=== PATIENT | male | born 1950 | race Caucasian/White ===

== ENCOUNTER 2019-09-28 13:55 | Inpatient (IN) | payer BC, MEDICARE ==
--- NOTE | 2019-09-28 14:56 | ED ---
General Adult HPI - General Chief complaint: Urogenital Stated complaint: Medication reaction INQUICKER Time Seen by Provider: 09/28/19 14:05 Source: patient, RN notes reviewed, old records reviewed Mode of arrival: ambulatory Limitations: no limitations - History of Present Illness Initial comments: This is a 68-year-old male who presents emergency Department states he hasn't seen a doctor in years. Patient comes into the emergency department today because on Friday he felt something might a bit him on the tip of his penis and after that he became very edematous. Patient states he went to a urgent care and they gave him some cream and Diflucan for it. Patient was being triaged in the triage nurse realized the patient's heart rate was 33. Patient denies any symptoms he denies lightheadedness or dizziness. Patient denies any chest pain or shortness of breath. Patient states she's never been told before his heart rate is been slow. Patient denies any other complaints besides the edema in his penis. - Related Data Allergies Allergy/AdvReac Type Severity Reaction Status Date / Time No Known Allergies Allergy Verified 09/28/19 14:09 Review of Systems ROS Statement: Those systems with pertinent positive or pertinent negative responses have been documented in the HPI. ROS Other: All systems not noted in ROS Statement are negative. Past Medical History Past Medical History: No Reported History History of Any Multi-Drug Resistant Organisms: None Reported Past Surgical History: No Surgical Hx Reported Past Psychological History: No Psychological Hx Reported Smoking Status: Never smoker Past Alcohol Use History: Occasional Past Drug Use History: None Reported General Exam - General Exam Comments Initial Comments: GENERAL: Patient is well-developed and well-nourished. Patient is nontoxic and well- hydrated and is in no acute distress. ENT: Neck is soft and supple. No significant lymphadenopathy is noted. Oropharynx is clear. Moist mucous membranes. Neck has full range of motion without eliciting any pain. EYES: The sclera were anicteric and conjunctiva were pink and moist. Extraocular movements were intact and pupils were equal round and reactive to light. Eyelids were unremarkable. PULMONARY: Unlabored respirations. Good breath sounds bilaterally. No audible rales rhonchi or wheezing was noted. CARDIOVASCULAR: Patient's heart rate is in the 30s. ABDOMEN: Soft and nontender with normal bowel sounds. No palpable organomegaly was noted. There is no palpable pulsatile mass. SKIN: Skin is clear with no lesions or rashes and otherwise unremarkable. GENITALIA: Patient's foreskin around the penis is edematous there is no hair tourniquet noted. There is no redness is no drainage is no signs of infection. NEUROLOGIC: Patient is alert and oriented x3. Cranial nerves II through XII are grossly intact. Motor and sensory are also intact. Normal speech, volume and content. Symmetrical smile. MUSCULOSKELETAL: Normal extremities with adequate strength and full range of motion. LYMPHATICS: No significant lymphadenopathy is noted PSYCHIATRIC: Normal psychiatric evaluation. Limitations: no limitations Course Vital Signs 09/28/19 09/28/19 09/28/19 14:06 14:45 15:26 Temperature 98.2 F Pulse Rate 36 L 33 L Respiratory 16 Rate Blood Pressure 136/83 184/85 O2 Sat by Pulse 99 Oximetry 09/28/19 16:16 Temperature Pulse Rate 34 L Respiratory 18 Rate Blood Pressure 182/87 O2 Sat by Pulse 98 Oximetry Medical Decision Making - Medical Decision Making EKG shows sinus rhythm with a second-degree AV block at 33 bpm [place] interval is 290 QRS is 100 QT interval is 512 QTC is 378. EKG shows no ST segment elevation or depression. Chest x-ray shows no acute normalities. Patient remained asymptomatic in the emergency department. I spoke with Dr. Webber of cardiology and he wanted the patient admitted and continued to be monitored. - Lab Data Result diagrams: 09/28/19 15:01 09/28/19 15:01 Lab Results 09/28/19 09/28/19 09/28/19 Range/Units 15:01 15:01 15:01 WBC 5.0 (3.8-10.6) k/uL RBC 4.74 (4.30-5.90) m/uL Hgb 15.9 (13.0-17.5) gm/dL Hct 47.0 (39.0-53.0) % MCV 99.3 (80.0-100.0) fL MCH 33.5 (25.0-35.0) pg MCHC 33.8 (31.0-37.0) g/dL RDW 15.3 (11.5-15.5) % Plt Count 124 L (150-450) k/uL Neutrophils % (Manual) 53 % Band Neutrophils % 4 % Lymphocytes % (Manual) 30 % Monocytes % (Manual) 11 % Eosinophils % (Manual) 2 % Neutrophils # (Manual) 2.80 (1.3-7.7) k/uL Lymphocytes # (Manual) 1.50 (1.0-4.8) k/uL Monocytes # (Manual) 0.55 (0-1.0) k/uL Eosinophils # (Manual) 0.10 (0-0.7) k/uL Nucleated RBCs 0 (0-0) /100 WBC Manual Slide Review Performed Macrocytosis Slight PT (9.0-12.0) sec INR (<1.2) APTT (22.0-30.0) sec Sodium 137 (137-145) mmol/L Potassium 4.4 (3.5-5.1) mmol/L Chloride 103 (98-107) mmol/L Carbon Dioxide 23 (22-30) mmol/L Anion Gap 11 mmol/L BUN 12 (9-20) mg/dL Creatinine 0.88 (0.66-1.25) mg/dL Est GFR (CKD-EPI)AfAm >90 (>60 ml/min/1.73 sqM) Est GFR (CKD-EPI)NonAf 90 (>60 ml/min/1.73 sqM) Glucose 106 H (74-99) mg/dL Calcium 8.9 (8.4-10.2) mg/dL Magnesium 2.1 (1.6-2.3) mg/dL Total Bilirubin 1.9 H (0.2-1.3) mg/dL AST 52 (17-59) U/L ALT 27 (4-49) U/L Alkaline Phosphatase 67 (38-126) U/L Troponin I 0.018 (0.000-0.034) ng/mL Total Protein 8.1 (6.3-8.2) g/dL Albumin 4.4 (3.5-5.0) g/dL 09/28/19 Range/Units 15:39 WBC (3.8-10.6) k/uL RBC (4.30-5.90) m/uL Hgb (13.0-17.5) gm/dL Hct (39.0-53.0) % MCV (80.0-100.0) fL MCH (25.0-35.0) pg MCHC (31.0-37.0) g/dL RDW (11.5-15.5) % Plt Count (150-450) k/uL Neutrophils % (Manual) % Band Neutrophils % % Lymphocytes % (Manual) % Monocytes % (Manual) % Eosinophils % (Manual) % Neutrophils # (Manual) (1.3-7.7) k/uL Lymphocytes # (Manual) (1.0-4.8) k/uL Monocytes # (Manual) (0-1.0) k/uL Eosinophils # (Manual) (0-0.7) k/uL Nucleated RBCs (0-0) /100 WBC Manual Slide Review Macrocytosis PT 10.7 (9.0-12.0) sec INR 1.0 (<1.2) APTT 21.3 L (22.0-30.0) sec Sodium (137-145) mmol/L Potassium (3.5-5.1) mmol/L Chloride (98-107) mmol/L Carbon Dioxide (22-30) mmol/L Anion Gap mmol/L BUN (9-20) mg/dL Creatinine (0.66-1.25) mg/dL Est GFR (CKD-EPI)AfAm (>60 ml/min/1.73 sqM) Est GFR (CKD-EPI)NonAf (>60 ml/min/1.73 sqM) Glucose (74-99) mg/dL Calcium (8.4-10.2) mg/dL Magnesium (1.6-2.3) mg/dL Total Bilirubin (0.2-1.3) mg/dL AST (17-59) U/L ALT (4-49) U/L Alkaline Phosphatase (38-126) U/L Troponin I (0.000-0.034) ng/mL Total Protein (6.3-8.2) g/dL Albumin (3.5-5.0) g/dL Critical Care Time Critical Care Time: Yes Total Critical Care Time: 35 Disposition Clinical Impression: Penile edema, Insect bite, Second degree AV block Disposition: ADMITTED IP TO THIS [facility] Referrals: None,Stated [Primary Care Provider] - 1-2 days Time of Disposition: 16:22
--- NOTE | 2019-09-28 15:29 | XR ---
EXAMINATION TYPE: XR chest 2V DATE OF EXAM: 09/28/2019 COMPARISON: None HISTORY: Chest pain, bradycardia TECHNIQUE: Frontal and lateral views of the chest are obtained. FINDINGS: There is no focal air space opacity, pleural effusion, or pneumothorax seen. The cardiac silhouette size enlarged, there are coronary artery calcifications. There is increased AP diameter ch est. Thoracic spondylosis is present. The osseous structures are intact. IMPRESSION: Cardiomegaly. Suspect coronary artery disease.
[2019-09-28 15:30] LABS: ALT 27 U/L (4-49); AST 52 U/L (17-59); African American GFR (CKD) >90 (>60 ml/min/1.73 sqM); Albumin 4.4 g/dL (3.5-5.0); Alkaline Phosphatase 67 U/L (38-126); Anion Gap 11 mmol/L; Blood Urea Nitrogen 12 mg/dL (9-20); Calcium 8.9 mg/dL (8.4-10.2); Carbon Dioxide 23 mmol/L (22-30); Chloride 103 mmol/L (98-107); Glucose 106 mg/dL (74-99); Magnesium 2.1 mg/dL (1.6-2.3); Non-African American GFR(CKD) 90 (>60 ml/min/1.73 sqM); Sodium 137 mmol/L (137-145); Total Bilirubin 1.9 mg/dL (0.2-1.3); Total Protein 8.1 g/dL (6.3-8.2)
[2019-09-28 15:46] LABS: Potassium 4.4 mmol/L (3.5-5.1)
[2019-09-28 15:52] LABS: HGB 15.9 gm/dL (13.0-17.5); MCH 33.5 pg (25.0-35.0); MCHC 33.8 g/dL (31.0-37.0); MCV 99.3 fL (80.0-100.0); Macrocytosis Slight; Mean Platelet Volume 10.2; Platelet Count 124 k/uL (150-450); RBC 4.74 m/uL (4.30-5.90); RDW 15.3 % (11.5-15.5)
[2019-09-28 16:05] LABS: Partial Thromboplastin Time 21.3 sec (22.0-30.0); Prothrombin Time 10.7 sec (9.0-12.0)
[2019-09-28 16:14] LABS: Band Neutrophils % 4 %; Monocytes # (M) 0.55 k/uL (0-1.0); Neutrophils % (M) 53 %; Nucleated Red Blood Cells 0 /100 WBC (0-0); Total Cells Counted 100
[2019-09-28] MEDS ORDERED: NITROGLYCERIN SL TABS 0.4 MG TAB SUBLINGUAL PRN (16:29)
[2019-09-28] MEDS: amLODIPine 5 MG TAB PO SCH (18:16)
[2019-09-28] MEDS ORDERED: NALOXONE 0.4 MG/ML 1 ML VIAL IV PRN (18:38)
[2019-09-28] MEDS ORDERED: ACETAMINOPHEN TAB 325 MG TAB PO PRN (18:38)
[2019-09-28] MEDS ORDERED: HYDROcodone/APAP 5-325MG 1 EACH TAB PO PRN (18:38)
--- NOTE | 2019-09-28 18:40 | P.HPIM ---
History of Present Illness H&P Date: 09/28/19 Chief Complaint: Heart block 68 show male with significant past medical history presents the ED for penile swelling. There were some concerns for insect bite. Incidentally, in the ED is found his heart rate to be in the 30s. EKG showed sinus rhythm with second- degree AV block with 2-1 AV conduction. Patient denies any headache, lower extremity edema, nausea or vomiting, fever or chills, cough, chest pain, shortness of breath, palpitations, changes in urination or bowel habits. No changes in appetite or weight. He denies any dizziness, numbness/weakness/tingling of the extremities. Review of Systems Pertinent positives and negatives as discussed in HPI, a complete review of systems was performed and all other systems are negative. Past Medical History Past Medical History: No Reported History History of Any Multi-Drug Resistant Organisms: None Reported Past Surgical History: No Surgical Hx Reported Past Psychological History: No Psychological Hx Reported Smoking Status: Never smoker Past Alcohol Use History: Occasional Past Drug Use History: None Reported Medications and Allergies Home Medications Medication Instructions Recorded Confirmed Type No Known Home Medications 09/28/19 09/28/19 History Allergies Allergy/AdvReac Type Severity Reaction Status Date / Time No Known Allergies Allergy Verified 09/28/19 16:55 Physical Exam Vitals: Vital Signs Temp Pulse Resp BP Pulse Ox 09/28/19 18:18 32 L 18 98 09/28/19 17:14 30 L 18 175/76 97 09/28/19 16:16 34 L 18 182/87 98 09/28/19 15:26 33 L 09/28/19 14:45 184/85 09/28/19 14:06 98.2 F 36 L 16 136/83 99 Intake and Output 09/28/19 09/28/19 09/28/19 06:59 14:59 22:59 Other: Weight 99.79 kg General: [non toxic], [no distress], [appears at stated age] Derm: [warm], [dry] Head: [atraumatic], [normocephalic], [symmetric] Eyes: [EOMI], [no lid lag], [anicteric sclera] Mouth: [no lip lesion], [mucus membranes moist] Cardiovascular: [S1S2 reg], [bradycardia], [positive DP pulse bilateral], Lungs: [CTA bilateral], [no rhonchi, no rales] , [no accessory muscle use] Abdominal: [soft], [ nontender to palpation], [no guarding], [no appreciable organomegaly] Ext: [no gross muscle atrophy], [no edema], [no contractures] Neuro: [ CN II-XI grossly intact], [no focal neuro deficits] Psych: [Alert], [oriented], [appropriate affect] Results CBC & Chem 7: 09/28/19 15:09/28/19 15:01 Labs: Abnormal Lab Results - Last 24 Hours (Table) 09/28/19 09/28/19 09/28/19 Range/Units 15: 15: 15:39 Plt Count 124 L (150-450) k/uL APTT 21.3 L (22.0-30.0) sec Glucose 106 H (74-99) mg/dL Total Bilirubin 1.9 H (0.2-1.3) mg/dL Assessment and Plan Assessment: Second degree AV block Thrombocytopenia Elevated total bilirubin As seen on EKG. Plans for telemetry monitoring. Follow cardiology consultation. Obtain TSH. Unknown etiology. Continue to monitor. Patient reports drinking 2 beers daily. Continue to monitor. DVT prophylaxis: [Heparin] Discussed with: [Patient and ] Anticipated discharge: [1-2 days] Anticipated discharge place: [Home] A total of [35] minutes was spent on the care of this complex patient more than 50% of the time was spent in counseling and care coordination. Patient names his decision-maker if he cant make decisions for himself. Patient like to be full code.
--- NOTE | 2019-09-28 19:00 | CONS ---
CONSULTATION Mr. Mcneill is a 68-year-old male with no history of cardiac disease, does not see a physician, who came in because of penile edema. In the emergency room he was noted to be bradycardic with evidence of 2:1 conduction with second-degree AV block. The patient denies any chest pain. He denies any dizziness. He denies any palpitation. He denies any dyspnea, PND or orthopnea. According to him he is active physically without any difficulty. He takes no medication at home. The patient denies any history of significant alcohol intake. He drinks caffeine. He has no other complaints. MEDICATIONS AT HOME: None. REVIEW OF SYSTEMS: RESPIRATORY SYSTEM: He denies any cough or fever. No wheezing. No history of obstructive lung disease. GI SYSTEM: No recent GI bleeding, no peptic ulcer disease. SYSTEM: No dysuria or hematuria. NERVOUS SYSTEM: No history of stroke or seizure. PHYSICAL EXAMINATION: He is a 68-year-old male, alert, oriented, in no apparent distress. Blood pressure running in the 130s to 170s with a heart rate in the 30s. HEAD: Normocephalic. EYES: Sclerae anicteric. NECK: Good carotid upstroke, no bruit. No jugular venous distention. LUNGS: Clear to auscultation. HEART; Regular rate and rhythm. S1,S2, no S3. Bradycardic. No rub. ABDOMEN: Soft, nontender Positive bowel sounds. No organomegaly. EXTREMITIES: No edema. Intact distal pulses. EKG revealed a sinus mechanism with second-degree AV block with 2:1 conduction. The QRS duration is normal. There is no evidence of ST-segment changes. Chest x-ray shows coronary artery calcification. IMPRESSION: 1. Second-degree AV block, asymptomatic, duration unknown. 2. Coronary artery calcification on the chest x-ray. RECOMMENDATION: From the cardiac standpoint, I had a long discussion with the patient regarding the finding. I discussed with him the possible need for a permanent pacemaker. He is at this time considering signing against medical advice. If he stays in the hospital I will obtain echocardiogram with Doppler and thyroid function test. I will start him on Norvasc 5 mg daily to optimize his blood pressure control. Depending on his progress, further recommendation will be made. Thank you for this consult. Will follow with you. MMODL / IJN: [id number] /
[2019-09-28 20:25] LABS: T4, Free (Free Thyroxine) 1.1 ng/dL (0.78-2.19)
[2019-09-28] MEDS: HEPARIN SODIUM,PORCINE 5,000 UNIT/ML 1 ML VIAL SQ SCH (21:09)
[2019-09-29 07:30] LABS: Anion Gap 6 mmol/L; Blood Urea Nitrogen 12 mg/dL (9-20); Carbon Dioxide 29 mmol/L (22-30); Chloride 104 mmol/L (98-107); Glucose 115 mg/dL (74-99); Potassium 4.3 mmol/L (3.5-5.1); Sodium 139 mmol/L (137-145)
[2019-09-29 07:31] LABS: African American GFR (CKD) >90 (>60 ml/min/1.73 sqM); Calcium 8.9 mg/dL (8.4-10.2); Cholesterol 179 mg/dL (<200); HDL Cholesterol 49 mg/dL (40-60); LDL Cholesterol,Calculated 113 mg/dL (0-99); Non-African American GFR(CKD) 89 (>60 ml/min/1.73 sqM); Triglycerides 83 mg/dL (<150)
[2019-09-29] MEDS: HEPARIN SODIUM,PORCINE 5,000 UNIT/ML 1 ML VIAL SQ SCH ×2 (08:44→20:27)
[2019-09-29] MEDS: SODIUM CHLORIDE 0.9% 1,000 ML IV SCH ×2 (08:44→08:45)
[2019-09-29] MEDS: ASPIRIN 81 MG PO SCH (08:51)
[2019-09-29] MEDS: amLODIPine 5 MG TAB PO SCH (08:51)
[2019-09-29] MEDS ORDERED: ASPIRIN 325 MG TAB PO SCH (09:00)
--- NOTE | 2019-09-29 09:50 | PN ---
PROGRESS NOTE Mr. Mcneill is a 68-year-old male who presented with penile edema, was noted to have 2- 1 AV block. He is doing well this morning. He is denying any chest pain. He denies any dizziness, palpitation He denies any nausea or vomiting. On the monitor during the night, he had an episode of complete heart block, totally asymptomatic. He is hemodynamically stable otherwise. He continued to be on aspirin once a day, amlodipine 5 mg daily. PHYSICAL EXAMINATION: Blood pressure 146/60 with a heart rate in the 30s. LUNGS: Clear. HEART: Regular rate and rhythm, S1, S2. No S3. Bradycardic. No rub or gallop. ABDOMEN: Soft, nontender. EXTREMITIES: No edema. LAB DATA: Revealed troponin 0.018, less than 0.012, 0.015, BUN and creatinine 12 and 0.9, potassium 4.3. Cholesterol 179, LDL 113, free T4 is 1.1, TSH 6.2. Hemoglobin of 15.9. IMPRESSION: 1. Episode of complete heart block and episode of 2-1 conduction. 2. Hypertension, under better control. RECOMMENDATION: Patient will proceed with permanent pacemaker implantation tomorrow with Dr. Sapp. He will have HIS bundle pacing. I discussed with the patient the finding and recommendation. He has full understanding and agreement. Depending on his progress, further recommendation will be made. MMODL / IJN: [id number] /
--- NOTE | 2019-09-29 11:00 | P.PN ---
Subjective Progress Note Date: 09/29/19 Principal diagnosis: second-degree heart block patient was seen and examined. No acute events overnight. Patient denies any chest pain, shortness breath or palpitations. No nausea or vomiting. No fever or chills. Objective - Vital Signs Vital signs: Vital Signs Temp 98.6 F 09/29/19 08:00 Pulse 33 L 09/29/19 08:00 Resp 18 09/29/19 08:00 BP 165/78 09/29/19 08:00 Pulse Ox 99 09/29/19 08:00 Intake & Output 09/28/19 09/29/19 09/29/19 18:59 06:59 18:59 Weight 99.79 kg 97.069 kg Other: Voiding Method Urinal Urinal - Exam General: [non toxic], [no distress], [appears at stated age] Derm: [warm], [dry] Head: [atraumatic], [normocephalic], [symmetric] Eyes: [EOMI], [no lid lag], [anicteric sclera] Mouth: [no lip lesion], [mucus membranes moist] Cardiovascular: [S1S2 reg], [bradycardia], [positive DP pulse bilateral], Lungs: [CTA bilateral], [no rhonchi, no rales] , [no accessory muscle use] Abdominal: [soft], [ nontender to palpation], [no guarding], [no appreciable organomegaly] Ext: [no gross muscle atrophy], [no edema], [no contractures] Neuro: [ CN II-XI grossly intact], [no focal neuro deficits] Psych: [Alert], [oriented], [appropriate affect] - Labs CBC & Chem 7: 09/28/19 15:09/29/19 06:26 Labs: Abnormal Lab Results - Last 24 Hours (Table) 09/28/19 09/28/19 09/28/19 Range/Units 15: 15: 15:39 Plt Count 124 L (150-450) k/uL APTT 21.3 L (22.0-30.0) sec Glucose 106 H (74-99) mg/dL Total Bilirubin 1.9 H (0.2-1.3) mg/dL LDL Cholesterol, Calc (0-99) mg/dL TSH (0.465-4.680) mIU/L 09/28/19 09/29/19 Range/Units 19:01 06:26 Plt Count (150-450) k/uL APTT (22.0-30.0) sec Glucose 115 H (74-99) mg/dL Total Bilirubin (0.2-1.3) mg/dL LDL Cholesterol, Calc 113 H (0-99) mg/dL TSH 6.280 H (0.465-4.680) mIU/L Assessment and Plan Assessment: Second degree AV block Subclinical hypothyroidism Thrombocytopenia Elevated total bilirubin As seen on EKG. Plans for telemetry monitoring. Follow cardiology consultation. Follow echocardiogram. Plans for pacemaker tomorrow. Repeat TSH and free T4 in 6 weeks. Unknown etiology. Continue to monitor. Patient reports drinking 2 beers daily. Continue to monitor.
--- NOTE | 2019-09-29 12:00 | ECHOF ---
Referral Reason:bradycardia MEASUREMENTS -------- HEIGHT: 152.4 cm WEIGHT: 97.1 kg BP: 146/67 RVIDd: 3.9 cm (< 3.3) IVSd: 1.1 cm (0.6 - 1.1) LVIDd: 5.4 cm (3.9 - 5.3) LVPWd: 0.9 cm (0.6 - 1.1) EDV(Teich): 142 ml IVSs: 1.4 cm LVIDs: 4.7 cm LVPWs: 1.1 cm %IVS Thck: 23 % ESV(Teich): 102 ml EF(Teich): 28 % %FS: 13 % SV(Teich): 40 ml LA Diam: 4.1 cm (2.7 - 3.8) Ao Diam: 3.0 cm (2.0 - 3.7) AV Cusp: 2.1 cm (1.5 - 2.6) LA Diam: 4.9 cm (2.7 - 3.8) MV EXCURSION: 16.399 mm (> 18.000) MV EF SLOPE: 124 mm/s (70 - 150) EPSS: 0.4 cm MV E Srini: 0.82 m/s MV DecT: 210 ms MV Dec Gooding: 3.9 m/s MV A Srini: 0.93 m/s MV E/A Ratio: 0.88 MV PHT: 61 ms TR Vmax: 3.27 m/s TR maxP.82 mmHg RAP: 5.00 mmHg RVSP: 47.82 mmHg FINDINGS -------- Undetermined rhythm. This was a techncally difficult study with suboptimal views, , Lumason utilized for enhancement of im ages. The left ventricular size is normal. There is mild concentric left ventricular hypertrophy. Overa ll left ventricular systolic function is normal with, an EF between 55 - 60 %. The right ventricle is normal in size. The left atrium is mildly dilated. The right atrial size is normal. 5.0mg OF Lumason UTLIZED: 2 OR MORE WALL SEGMENTS NOT VISUALIZED. The aortic valve is trileaflet, and appears structurally normal. No aortic stenosis or regurgitation. Mild mitral regurgitation is present. Mild tricuspid regurgitation present. There is moderate pulmonary hypertension. Trace/mild (physiologic) pulmonic regurgitation. The aortic root size is normal. There is no pericardial effusion. CONCLUSIONS -------- 1. The left ventricular size is normal. 2. There is mild concentric left ventricular hypertrophy. 3. Overall left ventricular systolic function is normal with, an EF between 55 - 60 %. 4. The left atrium is mildly dilated. 5. The right atrial size is normal. 6. Mild mitral regurgitation is present. 7. Mild tricuspid regurgitation present. 8. There is moderate pulmonary hypertension. 9. Trace/mild (physiologic) pulmonic regurgitation. LICENSED CLINICIAN: Shyanne Agustin RDCS
[2019-09-29] MEDS ORDERED: ONDANSETRON 4 MG/2 ML VIAL IVP PRN (22:10)
[2019-09-29] MEDS ORDERED: HYDROmorphone 0.5 MG/0.5 ML SYRINGE IVP PRN (22:10)
[2019-09-29] MEDS ORDERED: LACTATED RINGERS 1,000 ML IV SCH (22:15)
[2019-09-30] MEDS: SODIUM CHLORIDE 0.9% 1,000 ML IV SCH ×2 (05:09→05:13)
[2019-09-30] MEDS ORDERED: ceFAZolin 1,000 MG in SODIUM CHLORIDE 0.9% IRRIGATIO 250 ML IRRIGATION ONE (06:00)
[2019-09-30] MEDS ORDERED: fentaNYL (PF) 50 MCG/ML 2 ML AMP ONE (07:55)
[2019-09-30] MEDS ORDERED: ATROPINE SULFATE 0.1 MG/ML 10ML SYRINGE ONE (07:55)
[2019-09-30] MEDS ORDERED: MIDAZOLAM 2 MG/2 ML VIAL ONE (07:55)
[2019-09-30] MEDS ORDERED: IV FLUID CONTINUATION 1,000 ML IV ONE (08:04)
[2019-09-30] MEDS ORDERED: IOPAMIDOL-370 50ML BTL INJ ONE (08:15)
[2019-09-30] MEDS ORDERED: LIDOCAINE 1% INJ 10MG/ML (20 ML MDV) ONE ×2 (08:24→08:25)
[2019-09-30] MEDS ORDERED: LIDOCAINE 1% INJ 10MG/ML (20 ML MDV) SQ ONE (08:34)
[2019-09-30] MEDS ORDERED: HYDROcodone/APAP 5-325MG 1 EACH TAB PO PRN (10:40)
--- NOTE | 2019-09-30 10:46 | P.PCN ---
Preoperative Diagnosis: Successful biventricular pacing with physiologic septal pacing/His bundle pacing for severe bradycardia with complete heart block Selective His bundle capture DDD 50-130 bpm No acute complications
[2019-09-30] MEDS: HEPARIN SODIUM,PORCINE 5,000 UNIT/ML 1 ML VIAL SQ SCH ×2 (11:04→20:10)
[2019-09-30] MEDS: ASPIRIN 81 MG PO SCH (11:09)
[2019-09-30] MEDS: amLODIPine 5 MG TAB PO SCH (11:09)
--- NOTE | 2019-09-30 12:19 | P.PN ---
Subjective Progress Note Date: 09/30/19 Principal diagnosis: second-degree heart block patient was seen and examined. No acute events overnight. Patient denies any chest pain, shortness breath or palpitations. No nausea or vomiting. No fever or chills. Underwent pacemaker placement today, seen after his procedure. No pain at the site of incision. Objective - Vital Signs Vital signs: Vital Signs Temp 97.9 F 09/30/19 11:10 Pulse 50 L 09/30/19 12:00 Resp 18 09/30/19 11:10 BP 145/71 09/30/19 11:10 Pulse Ox 97 09/30/19 11:10 Intake & Output 09/29/19 09/30/19 09/30/19 18:59 06:59 18:59 Intake Total 360 550 Balance 360 550 Weight 95.4 kg Intake: IV 550 Oral 360 Other: Voiding Method Urinal Urinal # Voids 1 1 - Exam General: [non toxic], [no distress], [appears at stated age] Derm: [warm], [dry] Head: [atraumatic], [normocephalic], [symmetric] Eyes: [EOMI], [no lid lag], [anicteric sclera] Mouth: [no lip lesion], [mucus membranes moist] Cardiovascular: [S1S2 reg], [bradycardia], [positive DP pulse bilateral], [left chest dressing clean dry and intact] Lungs: [CTA bilateral], [no rhonchi, no rales] , [no accessory muscle use] Abdominal: [soft], [ nontender to palpation], [no guarding], [no appreciable organomegaly] Ext: [no gross muscle atrophy], [no edema], [no contractures] Neuro: [no focal neuro deficits] Psych: [Alert], [oriented], [appropriate affect] - Labs CBC & Chem 7: 09/28/19 15:01 09/29/19 06:26 Assessment and Plan Assessment: Complete heart block HLD Subclinical hypothyroidism Thrombocytopenia Elevated total bilirubin As seen on EKG. Continue to monitor overnight for any arrhythmias. Echo shows EF 55-60% with mild concentric LVH. s/p POD 0 pacemaker placement. LDL 113 Patient would benefit from structured weight loss program. Repeat TSH and free T4 in 6 weeks. Unknown etiology. Continue to monitor. Patient reports drinking 2 beers daily. Continue to monitor. Anticipate DC home tomorrow.
--- NOTE | 2019-09-30 12:45 | PN ---
PROGRESS NOTE Mr. Mcneill is a 68-year-old male who presented with a second-degree and third-degree AV block of unknown duration. He underwent permanent pacemaker implantation today with biventricular pacing. He is doing well this morning. I think he is feeling well. He denies any dizziness. No palpitation. Interestingly, the patient has not complained of any dizziness or significant fatigue. His echocardiogram revealed a preserved ventricular size and systolic function. He is on amlodipine 5 mg daily, aspirin once a day. PHYSICAL EXAMINATION: Blood pressure running in the 120s to 140s with a heart rate in the 60s now. LUNGS: Clear. HEART: Regular rate and rhythm, S1, S2. No S3. No rub. ABDOMEN: Soft, nontender. EXTREMITIES: No edema. Pacemaker site clean. LAB DATA: Revealed BUN and creatinine 12 and 0.9. His cholesterol is 179 with an LDL of 113. IMPRESSION: 1. Complete heart block, status post biventricular pacing. 2. Hypertension, not documented in the past. RECOMMENDATION: Will continue present therapy. Interrogate the pacemaker tomorrow. If he is stable, I would expect he should be able to be discharged home tomorrow. MMODL / IJN: [id number] /
--- NOTE | 2019-09-30 13:10 | PCN ---
PROCEDURE NOTE A 68-year-old male patient presenting with complete heart block with severe bradycardia in the 30s, narrow QRS escape rhythm in the 30s. He is brought in for a biventricular pacemaker implantation to avoid 100% RV pacing. Patient was brought to the EP lab in a fasting state. After the informed consent regarding complications and the reasons for the biventricular pacing, the left shoulder area was prepped and draped as per protocol; 1% lidocaine was used for local anesthesia. IV antibiotics were administered. A 4 cm incision was made parallel to the deltopectoral groove, about 1.5 cm medial to it. The incision was carried down to the level of the pectoralis muscle. A subfascial pocket was made. Hemostasis was assured. The left axillary vein was accessed at 3 separate points under fluoroscopy and via appropriately-sized introducer sheaths, 3 leads were positioned. The atrial lead was a Medtronic model #4574, 53 cm in length and serial #[id number]. This was a passive lead positioned in the right atrial appendage. P-waves 3 mV, pacing threshold 0.7 V at 0.4 milliseconds, pacing impedance of 532 ohms. A 10 V test is negative. The final RV lead used was a passive Medtronic lead 58 cm in length and serial #[id number]. R-waves 7 mV, pacing impedance 1197 ohms and pacing threshold 0.5 V at 0.4 milliseconds, 10 V test negative. The patient's heart was vertically oriented, especially the right ventricle. Initially, a screw-in lead was used and carefully positioned in the right ventricle, but it was unstable in the apical position, once the stylet was withdrawn. It appeared that as I withdrew the stylet, the tricuspid contraction would result in retraction of the lead, away from the RV apex with loss of capture. Multiple attempts were made to position in the RV apex and low RV septum. However, multiple times were also made to implant in the mid to high RV septum using a Mond stylet. However, when the Mond stylet was used, it would repeatedly dislodge the RV lead that was temporarily well positioned in RVOT/PA. Therefore, the screw lead was abandoned and a passive lead was positioned in the RV apex and it was completely stable with excellent sensing and pacing function. The HIS bundle lead was model #3830, 69 cm in length and serial #[id number]. The HIS bundle was mapped and the lead was screwed in. The current injury was noted in the HIS bundle. The pacing impedance 513 ohms. Complete loss of capture 1 V at 1 millisecond (nonselective); however there was virtually selective capture down to 1.3 V at 1 millisecond. All 3 leads secured to the underlying pectoralis muscles and connected to the generator ([employer]) model number W1 TR02, serial #[id number]. The leads and the generator were then placed in a subfascial pocket. The wound was closed in 3 layers and dressed per protocol. The device was programmed to DDD mode at 50-130 ppm with preferential HIS bundle pacing to avoid RV pacing. The patient tolerated the procedure well without any acute complications. RESULTS: Successful biventricular pacemaker implantation with physiologic septal pacing to avoid RV pacing in this gentleman who presented with complete heart block and severe bradycardia. Suggest outpatient workup for complete heart block. MMODL / IJN: [id number] /
[2019-09-30] MEDS: ACETAMINOPHEN TAB 325 MG TAB PO PRN ×2 (15:50→22:11)
[2019-09-30 16:54] LABS: Glucose,Whole Blood 141 mg/dL (75-99)
[2019-10-01] MEDS: ACETAMINOPHEN TAB 325 MG TAB PO PRN ×2 (04:17→10:51)
[2019-10-01 08:18] LABS: Basophils # (A) 0.1 k/uL (0-0.2); Basophils % (A) 1 %; Eosinophils # (A) 0.2 k/uL (0-0.7); Eosinophils % (A) 3 %; HCT 43.1 % (39.0-53.0); HGB 14.5 gm/dL (13.0-17.5); Lymphocytes # (A) 1.5 k/uL (1.0-4.8); Lymphocytes % (A) 30 %; MCH 33.7 pg (25.0-35.0); MCHC 33.7 g/dL (31.0-37.0); Macrocytosis Slight; Mean Platelet Volume 7.5; Monocytes # (A) 0.3 k/uL (0-1.0); Monocytes % (A) 6 %; Neutrophils % (A) 57 %; Platelet Count 127 k/uL (150-450); RBC 4.31 m/uL (4.30-5.90); RDW 15.4 % (11.5-15.5); WBC 5.2 k/uL (3.8-10.6)
[2019-10-01 08:27] LABS: African American GFR (CKD) >90 (>60 ml/min/1.73 sqM); Anion Gap 8 mmol/L; Blood Urea Nitrogen 14 mg/dL (9-20); Calcium 8.4 mg/dL (8.4-10.2); Carbon Dioxide 25 mmol/L (22-30); Chloride 105 mmol/L (98-107); Glucose 134 mg/dL (74-99); Non-African American GFR(CKD) >90 (>60 ml/min/1.73 sqM); Potassium 4.5 mmol/L (3.5-5.1); Sodium 138 mmol/L (137-145)
[2019-10-01] MEDS: HEPARIN SODIUM,PORCINE 5,000 UNIT/ML 1 ML VIAL SQ SCH (09:08)
[2019-10-01] MEDS: amLODIPine 5 MG TAB PO SCH (09:08)
[2019-10-01] MEDS: ASPIRIN 81 MG PO SCH (09:08)
--- NOTE | 2019-10-01 09:08 | XR ---
EXAMINATION TYPE: XR chest 2V DATE OF EXAM: 10/01/2019 COMPARISON: 09/28/2019 TECHNIQUE: PA and lateral views submitted. HISTORY: Lead placement FINDINGS: The lungs are clear and there is no pneumothorax, pleural effusion, or focal pneumonia. Triple lead lead pacemaker seen with no evidence of pneumothorax. Heart size is normal. No overt failure. IMPRESSION: 1. No postprocedural complication.
--- NOTE | 2019-10-01 10:35 | P.DS ---
Providers Date of admission: 09/28/19 16:29 Expected date of discharge: 10/01/19 Attending physician: Anu Cat MD Consults: 09/28/19 16:29 Consult Physician Urgent Consulting Provider: [facility] Consult Reason/Comments: Second-degree AV block Do you want consulting provider notified?: Yes Primary care physician: Stated None Hospital Course: 68 show male with significant past medical history presents the ED for penile swelling. There were some concerns for insect bite. Incidentally, in the ED is found his heart rate to be in the 30s. EKG showed sinus rhythm with second- degree AV block with 2-1 AV conduction. Patient denies any headache, lower extremity edema, nausea or vomiting, fever or chills, cough, chest pain, shortness of breath, palpitations, changes in urination or bowel habits. No changes in appetite or weight. He denies any dizziness, numbness/weakness/tingling of the extremities. His penile swelling resolved. Echocardiogram was obtained which showed EF 55- 60% with mild concentric LVH. Cardiology recommended pacemaker. Pacemaker was placed. Lipid panel showed elevated LDL of 113. His TSH was 6.28 with free T4 within normal limits. Patient was seen and examined. No acute events overnight. Patient denies any chest pain, shortness of breath or palpitations. No nausea or vomiting. No dizziness. General: [non toxic], [no distress], [appears at stated age] Derm: [warm], [dry] Head: [atraumatic], [normocephalic], [symmetric] Eyes: [EOMI], [no lid lag], [anicteric sclera] Mouth: [no lip lesion], [mucus membranes moist] Cardiovascular: [S1S2 reg], [bradycardia], [positive DP pulse bilateral], [left chest dressing clean dry and intact] Lungs: [CTA bilateral], [no rhonchi, no rales] , [no accessory muscle use] Abdominal: [soft], [ nontender to palpation], [no guarding], [no appreciable organomegaly] Ext: [no gross muscle atrophy], [no edema], [no contractures] Neuro: [no focal neuro deficits] Psych: [Alert], [oriented], [appropriate affect] Complete heart block HLD Subclinical hypothyroidism Thrombocytopenia Elevated total bilirubin As seen on EKG. Continue to monitor overnight for any arrhythmias. Echo shows EF 55-60% with mild concentric LVH. s/p POD 1 pacemaker placement. LDL 113 Patient would benefit from structured weight loss program. Repeat TSH and free T4 in 6 weeks. Unknown etiology. Continue to monitor. Patient reports drinking 2 beers daily. Continue to monitor. Anticipate DC home today. Needs cardiology clearance. Needs pacemaker interrogation. This complex discharge took about 35 minutes to complete. Pertinent Studies: Chest x-ray, echocardiogram Procedures: Pacemaker placement Patient Condition at Discharge: Stable Plan - Discharge Summary Discharge Rx Participant: No New Discharge Prescriptions: New Aspirin 81 mg PO DAILY #30 chew amLODIPine [Norvasc] 5 mg PO DAILY #30 tab Discharge Medication List Aspirin 81 mg PO DAILY #30 chew 10/01/19 [Rx] amLODIPine [Norvasc] 5 mg PO DAILY #30 tab 10/01/19 [Rx] Follow up Appointment(s)/Referral(s): Tone Webber MD [STAFF PHYSICIAN] - 1 Week None,Stated [Primary Care Provider] - 1-2 days Activity/Diet/Wound Care/Special Instructions: Diet: Cardiac Follow-up PCP within 3 days of discharge. Follow-up with cardiology within 1 week of discharge. Take all medications as advised per come back to the ED or call 911 for chest pain, shortness breath, palpitations or dizziness. Discharge Disposition: HOME SELF-CARE
--- NOTE | 2019-10-01 10:53 | PN ---
PROGRESS NOTE Mr. Mcneill is a 68-year-old male who was found to have complete heart block, underwent biventricular pacing. He is feeling better. According to him, he felt much better yesterday with better energy. Initially, he did not think that there is any significant change in his energy, but after the pacemaker now, he feels that he is better overall. He denies any dizziness or palpitation. He denies any nausea. He has normal function of his pacemaker. He continues to be at this time on amlodipine 5 mg daily and aspirin once a day. PHYSICAL EXAMINATION: Blood pressure 129/70 with a heart rate in the 50s. LUNGS: Clear. HEART: Regular rate and rhythm. S1, S2. No S3. No rub with a pacemaker site clean. ABDOMEN: Soft, nontender. EXTREMITIES: No edema. Chest x-ray revealed no evidence of pneumothorax. LAB DATA: Revealed BUN and creatinine 14 and 0.77, hemoglobin of 14.5. IMPRESSION: 1. Status post permanent pacemaker implantation for complete heart block. 2. Prior history of hypertension, stable. RECOMMENDATION: Will review the interrogation of his device. If there is no evidence of abnormality, I will expect the patient should be able to be discharged home today and followed as an outpatient. MMODL / IJN: [id number] /
[2019-10-01 11:05] VITALS: BP 144/78; PULSE 51; RESP 18; TEMP 98.1
== END 2019-10-01 12:20 | disposition home or self-care (01) | DRG 244 ==
LOC: EC 13:55 → 3SCARD 16:29
PROVIDERS: ADMIT Family Medicine; ATTEND Family Medicine
PROC: 0JH607Z Insertion of Cardiac Resynchronization Pacemaker Pulse Generator into Chest Subcutaneous Tissue and Fascia, Open Approach (ICD-10-PCS; principal; 2019-09-30 08:05)
PROC: 02HK3JZ Insertion of Pacemaker Lead into Right Ventricle, Percutaneous Approach (ICD-10-PCS; principal; 2019-09-30 08:05)
PROC: 02HL3JZ Insertion of Pacemaker Lead into Left Ventricle, Percutaneous Approach (ICD-10-PCS; principal; 2019-09-30 08:05)
PROC: 02H63JZ Insertion of Pacemaker Lead into Right Atrium, Percutaneous Approach (ICD-10-PCS; principal; 2019-09-30 08:05)
DX: I44.1 Atrioventricular block, second degree (principal); D69.6 Thrombocytopenia, unspecified; I44.2 Atrioventricular block, complete; N48.89 Other specified disorders of penis; R00.1 Bradycardia, unspecified; I25.10 Atherosclerotic heart disease of native coronary artery without angina pectoris; I25.84 Coronary atherosclerosis due to calcified coronary lesion; I10 Essential (primary) hypertension; E03.9 Hypothyroidism, unspecified; E78.5 Hyperlipidemia, unspecified; W57.XXXA Bitten or stung by nonvenomous insect and other nonvenomous arthropods, initial encounter
CPT/HCPCS: 33208; 33225; 36415; 71046; 80048; 80053; 80061; 83735; 84439; 84443; 84484; 85025; 85610; 85730; 93005; 93306; 99291

== ENCOUNTER 2022-05-12 12:37 | Inpatient (IN) | payer BC, MEDICARE ==
--- NOTE | 2022-05-12 13:11 | ED ---
Weakness HPI - General Chief complaint: Weakness Stated complaint: Fall, diarrhea Time Seen by Provider: 05/12/22 12:46 Source: patient, family Mode of arrival: wheelchair Limitations: no limitations - History of Present Illness Initial comments: 71-year-old male with past medical history of esophageal cancer diagnosed March 20 on chemotherapy who presents emergency Department with nausea, vomiting and diarrhea. He gets chemotherapy every 3 weeks. Last chemo was on Friday. He has had loose, watery brown stool for the past 24 hours. States that he has been consistently on the toilet. He is lightheaded and fell twice today. Denies hitting his head. Denies any injuries from the fall. He has been extremely weak. Has poor oral intake. states that he has lost another 20 pounds from when he was admitted earlier this month. She is requesting a peg tube placements as the patient is not taking any nutrition. Denies fevers area no hematemesis. No black or bloody stools. No other sick contacts. No coughing. Denies chest pain or shortness of breath. No other alleviating, precipitating or modifying factors - Related Data Home Medications Medication Instructions Recorded Confirmed carvediloL [Coreg] 6.25 mg PO BID 03/21/22 05/12/22 HYDROcodone/APAP 7.5-325MG [[place] 1 tab PO Q6HR PRN 03/30/22 05/12/22 7.5-325] Morphine Sulfate [Morphine Sulfate 15 mg PO BID 03/30/22 05/12/22 ER] LORazepam [Ativan] 0.5 mg PO Q6H PRN 04/17/22 05/12/22 Lidocaine Viscous 2% [Xylocaine 30 ml PO TID PRN 05/12/22 05/12/22 Viscous] Prochlorperazine [Compazine] 10 mg PO Q6H PRN 05/12/22 05/12/22 chlorproMAZINE [Thorazine] 10 mg PO Q6H PRN 05/12/22 05/12/22 Previous Rx's Medication Instructions Recorded amLODIPine [Norvasc] 5 mg PO DAILY #30 tab 10/01/19 Pantoprazole Sodium [Protonix] 40 mg PO DAILY #30 tab 03/23/22 Ondansetron [Zofran] 4 mg PO Q4HR PRN #45 tab 04/08/22 Acetaminophen Tab [Tylenol] 650 mg PO Q4HR PRN tab 04/09/22 Allergies Allergy/AdvReac Type Severity Reaction Status Date / Time No Known Allergies Allergy Verified 05/12/22 16:09 Review of Systems ROS Statement: Those systems with pertinent positive or pertinent negative responses have been documented in the HPI. ROS Other: All systems not noted in ROS Statement are negative. Past Medical History Past Medical History: Cancer, Hypertension Additional Past Medical History / Comment(s): esophageal cancer dx feb1. History of Any Multi-Drug Resistant Organisms: None Reported Past Surgical History: Pacemaker Past Anesthesia/Blood Transfusion Reactions: No Reported Reaction Type of Cardiac Device: Permanent Pacemaker Device Placement Date:: 2020 Past Psychological History: No Psychological Hx Reported Smoking Status: Never smoker Past Alcohol Use History: None Reported Past Drug Use History: None Reported - Past Family History Mother Family Medical History: Hypertension General Exam Limitations: no limitations General appearance: alert, in no apparent distress Head exam: Present: atraumatic, normocephalic, normal inspection Eye exam: Present: normal appearance, PERRL, EOMI. Absent: scleral icterus, conjunctival injection, periorbital swelling ENT exam: Present: normal exam, mucous membranes moist Neck exam: Present: normal inspection. Absent: tenderness, meningismus, lymphadenopathy Respiratory exam: Present: normal lung sounds bilaterally. Absent: respiratory distress, wheezes, rales, rhonchi, stridor Cardiovascular Exam: Present: regular rate, normal rhythm, normal heart sounds. Absent: systolic murmur, diastolic murmur, rubs, gallop, clicks GI/Abdominal exam: Present: soft, normal bowel sounds. Absent: distended, tenderness, guarding, rebound, rigid Extremities exam: Present: normal inspection, full ROM, normal capillary refill. Absent: tenderness, pedal edema, joint swelling, calf tenderness Back exam: Present: normal inspection Neurological exam: Present: alert, oriented X3, CN II-XII intact Psychiatric exam: Present: normal affect, normal mood Skin exam: Present: warm, dry, intact, normal color. Absent: rash Course Vital Signs 05/12/22 05/12/22 05/12/22 12:41 13:44 15:15 Temperature 98.4 F Pulse Rate 99 83 Pulse Rate [ 88 Machine Cloth Examiner ] Respiratory 18 18 Rate Blood Pressure 113/75 150/87 Blood Pressure [Left Arm Standing] Blood Pressure 155/89 [Left Arm Supine] O2 Sat by Pulse 98 98 Oximetry 05/12/22 05/12/22 15:25 15:30 Temperature Pulse Rate 67 Pulse Rate [ 86 Machine Cloth Examiner ] Respiratory 16 Rate Blood Pressure 111/70 Blood Pressure 111/87 [Left Arm Standing] Blood Pressure [Left Arm Supine] O2 Sat by Pulse 96 Oximetry EKG Findings - EKG Comments: EKG Findings:: EKG demonstrates a electronic ventricular pacemaker. Rate of 72. MO interval 122. QRS 138. QTC of 442. Inverted T-wave ST depression V2 through V6 Medical Decision Making - Medical Decision Making Was pt. sent in by a medical professional or institution (, NAYELY, CREDIT CARD CLERK, urgent care, hospital, or fpc...) When possible be specific @ -No Did you speak to anyone other than the patient for history (EMS, parent, family, police, friend...)? What history was obtained from this source @ - Did you review nursing and triage notes (agree or disagree)? Why? @ -I reviewed and agree with nursing and triage notes Were old charts reviewed (outside hosp., previous admission, EMS record, old EK G, old radiological studies, urgent care reports/EKG's, fpc records)? Report findings @ -Reviewed previous records from hospitalizations Differential Diagnosis (chest pain, altered mental status, abdominal pain women, abdominal pain men, vaginal bleeding, weakness, fever, dyspnea, syncope, headache, dizziness, GI bleed, back pain, seizure, CVA, palpatations, mental health, musculoskeletal)? @ -nausea and vomiting, dehydration, chemo-induced emesis, gi bleed EKG interpreted by me (3pts min.). @ -As above X-rays interpreted by me (1pt min.). @ -Yes CT interpreted by me (1pt min.). @ -None done U/S interpreted by me (1pt. min.). @ -None done What testing was considered but not performed or refused? (CT, X-rays, U/S, labs)? Why? @ -None What meds were considered but not given or refused? Why? @ -None Did you discuss the management of the patient with other professionals (margarita bateman i.e. , NAYELY, CREDIT CARD CLERK, lab, RT, psych nurse, social media assistant, distributor cleaner, teacher, intelligence officer basic, keycase assembler)? Give summary @ -Admitting physician Was smoking cessation discussed for >3mins.? @ -No Was critical care preformed (if so, how long)? @ -No Were there social determinants of health that impacted care today? How? (Homelessness, low income, unemployed, alcoholism, drug addiction, transportation, low edu. Level, literacy, decrease access to med. care, intermediate, rehab)? @ -No Was there de-escalation of care discussed even if they declined (Discuss DNR or withdrawal of care, Hospice)? DNR status @ -No What co-morbidities impacted this encounter? (DM, HTN, Smoking, COPD, CAD, Cancer, CVA, ARF, Chemo, Hep., AIDS, mental health diagnosis, sleep apnea, morbid obesity)? @ -esophageal ca on chemo Was patient admitted / discharged? Hospital course, mention meds given and route, prescriptions, significant lab abnormalities, going to OR and other pertinent info. @ -Upon arrival patient's placed into room 7. There are history of physical exam is performed. IV access established laboratory studies were conducted. Patient is given a 2 L bolus of normal saline. He is given Zofran for nausea. Laboratory studies are reviewed and discussed with the patient. Patient will be admitted with oncology and surgery to consult. Patient was agreeable to this and was admitted in stable condition Undiagnosed new problem with uncertain prognosis? @ -Yes Drug Therapy requiring intensive monitoring for toxicity (Heparin, Nitro, Insulin, Cardizem)? @ -No Were any procedures done? @ -No Diagnosis/symptom? @ -acute chemo induced n/v/d Acute, or Chronic, or Acute on Chronic? @ -acute Uncomplicated (without systemic symptoms) or Complicated (systemic symptoms)? @ -complicated Side effects of treatment? @ -No Exacerbation, Progression, or Severe Exacerbation? @ -No Poses a threat to life or bodily function? How? (Chest pain, USA, SD, pneumonia, PE, COPD, DKA, ARF, appy, cholecystitis, CVA, Diverticulitis, Homicidal, Suicida l, threat to staff... and all critical care pts) @ -yes - Lab Data Result diagrams: 05/16/22 05:34 05/16/22 05:34 Lab Results 05/12/22 05/12/2223 Range/Units 02:32 13:28 13:28 WBC 12.6 H (3.8-10.6) k/uL RBC 4.08 L (4.30-5.90) m/uL Hgb 13.1 (13.0-17.5) gm/dL Hct 38.2 L (39.0-53.0) % MCV 93.6 (80.0-100.0) fL MCH 32.1 (25.0-35.0) pg MCHC 34.3 (31.0-37.0) g/dL RDW 17.0 H (11.5-15.5) % Plt Count 292 (150-450) k/uL MPV 8.1 Neutrophils % 93 % Lymphocytes % 6 % Monocytes % 1 % Eosinophils % 0 % Basophils % 0 % Neutrophils # 11.8 H (1.3-7.7) k/uL Lymphocytes # 0.7 L (1.0-4.8) k/uL Monocytes # 0.1 (0-1.0) k/uL Eosinophils # 0.0 (0-0.7) k/uL Basophils # 0.0 (0-0.2) k/uL Poikilocytosis Slight Anisocytosis Slight PT 10.9 (9.0-12.0) sec INR 1.0 (<1.2) APTT 21.7 L (22.0-30.0) sec Sodium (137-145) mmol/L Potassium (3.5-5.1) mmol/L Chloride (98-107) mmol/L Carbon Dioxide (22-30) mmol/L Anion Gap mmol/L BUN (9-20) mg/dL Creatinine (0.66-1.25) mg/dL Est GFR (CKD-EPI)AfAm (>60 ml/min/1.73 sqM) Est GFR (CKD-EPI)NonAf (>60 ml/min/1.73 sqM) Glucose (74-99) mg/dL Lactic Ac Sepsis Rflx Plasma Lactic Acid Pola (0.7-2.0) mmol/L Calcium (8.4-10.2) mg/dL Magnesium (1.6-2.3) mg/dL Total Bilirubin (0.2-1.3) mg/dL AST (17-59) U/L ALT (4-49) U/L Alkaline Phosphatase (38-126) U/L Troponin I (0.000-0.034) ng/mL Total Protein (6.3-8.2) g/dL Albumin (3.5-5.0) g/dL Urine Color Yellow Urine Appearance Clear (Clear) Urine pH 6.0 (5.0-8.0) Ur Specific Shelly 1.007 (1.001-1.035) Urine Protein Negative (Negative) Urine Glucose (UA) Negative (Negative) Urine Ketones 1+ H (Negative) Urine Blood Negative (Negative) Urine Nitrite Negative (Negative) Urine Bilirubin Negative (Negative) Urine Urobilinogen 4.0 (<2.0) mg/dL Ur Leukocyte Esterase Negative (Negative) 05/12/22 05/12/22 05/12/22 Range/Units 13:28 13:28 13:28 WBC (3.8-10.6) k/uL RBC (4.30-5.90) m/uL Hgb (13.0-17.5) gm/dL Hct (39.0-53.0) % MCV (80.0-100.0) fL MCH (25.0-35.0) pg MCHC (31.0-37.0) g/dL RDW (11.5-15.5) % Plt Count (150-450) k/uL MPV Neutrophils % % Lymphocytes % % Monocytes % % Eosinophils % % Basophils % % Neutrophils # (1.3-7.7) k/uL Lymphocytes # (1.0-4.8) k/uL Monocytes # (0-1.0) k/uL Eosinophils # (0-0.7) k/uL Basophils # (0-0.2) k/uL Poikilocytosis Anisocytosis PT (9.0-12.0) sec INR (<1.2) APTT (22.0-30.0) sec Sodium 136 L (137-145) mmol/L Potassium 4.5 (3.5-5.1) mmol/L Chloride 102 (98-107) mmol/L Carbon Dioxide 23 (22-30) mmol/L Anion Gap 11 mmol/L BUN 26 H (9-20) mg/dL Creatinine 0.73 (0.66-1.25) mg/dL Est GFR (CKD-EPI)AfAm >90 (>60 ml/min/1.73 sqM) Est GFR (CKD-EPI)NonAf >90 (>60 ml/min/1.73 sqM) Glucose 151 H (74-99) mg/dL Lactic Ac Sepsis Rflx Plasma Lactic Acid Pola 3.4 H* (0.7-2.0) mmol/L Calcium 8.7 (8.4-10.2) mg/dL Magnesium 2.0 (1.6-2.3) mg/dL Total Bilirubin 2.8 H (0.2-1.3) mg/dL AST 49 (17-59) U/L ALT 46 (4-49) U/L Alkaline Phosphatase 122 (38-126) U/L Troponin I 0.029 (0.000-0.034) ng/mL Total Protein 6.9 (6.3-8.2) g/dL Albumin 3.6 (3.5-5.0) g/dL Urine Color Urine Appearance (Clear) Urine pH (5.0-8.0) Ur Specific Shelly (1.001-1.035) Urine Protein (Negative) Urine Glucose (UA) (Negative) Urine Ketones (Negative) Urine Blood (Negative) Urine Nitrite (Negative) Urine Bilirubin (Negative) Urine Urobilinogen (<2.0) mg/dL Ur Leukocyte Esterase (Negative) 05/12/22 Range/Units 14:25 WBC (3.8-10.6) k/uL RBC (4.30-5.90) m/uL Hgb (13.0-17.5) gm/dL Hct (39.0-53.0) % MCV (80.0-100.0) fL MCH (25.0-35.0) pg MCHC (31.0-37.0) g/dL RDW (11.5-15.5) % Plt Count (150-450) k/uL MPV Neutrophils % % Lymphocytes % % Monocytes % % Eosinophils % % Basophils % % Neutrophils # (1.3-7.7) k/uL Lymphocytes # (1.0-4.8) k/uL Monocytes # (0-1.0) k/uL Eosinophils # (0-0.7) k/uL Basophils # (0-0.2) k/uL Poikilocytosis Anisocytosis PT (9.0-12.0) sec INR (<1.2) APTT (22.0-30.0) sec Sodium (137-145) mmol/L Potassium (3.5-5.1) mmol/L Chloride (98-107) mmol/L Carbon Dioxide (22-30) mmol/L Anion Gap mmol/L BUN (9-20) mg/dL Creatinine (0.66-1.25) mg/dL Est GFR (CKD-EPI)AfAm (>60 ml/min/1.73 sqM) Est GFR (CKD-EPI)NonAf (>60 ml/min/1.73 sqM) Glucose (74-99) mg/dL Lactic Ac Sepsis Rflx Y Plasma Lactic Acid Pola (0.7-2.0) mmol/L Calcium (8.4-10.2) mg/dL Magnesium (1.6-2.3) mg/dL Total Bilirubin (0.2-1.3) mg/dL AST (17-59) U/L ALT (4-49) U/L Alkaline Phosphatase (38-126) U/L Troponin I (0.000-0.034) ng/mL Total Protein (6.3-8.2) g/dL Albumin (3.5-5.0) g/dL Urine Color Urine Appearance (Clear) Urine pH (5.0-8.0) Ur Specific Shelly (1.001-1.035) Urine Protein (Negative) Urine Glucose (UA) (Negative) Urine Ketones (Negative) Urine Blood (Negative) Urine Nitrite (Negative) Urine Bilirubin (Negative) Urine Urobilinogen (<2.0) mg/dL Ur Leukocyte Esterase (Negative) Disposition Clinical Impression: Dehydration, Orthostatic hypotension, Nausea and vomiting, Diarrhea, Chemotherapy induced nausea and vomiting, Small cell carcinoma of esophagus Disposition: ADMITTED IP TO THIS HOSP Condition: Serious Is patient prescribed a controlled substance at d/c from ED?: No Time of Disposition: 16:05 Decision to Admit Reason: Admit from EC Decision Date: 05/12/22 Decision Time: 16:05
[2022-05-12] MEDS ORDERED: SODIUM CHLORIDE 0.9% 1,000 ML IV STA (13:22)
[2022-05-12 13:48] LABS: Anisocytosis Slight; Basophils % (A) 0 %; Eosinophils % (A) 0 %; HCT 38.2 % (39.0-53.0); HGB 13.1 gm/dL (13.0-17.5); Lymphocytes # (A) 0.7 k/uL (1.0-4.8); Lymphocytes % (A) 6 %; MCH 32.1 pg (25.0-35.0); MCHC 34.3 g/dL (31.0-37.0); MCV 93.6 fL (80.0-100.0); Mean Platelet Volume 8.1; Monocytes # (A) 0.1 k/uL (0-1.0); Monocytes % (A) 1 %; Neutrophils # (A) 11.8 k/uL (1.3-7.7); Neutrophils % (A) 93 %; Platelet Count 292 k/uL (150-450); Poikilocytosis Slight; RBC 4.08 m/uL (4.30-5.90); WBC 12.6 k/uL (3.8-10.6)
--- NOTE | 2022-05-12 14:06 | XR ---
EXAMINATION TYPE: XR chest 2V DATE OF EXAM: 05/12/2022 COMPARISON: 04/17/2022 INDICATION: Syncope weakness TECHNIQUE: Frontal and lateral views of the chest are obtained. FINDINGS: The heart size is normal. The pulmonary vasculature is normal. The lungs are clear. Pacemaker overlies left chest. IMPRESSION: 1. No acute pulmonary process.
[2022-05-12 14:10] LABS: Prothrombin Time 10.9 sec (9.0-12.0)
[2022-05-12 14:23] LABS: Partial Thromboplastin Time 21.7 sec (22.0-30.0)
[2022-05-12 15:11] LABS: ALT 46 U/L (4-49); AST 49 U/L (17-59); African American GFR (CKD) >90 (>60 ml/min/1.73 sqM); Albumin 3.6 g/dL (3.5-5.0); Alkaline Phosphatase 122 U/L (38-126); Anion Gap 11 mmol/L; Blood Urea Nitrogen 26 mg/dL (9-20); Calcium 8.7 mg/dL (8.4-10.2); Carbon Dioxide 23 mmol/L (22-30); Chloride 102 mmol/L (98-107); Glucose 151 mg/dL (74-99); Non-African American GFR(CKD) >90 (>60 ml/min/1.73 sqM); Potassium 4.5 mmol/L (3.5-5.1); Sodium 136 mmol/L (137-145); Total Bilirubin 2.8 mg/dL (0.2-1.3); Total Protein 6.9 g/dL (6.3-8.2)
[2022-05-12] MEDS ORDERED: MORPHINE SULFATE 4 MG/ML SYRINGE IVP STA (15:43)
[2022-05-12] MEDS ORDERED: ONDANSETRON 4 MG/2 ML VIAL IVP STA (15:43)
[2022-05-12] MEDS ORDERED: SODIUM CHLORIDE 0.9% 1,000 ML IV ONE (15:49)
[2022-05-12] MEDS: SODIUM CHLORIDE 0.9% 1,000 ML IV SCH ×2 (15:52→23:25)
[2022-05-12] MEDS ORDERED: NALOXONE 0.4 MG/ML 1 ML VIAL IV PRN (16:13)
[2022-05-12] MEDS ORDERED: MORPHINE SULFATE 4 MG/ML SYRINGE IV PRN ×2 (16:13→18:26)
[2022-05-12] MEDS ORDERED: PROCHLORPERAZINE INJ 10 MG/2 ML VIAL IVP PRN (16:21)
[2022-05-12] MEDS: PANTOPRAZOLE 40 MG/10 ML VIAL IV SCH (17:40)
[2022-05-12] MEDS ORDERED: HYDROcodone/APAP 7.5-325MG 1 EACH TAB PO PRN (17:40)
[2022-05-12] MEDS ORDERED: TRIMETHOBENZAMIDE 100 MG/ML 2 ML VIAL IM PRN (17:43)
[2022-05-12] MEDS: carvediloL 6.25 MG TAB PO SCH (18:14)
--- NOTE | 2022-05-12 18:28 | P.HPIM ---
History of Present Illness H&P Date: 05/12/22 History of Presenting Illness: Mr. 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 Wells with last chemotherapy treatment being 05/08/22. Patient presented to the emergency department today secondary to weakness resulting from intractable nausea, vomiting, and diarrhea 24 hours. Patient reports he has consistently been on the toilet and pretty much unable to eat or drink which has resulted in significant lightheadedness, dizziness, and weakness which has resulted in 2 falls prior to arrival. Patient denies having any injuries from these falls and denies hitting his head. He reports he was just simply too weak to stand anymore. Patient reports since beginning chemotherapy patient has lost well over 20 pounds and upon further chart review patient's documented weight on 04/22/22 with 87 kg and upon arrival to our facility today patient's weight was 68.039 kg which is a documented 18.96 kg or 41.7 pound weight loss in 20 days. Patient is requesting a PEG tube placement during this admission to ensure he is able to have some form of intake prior to continuing on with chemotherapy. He reports his next dose is supposed to be 05/16/22. Patient denies any recent illnesses or known exposure to ill contacts, fevers, chills, hemoptysis, cough or congestion, chest pain, palpitations, shortness of breath, hematemesis, melena, hematochezia, or experiencing any difficulties with urination. He underwent full evaluation in the emergency department. Labs completed and reviewed. CBC completed revealing leukocytosis with WBC count of 12.6. BMP revealing prerenal azotemia with BUN of 26. Liver profile revealing elevated total bili of 2.8 which appears to be chronically elevated dating back as far as 2019. Lactic acid elevated at 3.4. Troponin 0.029. EKG completed revealing a dual paced rhythm at 72 bpm. Chest x- ray completed and personally reviewed, lungs appear clear with pacemaker in place to left anterior chest and no signs of acute cardiopulmonary process. Patient and provided with a 2 L bolus for treatment of lactic acidosis and started on normal saline infusion with 0.9% normal saline at 130 mL's per hour. Patient's history and presenting symptoms along with laboratory analysis, EKG, and imaging findings discussed in detail with the ED physician, Dr. Sanon. Patient is being admitted under our services to general medical unit with consultation to oncology and general surgery. Review of systems: Pertinent positives and negatives as discussed in HPI, a complete review of systems was performed and all other systems are negative. Physical exam: Vital signs reviewed and stable. General: Nontoxic, no distress and appears stated age. Derm: Skin warm, dry with pallor. Head: Atraumatic, normocephalic and symmetric. Eyes: EOMs intact, no lid lag, and anicteric sclera Mouth: no lip lesions, mucus membranes dry Cardiovascular: regular rate and rhythm with normal S1S2, systolic murmur, positive posterior tibial pulses bilaterally, and cap refill < [address] left anterior chest . Lungs: Respirations even, regular, and unlabored on room air. Lungs CTA bilaterally, no rhonchi, no rales, no wheezing, and no accessory muscle usage. Abdominal: soft, nontender to palpation, no guarding, no appreciable organomegaly Ext: ROM intact. No gross muscle atrophy, no edema, no contractures Neuro: Speech clear, face symmetrical and CN II-XII grossly intact with no noted focal neuro deficits Psych: Alert and oriented to person, place, time, and situation. Appropriate and pleasant affect. 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 CBC completed revealing leukocytosis with WBC count of 12.6. BMP revealing prerenal azotemia with BUN of 26. Liver profile revealing elevated total bili of 2.8 which appears to be chronically elevated dating back as far as 2019. Lactic acid elevated at 3.4. Troponin 0.029. -EKG completed revealing a dual paced rhythm at 72 bpm with no noted T-wave or ST abnormalities showing no signs of acute ischemia upon personal review and interpretation.. -Chest x-ray completed and personally reviewed, lungs appear clear with pacemaker in place to left anterior chest and no signs of acute cardiopulmonary process. -Patient was provided with a 2 L bolus for treatment of lactic acidosis and to continue with aggressive IV fluid hydration with 0.9% normal saline at 130 mL's per hour. -Patient's history and presenting symptoms along with laboratory analysis, EKG, and imaging findings discussed in detail with the ED physician, Dr. Sanon. -Patient is being admitted under our services to general medical unit with consultation to oncology and general surgery. -Consult also placed to dietary secondary to concerns of protein calorie malnutrition. -Elevated bilirubin and appears chronic and upon chart review dates back as early as 2019. -Order placed for scheduled Compazine 10 mg IVP every 6 hours and when necessary Tigan 200 mg IM for uncontrolled nausea and vomiting. Patient also started on Marinol 5 mg twice daily with meals. -We will continue to monitor closely and repeat morning CBC, CMP, and magnesium. The patient is admitted with an anticipated greater than 2 midnight stay for evaluation of intractable nausea, vomiting, and diarrhea CODE STATUS: Full code DVT prophylaxis: Lovenox Discussed with: patient, RN, and ED physician Anticipated discharge date: clinical course to determine Anticipated discharge place: Home Patient was seen independently by Nurse Practitioner. This document was prepared using [employer] dictation software. Please allow for errors in industrial [employer] public [employer] teacher while rare they do occur. I reviewed the documentation as provided by the ANNE above, who is the original author of this note. I agree with the documented assessment and plan, with the following changes: none Past Medical History Past Medical History: Cancer, Hypertension Additional Past Medical History / Comment(s): esophageal cancer dx feb1. History of Any Multi-Drug Resistant Organisms: None Reported Past Surgical History: Pacemaker Past Anesthesia/Blood Transfusion Reactions: No Reported Reaction Type of Cardiac Device: Permanent Pacemaker Device Placement Date:: 2020 Past Psychological History: No Psychological Hx Reported Smoking Status: Never smoker Past Alcohol Use History: None Reported Past Drug Use History: None Reported - Past Family History Mother Family Medical History: Hypertension Medications and Allergies Home Medications Medication Instructions Recorded Confirmed Type amLODIPine [Norvasc] 5 mg PO DAILY #30 tab 10/01/19 05/12/22 Rx carvediloL [Coreg] 6.25 mg PO BID 03/21/22 05/12/22 History Pantoprazole Sodium [Protonix] 40 mg PO DAILY #30 tab 03/23/22 05/12/22 Rx HYDROcodone/APAP 7.5-325MG [[place] 1 tab PO Q6HR PRN 03/30/22 05/12/22 History 7.5-325] Morphine Sulfate [Morphine Sulfate 15 mg PO BID 03/30/22 05/12/22 History ER] Ondansetron [Zofran] 4 mg PO Q4HR PRN #45 tab 04/08/22 05/12/22 Rx Acetaminophen Tab [Tylenol] 650 mg PO Q4HR PRN tab 04/09/22 05/12/22 Rx LORazepam [Ativan] 0.5 mg PO Q6H PRN 04/17/22 05/12/22 History Lidocaine Viscous 2% [Xylocaine 30 ml PO TID PRN 05/12/22 05/12/22 History Viscous] Prochlorperazine [Compazine] 10 mg PO Q6H PRN 05/12/22 05/12/22 History chlorproMAZINE [Thorazine] 10 mg PO Q6H PRN 05/12/22 05/12/22 History Allergies Allergy/AdvReac Type Severity Reaction Status Date / Time No Known Allergies Allergy Verified 05/12/22 16:09 Physical Exam Osteopathic Statement: *. No significant issues noted on an osteopathic structural exam other than those noted in the History and Physical/Consult. Vitals: Vital Signs Temp Pulse Pulse Resp BP BP BP 05/12/22 15:30 86 111/87 05/12/22 15:25 67 16 111/70 05/12/22 15:15 88 155/89 05/12/22 13:44 83 18 150/87 05/12/22 12:41 98.4 F 99 18 113/75 Pulse Ox 05/12/22 15:30 05/12/22 15:25 96 05/12/22 15:15 05/12/22 13:44 98 05/12/22 12:41 98 Intake and Output 05/12/22 05/12/22 05/12/22 06:59 14:59 22:59 Other: Weight 68.039 kg Results CBC & Chem 7: 05/12/22 13:28 05/12/22 13:28 Labs: Abnormal Lab Results - Last 24 Hours (Table) 05/12/22 05/12/22 05/12/22 Range/Units 13:28 13:28 13:28 WBC 12.6 H (3.8-10.6) k/uL RBC 4.08 L (4.30-5.90) m/uL Hct 38.2 L (39.0-53.0) % RDW 17.0 H (11.5-15.5) % Neutrophils # 11.8 H (1.3-7.7) k/uL Lymphocytes # 0.7 L (1.0-4.8) k/uL APTT 21.7 L (22.0-30.0) sec Sodium 136 L (137-145) mmol/L BUN 26 H (9-20) mg/dL Glucose 151 H (74-99) mg/dL Plasma Lactic Acid Pola (0.7-2.0) mmol/L Total Bilirubin 2.8 H (0.2-1.3) mg/dL 05/12/22 Range/Units 13:28 WBC (3.8-10.6) k/uL RBC (4.30-5.90) m/uL Hct (39.0-53.0) % RDW (11.5-15.5) % Neutrophils # (1.3-7.7) k/uL Lymphocytes # (1.0-4.8) k/uL APTT (22.0-30.0) sec Sodium (137-145) mmol/L BUN (9-20) mg/dL Glucose (74-99) mg/dL Plasma Lactic Acid Pola 3.4 H* (0.7-2.0) mmol/L Total Bilirubin (0.2-1.3) mg/dL
[2022-05-12] MEDS: PROCHLORPERAZINE INJ 10 MG/2 ML VIAL IVP SCH ×2 (18:52→23:24)
[2022-05-12] MEDS: MORPHINE SULFATE ER 15 MG TABLET PO SCH (20:08)
[2022-05-13 03:07] LABS: Appearance,Urine Clear (Clear); Bilirubin,Urine Negative (Negative); Blood,Urine Negative (Negative); Color,Urine Yellow; Glucose,Urine (UA) Negative (Negative); Ketones,Urine 1+ (Negative); Leukocyte Esterase,Urine Negative (Negative); Nitrite,Urine Negative (Negative); Protein,Urine Negative (Negative); Specific Gravity,Urine 1.007 (1.001-1.035)
[2022-05-13] MEDS: PROCHLORPERAZINE INJ 10 MG/2 ML VIAL IVP SCH ×3 (05:50→17:22)
[2022-05-13] MEDS: SODIUM CHLORIDE 0.9% 1,000 ML IV SCH ×3 (05:51→20:38)
[2022-05-13] MEDS: PANTOPRAZOLE 40 MG/10 ML VIAL IV SCH (08:54)
[2022-05-13] MEDS: amLODIPine 5 MG TAB PO SCH (08:54)
[2022-05-13] MEDS: MORPHINE SULFATE ER 15 MG TABLET PO SCH ×2 (08:54→20:37)
[2022-05-13] MEDS: ENOXAPARIN 40 MG/0.4 ML SYRINGE SQ SCH (08:55)
[2022-05-13] MEDS: carvediloL 6.25 MG TAB PO SCH ×2 (08:55→17:22)
[2022-05-13 09:33] LABS: African American GFR (CKD) 110.6 (60.0-200.0); Albumin 3.3 g/dL (3.8-4.9); Albumin/Globulin Ratio 1.33 (1.60-3.17); Anion Gap 10.7 mmol/L (10.00-18.00); BUN/Creat Ratio 24.16 Ratio (12.00-20.00); Blood Urea Nitrogen 17.3 mg/dL (9.0-27.0); Calcium 8.4 mg/dL (8.7-10.3); Carbon Dioxide 23.4 mmol/L (20.0-27.5); Globulin 2.5 g/dL (1.6-3.3); Non-African American GFR(CKD) 95.4 (60.0-200.0); Potassium 4.2 mmol/L (3.5-5.5); Total Bilirubin 1.5 mg/dL (0.30-1.20); Total Protein 5.9 g/dL (6.2-8.2)
--- NOTE | 2022-05-13 10:27 | CT ---
EXAMINATION TYPE: CT ChestAbdPelvis w con DATE OF EXAM: 05/13/2022 COMPARISON: CT abdomen April 18, 2022. CTA chest March 21, 2022 HISTORY: esophageal ca CT DLP: 1052.6 mGycm. Automated Exposure Control for Dose Reduction was Utilized. CONTRAST: CT scan of the thorax, abdomen and pelvis is performed without oral and with IV Contrast, patient inj ected with 100 mL of Isovue 300. FINDINGS: LUNGS: The lungs are grossly clear, there is no concerning parenchymal mass or nodule identified. T here is no pleural effusion or pneumothorax seen. The tracheobronchial tree is patent. MEDIASTINUM: There are no new greater than 1 cm hilar or mediastinal lymph nodes. No cardiomegaly w ere pericardial effusion is seen. Dual-lead pacemaker is redemonstrated. Coronary artery calcificati on and/or stents are again seen. Persistent moderate to severe wall thickening of the esophagus begin hebert subcarinal level extending distally to just above the diaphragm. Some prominent but subcentimete r lymph nodes subcarinal region proximal esophagus level are redemonstrated axial images 27, 30, and 34 for reference LIVER/GB: There are two adjacent dependent calcified gallstones in the gallbladder redemonstrated. Li carol remains overall heterogeneously hypodense in appearance. No definitive greater than 1 cm focal ma sses are seen on background heterogeneity but some areas are suspicious with faint hypodense areas re demonstrated, for reference 1.2 cm posterior right hepatic lobe series 6 image 17 delayed imaging and possible vague 1.5 cm slightly hypodense rounded area left hepatic lobe axial image 8 series 6. PANCREAS: No significant abnormality is seen. SPLEEN: No significant abnormality is seen. ADRENALS: No significant abnormality is seen. KIDNEYS: No significant abnormality is seen. BOWEL: Moderate to severe concentric wall thickening in the distal esophagus corresponding to known neoplasm. Incidental 2.2 cm duodenal diverticulum coronal image 45. No suspicious small or large uzair l dilatation. Moderate to severe rectal fecal stasis on current study. LYMPH NODES: There is abnormal adenopathy in the upper abdomen just below the diaphragm and above th e pancreatic head. There is confluent soft tissue mass or adenopathy on current study measuring 6.1 x 4.0 cm axial image 25 appears slightly morelos and more bulky versus prior exam encasing portion of c eliac branch vessels. No abnormal greater than 1 cm pelvic adenopathy. OSSEOUS STRUCTURES: Bridging osteophytes in the thoracic spine are seen. Focal disc herniation L4-L5 and L5-S1 level sagittal image 65. OTHER: None IMPRESSION: Redemonstration of known distal esophageal neoplasm. There is abnormal adenopathy in the upper abdominal retroperitoneum just below the diaphragm. There is heterogeneity of liver making eval uation suboptimal. Subtle poorly defined hypodense metastatic disease is still suspected. Advise PET CT and/or contrast enhanced ultrasound evaluation to confirm or exclude suspected subtle metastatic d isease to the liver. No distal metastatic disease in the pelvis.
[2022-05-13 11:24] LABS: Basophils # (A) 0.03 X 10*3/uL (0.00-0.10); Basophils % (A) 0.6 %; Eosinophils # (A) 0.04 X 10*3/uL (0.04-0.35); Eosinophils % (A) 0.8 %; HCT 29.4 % (39.6-50.0); HGB 9.5 g/dL (13.0-17.0); Immature Grans, Automated 1.9 %; Lymphocytes # (A) 0.88 X 10*3/uL (0.90-5.00); Lymphocytes % (A) 16.8 %; MCH 31.4 pg (27.0-32.0); MCHC 32.3 g/dL (32.0-37.0); Mean Platelet Volume 10.6 fL (9.5-12.2); Monocytes # (A) 0.04 X 10*3/uL (0.20-1.00); Monocytes % (A) 0.8 %; NRBC Per 100 WBC 0 /100 WBCS (0.0-0.0); Neutrophils # (A) 4.15 X 10*3/uL (1.80-7.70); Neutrophils % (A) 79.1 %; Platelet Count 128 X 10*3/uL (140-440); RBC 3.03 X 10*6/uL (4.40-5.60); RDW 17.2 % (11.5-14.5); WBC 5.24 X 10*3/uL (4.50-10.00)
--- NOTE | 2022-05-13 13:02 | P.GSCN ---
History of Present Illness Consult date: 05/13/22 History of present illness: CHIEF COMPLAINT: Failure to thrive HISTORY OF PRESENT ILLNESS: This is a 71-year-old male with a known history of stage IV esophageal cancer with possible liver metastases. He is currently undergoing chemotherapy. Last treatment was on 05/08/2022. Patient came into the ER with nausea vomiting and diarrhea. He has been unable to eat and drink. He has had a 40 pound weight loss over the last month. Patient reports poor appetite poor oral intake. He denies any difficulty swallowing. He denies abdominal pain. PAST MEDICAL HISTORY: See list. PAST SURGICAL HISTORY: See list. MEDICATIONS: See list. ALLERGIES: See list. SOCIAL HISTORY: No illicit drug use. REVIEW OF SYSTEMS: CONSTITUTIONAL: Denies fever or chills. HEENT: Denies blurred vision, vision changes, or eye pain. Denies hemoptysis ENDOCRINE: Denies heat or cold intolerance. CARDIOVASCULAR: Denies chest pain or pressure. RESPIRATORY: No shortness of breath. GASTROINTESTINAL: Denies abdominal pain. Denies nausea or vomiting. NEURO: Denies history of seizures. PSYCH: No depression or suicidal ideation HEMATOLOGIC: Denies bleeding disorders. LYMPHATIC: The patient denies any lumps and bumps around the neck. GENITOURINARY: Denies any blood in urine or increased urinary frequency. MUSCULOSKELETAL: Denies myalgias. Denies joint swelling. Denies decreased range of motion beyond patients baseline. SKIN: Denies pruitis. Denies rash. PHYSICAL EXAM: VITAL SIGNS: Reviewed GENERAL: Well-developed in no acute distress. HEENT: No sclera icterus. Extraocular movements grossly intact. Moist buccal mucosa. Head is atraumatic, normocephalic. Hears conversational speech. No nasal drainage. NECK: Supple without lymphadenopathy. CHEST: Non-labored respirations and equal bilateral excursions. CARDIOVASCULAR: Palpable 2+ radial pulses. ABDOMEN: Soft. Nondistended. Nontender MUSCULOSKELETAL: No clubbing or cyanosis. NEUROLOGIC: No focal or lateralizing signs. Cranial nerves II through XII grossly intact. PSYCH: Appropriate affect. Alert and oriented to person, place and time. SKIN: Well perfused. Good skin turgor. LABORATORY DATA: WBC 12.6 down to 5.24 Hgb 9.5 plt 128 Sodium 138 potassium 4.2 creatinine 0.7 Lactic acid 3.4 down to 1.6 Total bilirubin 1.5 Albumin 3.3 IMAGING: Computed tomography scan abdomen and pelvis redemonstration of known distal esophageal neoplasm. There is abnormal adenopathy in the upper abdominal r etroperitoneum just below the diaphragm. There is heterogeneity of the liver making evaluation suboptimal. Subtle poorly defined hypodense metastatic disease still suspected. No metastatic disease to the pelvis. ASSESSMENT: 1. Small cell neuroendocrine esophageal carcinoma 2. Intractable nausea vomiting and diarrhea likely chemotherapy-induced 3. Failure to thrive 4. Lactic acidosis likely related to dehydration. Improved with IV fluids. 5. History of pacemaker PLAN: -Upper GI ordered for further evaluation of patient's esophageal cancer with nausea and vomiting -Patient is scheduled for PEG tube placement during this admission -Continue supportive care -Continue IV fluids -Continue antiemetics Thank you for this consultation Physician Machine Coremaker note has been reviewed by physician. Signing provider agrees with the documented findings, assessment, and plan of care. Past Medical History Past Medical History: Cancer, Hypertension Additional Past Medical History / Comment(s): esophageal cancer dx feb1. History of Any Multi-Drug Resistant Organisms: None Reported Past Surgical History: Pacemaker Past Anesthesia/Blood Transfusion Reactions: No Reported Reaction Type of Cardiac Device: Permanent Pacemaker Device Placement Date:: 2020 Past Psychological History: No Psychological Hx Reported Smoking Status: Never smoker Past Alcohol Use History: None Reported Past Drug Use History: None Reported - Past Family History Mother Family Medical History: Hypertension Medications and Allergies Home Medications Medication Instructions Recorded Confirmed Type amLODIPine [Norvasc] 5 mg PO DAILY #30 tab 10/01/19 05/12/22 Rx carvediloL [Coreg] 6.25 mg PO BID 03/21/22 05/12/22 History Pantoprazole Sodium [Protonix] 40 mg PO DAILY #30 tab 03/23/22 05/12/22 Rx HYDROcodone/APAP 7.5-325MG [[place] 1 tab PO Q6HR PRN 03/30/22 05/12/22 History 7.5-325] Morphine Sulfate [Morphine Sulfate 15 mg PO BID 03/30/22 05/12/22 History ER] Ondansetron [Zofran] 4 mg PO Q4HR PRN #45 tab 04/08/22 05/12/22 Rx Acetaminophen Tab [Tylenol] 650 mg PO Q4HR PRN tab 04/09/22 05/12/22 Rx LORazepam [Ativan] 0.5 mg PO Q6H PRN 04/17/22 05/12/22 History Lidocaine Viscous 2% [Xylocaine 30 ml PO TID PRN 05/12/22 05/12/22 History Viscous] Prochlorperazine [Compazine] 10 mg PO Q6H PRN 05/12/22 05/12/22 History chlorproMAZINE [Thorazine] 10 mg PO Q6H PRN 05/12/22 05/12/22 History Allergies Allergy/AdvReac Type Severity Reaction Status Date / Time No Known Allergies Allergy Verified 05/12/22 16:09 Surgical - Exam Vital Signs Temp Pulse Resp BP Pulse Ox 98.4 F 99 18 113/75 98 05/12/22 12:41 05/12/22 12:41 05/12/22 12:41 05/12/22 12:41 05/12/22 12:41 Results - Labs 05/13/22 06:20 05/13/22 06:20 Abnormal Lab Results - Last 24 Hours (Table) 05/12/22 05/12/22 05/12/22 Range/Units 02:32 13:28 13:28 WBC 12.6 H (3.8-10.6) k/uL RBC 4.08 L (4.30-5.90) m/uL Hct 38.2 L (39.0-53.0) % RDW 17.0 H (11.5-15.5) % Neutrophils # 11.8 H (1.3-7.7) k/uL Lymphocytes # 0.7 L (1.0-4.8) k/uL APTT 21.7 L (22.0-30.0) sec Sodium (137-145) mmol/L BUN (9-20) mg/dL BUN/Creatinine Ratio (12.00-20.00) Ratio Glucose (74-99) mg/dL Plasma Lactic Acid Pola (0.7-2.0) mmol/L Calcium (8.7-10.3) mg/dL Total Bilirubin (0.2-1.3) mg/dL Total Protein (6.2-8.2) g/dL Albumin (3.8-4.9) g/dL Albumin/Globulin Ratio (1.60-3.17) g/dL Urine Ketones 1+ H (Negative) 05/12/22 05/12/22 05/13/22 Range/Units 13:28 13:28 06:20 WBC (3.8-10.6) k/uL RBC (4.30-5.90) m/uL Hct (39.0-53.0) % RDW (11.5-15.5) % Neutrophils # (1.3-7.7) k/uL Lymphocytes # (1.0-4.8) k/uL APTT (22.0-30.0) sec Sodium 136 L (137-145) mmol/L BUN 26 H (9-20) mg/dL BUN/Creatinine Ratio 24.16 H (12.00-20.00) Ratio Glucose 151 H 112 H (74-99) mg/dL Plasma Lactic Acid Pola 3.4 H* (0.7-2.0) mmol/L Calcium 8.4 L (8.7-10.3) mg/dL Total Bilirubin 2.8 H 1.50 H (0.2-1.3) mg/dL Total Protein 5.9 L (6.2-8.2) g/dL Albumin 3.3 L (3.8-4.9) g/dL Albumin/Globulin Ratio 1.33 L (1.60-3.17) g/dL Urine Ketones (Negative) Diabetes panel 05/12/22 05/13/22 Range/Units 13:28 06:20 Sodium 136 L 138 (137-145) mmol/L Potassium 4.5 4.2 (3.5-5.1) mmol/L Chloride 102 104 (98-107) mmol/L Carbon Dioxide 23 23.4 (22-30) mmol/L BUN 26 H 17.3 (9-20) mg/dL Creatinine 0.73 0.7 (0.66-1.25) mg/dL Glucose 151 H 112 H (74-99) mg/dL Calcium 8.7 8.4 L (8.4-10.2) mg/dL AST 49 32 (17-59) U/L ALT 46 34 (4-49) U/L Alkaline Phosphatase 122 101 (38-126) U/L Total Protein 6.9 5.9 L (6.3-8.2) g/dL Albumin 3.6 3.3 L (3.5-5.0) g/dL Calcium panel 05/12/22 05/13/22 Range/Units 13: 06:20 Calcium 8.7 8.4 L (8.4-10.2) mg/dL Albumin 3.6 3.3 L (3.5-5.0) g/dL Pituitary panel 05/12/22 05/13/22 Range/Units 13: 06:20 Sodium 136 L 138 (137-145) mmol/L Potassium 4.5 4.2 (3.5-5.1) mmol/L Chloride 102 104 (98-107) mmol/L Carbon Dioxide 23 23.4 (22-30) mmol/L BUN 26 H 17.3 (9-20) mg/dL Creatinine 0.73 0.7 (0.66-1.25) mg/dL Glucose 151 H 112 H (74-99) mg/dL Calcium 8.7 8.4 L (8.4-10.2) mg/dL Adrenal panel 05/12/22 05/13/22 Range/Units 13: 06:20 Sodium 136 L 138 (137-145) mmol/L Potassium 4.5 4.2 (3.5-5.1) mmol/L Chloride 102 104 (98-107) mmol/L Carbon Dioxide 23 23.4 (22-30) mmol/L BUN 26 H 17.3 (9-20) mg/dL Creatinine 0.73 0.7 (0.66-1.25) mg/dL Glucose 151 H 112 H (74-99) mg/dL Calcium 8.7 8.4 L (8.4-10.2) mg/dL Total Bilirubin 2.8 H 1.50 H (0.2-1.3) mg/dL AST 49 32 (17-59) U/L ALT 46 34 (4-49) U/L Alkaline Phosphatase 122 101 (38-126) U/L Total Protein 6.9 5.9 L (6.3-8.2) g/dL Albumin 3.6 3.3 L (3.5-5.0) g/dL
[2022-05-13] MEDS: LOPERAMIDE 2 MG CAP PO SCH ×4 (13:41→23:38)
--- NOTE | 2022-05-13 14:07 | P.PN ---
Subjective Progress Note Date: 05/13/22 Hospital course: Mr. 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 Wells with last chemotherapy treatment being 05/08/22. Patient presented to the emergency department today secondary to weakness resulting from intractable nausea, vomiting, and diarrhea 24 hours. Patient reports he has consistently been on the toilet and pretty much unable to eat or drink which has resulted in significant lightheadedness, dizziness, and weakness which has resulted in 2 falls prior to arrival. Patient denies having any injuries from these falls and denies hitting his head. He reports he was just simply too weak to stand anymore. Patient reports since beginning chemotherapy patient has lost well over 20 pounds and upon further chart review patient's documented weight on 04/22/22 with 87 kg and upon arrival to our facility today patient's weight was 68.039 kg which is a documented 18.96 kg or 41.7 pound weight loss in 20 days. Patient is requesting a PEG tube placement during this admission to ensure he is able to have some form of intake prior to continuing on with chemotherapy. He reports his next dose is supposed to be 05/16/22. Patient denies any recent illnesses or known exposure to ill contacts, fevers, chills, hemoptysis, cough or congestion, chest pain, palpitations, shortness of breath, hematemesis, melena, hematochezia, or exper iencing any difficulties with urination. He underwent full evaluation in the emergency department. Labs completed and reviewed. CBC completed revealing leukocytosis with WBC count of 12.6. BMP revealing prerenal azotemia with BUN of 26. Liver profile revealing elevated total bili of 2.8 which appears to be chronically elevated dating back as far as 2019. Lactic acid elevated at 3.4. Troponin 0.029. EKG completed revealing a dual paced rhythm at 72 bpm. Chest x- ray completed and personally reviewed, lungs appear clear with pacemaker in place to left anterior chest and no signs of acute cardiopulmonary process. Patient and provided with a 2 L bolus for treatment of lactic acidosis and started on normal saline infusion with 0.9% normal saline at 130 mL's per hour. Patient's history and presenting symptoms along with laboratory analysis, EKG, and imaging findings discussed in detail with the ED physician, Dr. Sanon. Patient is being admitted under our services to general medical unit with consultation to oncology and general surgery. Physical exam: Patient seen and fully evaluated at bedside this morning. Patient reports he is still having persistent diarrhea of liquid stool but states nausea and vomiting has been controlled with scheduled Compazine. Patient reports he was even able to eat a little of his breakfast this morning. Patient states pain is controlled with current pain medication regimen. Vital signs reviewed and stable. General: Nontoxic, no distress and appears stated age. Derm: Skin warm, dry with pallor. Head: Atraumatic, normocephalic and symmetric. Eyes: EOMs intact, no lid lag, and anicteric sclera Mouth: no lip lesions, mucus membranes dry Cardiovascular: regular rate and rhythm with normal S1S2, systolic murmur, positive posterior tibial pulses bilaterally, and cap refill < 2 seconds[address] in [address] left anterior chest . Lungs: Respirations even, regular, and unlabored on room air. Lungs CTA bilaterally, no rhonchi, no rales, no wheezing, and no accessory muscle usage. Abdominal: soft, nontender to palpation, no guarding, no appreciable organomegaly Ext: ROM intact. No gross muscle atrophy, no edema, no contractures Neuro: Speech clear, face symmetrical and CN II-XII grossly intact with no noted focal neuro deficits Psych: Alert and oriented to person, place, time, and situation. Appropriate and pleasant affect. 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 CBC revealing WBC count of 5.24, hemoglobin of 9.5, and platelet count of 128. Lactic acidosis resolved with repeat lactate of 1.6 status post IV fluid bolus. Clostridium difficile negative. BUN revealing resolution of prerenal azotemia with BUN of 17.3 this morning. -We will continue with IV fluid hydration with 0.9% normal saline at 130 mL per hour for an additional 24 hours as patient reports continued persistent diarrhea but states significant improvement in nausea and vomiting. -Patient's history and presenting symptoms along with laboratory analysis, EKG, and imaging findings discussed in detail with the ED physician, Dr. Sanon. -Oncology following, recommending starting patient on Imodium 2 mg every 4 hours. -Gen. surgery following and discussed plan of care with general surgery PA. General surgery PA reporting upper endoscopy has been ordered and then patient will be scheduled for PEG tube placement. -Elevated bilirubin appears chronic and upon chart review dating back as early as 2019, however elevated total bili has improved from previous 2.8 down to 1.5 this morning. -Patient has had success with control of nausea and vomiting with use of scheduled Compazine 10 mg IVP 24 hours. Patient was started on Marinol 5 mg twice daily and to continue with as needed Zofran for breakthrough nausea and vomiting. -We will continue to monitor closely and repeat morning CBC, CMP, and magnesium. CODE STATUS: Full code DVT prophylaxis: Lovenox Discussed with: patient, RN, and general surgery PA Anticipated discharge date: clinical course to determine Anticipated discharge place: Home Patient was seen independently by Nurse Practitioner. This document was prepared using [employer] dictation software. Please allow for errors in machinist linotype while rare they do occur. I reviewed the documentation as provided by the ANNE above, who is the original author of this note. I agree with the documented assessment and plan, with the following changes: none Objective - Vital Signs Vital signs: Vital Signs Temp 98.3 F 05/13/22 02:36 Pulse 72 05/13/22 02:36 Resp 18 05/13/22 02:36 BP 138/84 05/13/22 02:36 Pulse Ox 98 05/13/22 02:36 FiO2 Intake & Output 05/12/22 05/13/22 05/13/22 18:59 06:59 18:59 Weight 68.039 kg Other: Voiding Method Bedside Commode Urinal # Voids 1 2 # Bowel Movements 4 - Labs CBC & Chem 7: 05/19/22 10:15 05/19/22 10:15 Labs: Abnormal Lab Results - Last 24 Hours (Table) 05/12/22 05/12/22 05/12/22 Range/Units 02:32 13:28 13:28 WBC 12.6 H (3.8-10.6) k/uL RBC 4.08 L (4.30-5.90) m/uL Hct 38.2 L (39.0-53.0) % RDW 17.0 H (11.5-15.5) % Neutrophils # 11.8 H (1.3-7.7) k/uL Lymphocytes # 0.7 L (1.0-4.8) k/uL APTT 21.7 L (22.0-30.0) sec Sodium (137-145) mmol/L BUN (9-20) mg/dL Glucose (74-99) mg/dL Plasma Lactic Acid Ploa (0.7-2.0) mmol/L Total Bilirubin (0.2-1.3) mg/dL Urine Ketones 1+ H (Negative) 05/12/22 05/12/22 Range/Units 13:28 13:28 WBC (3.8-10.6) k/uL RBC (4.30-5.90) m/uL Hct (39.0-53.0) % RDW (11.5-15.5) % Neutrophils # (1.3-7.7) k/uL Lymphocytes # (1.0-4.8) k/uL APTT (22.0-30.0) sec Sodium 136 L (137-145) mmol/L BUN 26 H (9-20) mg/dL Glucose 151 H (74-99) mg/dL Plasma Lactic Acid Pola 3.4 H* (0.7-2.0) mmol/L Total Bilirubin 2.8 H (0.2-1.3) mg/dL Urine Ketones (Negative)
[2022-05-13] MEDS: MORPHINE SULFATE IR 15 MG TABLET PO PRN (17:21)
--- NOTE | 2022-05-13 18:08 | P.CONS ---
History of Present Illness - Reason for Consult Consult date: 05/13/22 hx esophageal cancer Requesting physician: Elise Sanon - Chief Complaint n/v/d, dizziness - History of Present Illness Patient is a 71-year-old gentleman with a past medical history significant for extensive stage small cell carcinoma of the esophagus with metastases to the liver, peribronchial lymph node, and celiac lymph node status post cycle 2 carboplatin and etoposide finishing on 05/08/22. He preseneted to the ER for n/v/d, dizziness and falls. Pt reports he fell 3 times and doesn't remember falling. Pt reports that he was experiencing n/v/d despite taking home medications, as well as decreased appetite. Patient has lost approx 40-50lbs since 01/08. Pt also reporting intermittent abdominal pain and low back pain. Labs upon presentation, WBC 12.6, hgb 13.1, and platelets 292,000. Lactic acid 3.4 CXR showed no acute infectious process. Review of Systems 10 point ROS is negative except as stated in HPI Past Medical History Past Medical History: Cancer, Hypertension Additional Past Medical History / Comment(s): esophageal cancer dx fe. History of Any Multi-Drug Resistant Organisms: None Reported Past Surgical History: Pacemaker Past Anesthesia/Blood Transfusion Reactions: No Reported Reaction Type of Cardiac Device: Permanent Pacemaker Device Placement Date:: 2020 Past Psychological History: No Psychological Hx Reported Smoking Status: Never smoker Past Alcohol Use History: None Reported Past Drug Use History: None Reported - Past Family History Mother Family Medical History: Hypertension Medications and Allergies Home Medications Medication Instructions Recorded Confirmed Type amLODIPine [Norvasc] 5 mg PO DAILY #30 tab 10/01/19 05/12/22 Rx carvediloL [Coreg] 6.25 mg PO BID 03/21/22 05/12/22 History Pantoprazole Sodium [Protonix] 40 mg PO DAILY #30 tab 03/23/22 05/12/22 Rx HYDROcodone/APAP 7.5-325MG [Palisade 1 tab PO Q6HR PRN 03/30/22 05/12/22 History 7.5-325] Morphine Sulfate [Morphine Sulfate 15 mg PO BID 03/30/22 05/12/22 History ER] Ondansetron [Zofran] 4 mg PO Q4HR PRN #45 tab 04/08/22 05/12/22 Rx Acetaminophen Tab [Tylenol] 650 mg PO Q4HR PRN tab 04/09/22 05/12/22 Rx LORazepam [Ativan] 0.5 mg PO Q6H PRN 04/17/22 05/12/22 History Lidocaine Viscous 2% [Xylocaine 30 ml PO TID PRN 05/12/22 05/12/22 History Viscous] Prochlorperazine [Compazine] 10 mg PO Q6H PRN 05/12/22 05/12/22 History chlorproMAZINE [Thorazine] 10 mg PO Q6H PRN 05/12/22 05/12/22 History Allergies Allergy/AdvReac Type Severity Reaction Status Date / Time No Known Allergies Allergy Verified 05/12/22 16:09 Physical Exam Vitals: Vital Signs Temp Pulse Pulse Pulse Resp BP BP 05/13/22 11:28 97.8 F 56 L 16 05/13/22 07:12 98.4 F 69 16 05/13/22 02:36 98.3 F 72 18 05/12/22 20:12 98 F 67 16 05/12/22 17:43 98.6 F 64 16 05/12/22 15:30 86 111/87 05/12/22 15:25 67 16 111/70 05/12/22 15:15 88 05/12/22 13:44 83 18 150/87 BP Pulse Ox 05/13/22 11:28 121/71 90 L 05/13/22 07:12 150/76 98 05/13/22 02:36 138/84 98 05/12/22 20:12 144/70 98 05/12/22 17:43 151/73 97 05/12/22 15:30 05/12/22 15:25 96 05/12/22 15:15 155/89 05/12/22 13:44 98 Intake and Output 05/12/22 05/13/22 05/13/22 22:59 06:59 14:59 Other: Voiding Method Bedside Commode Bedside Commode Urinal Urinal # Voids 1 2 # Bowel Movements 4 Weight 68.039 kg - Constitutional General appearance: average body habitus, no acute distress - EENT Eyes: anicteric sclerae ENT: hearing grossly normal - Respiratory Respiratory: bilateral: CTA - Cardiovascular Rhythm: regular Heart sounds: normal: S1, S2 Abnormal Heart Sounds: no systolic murmur, no diastolic murmur, no rub, no S3 Gallop, no S4 Gallop, no click, no other - Gastrointestinal General gastrointestinal: soft, no tenderness - Integumentary Integumentary: normal - Neurologic grossly intact - Musculoskeletal Musculoskeletal: generalized weakness - Psychiatric Psychiatric: A&O x's 3, appropriate affect, intact judgment & insight Results CBC & Chem 7: 05/13/22 06:20 05/13/22 06:20 Labs: Abnormal Lab Results - Last 24 Hours (Table) 05/12/22 05/12/22 05/12/22 Range/Units 02:32 13:28 13:28 WBC 12.6 H (3.8-10.6) k/uL RBC 4.08 L (4.30-5.90) m/uL Hgb (13.0-17.0) g/dL Hct 38.2 L (39.0-53.0) % RDW 17.0 H (11.5-15.5) % Plt Count (140-440) X 10*3/uL Plt Count Comment Immature Gran # (0.00-0.04) X 10*3/uL Neutrophils # 11.8 H (1.3-7.7) k/uL Lymphocytes # 0.7 L (1.0-4.8) k/uL Monocytes # (0.20-1.00) X 10*3/uL APTT 21.7 L (22.0-30.0) sec Sodium (137-145) mmol/L BUN (9-20) mg/dL BUN/Creatinine Ratio (12.00-20.00) Ratio Glucose (74-99) mg/dL Plasma Lactic Acid Pola (0.7-2.0) mmol/L Calcium (8.7-10.3) mg/dL Total Bilirubin (0.2-1.3) mg/dL Total Protein (6.2-8.2) g/dL Albumin (3.8-4.9) g/dL Albumin/Globulin Ratio (1.60-3.17) g/dL Urine Ketones 1+ H (Negative) 05/12/22 05/12/22 05/13/22 Range/Units 13:28 13:28 06:20 WBC (3.8-10.6) k/uL RBC 3.03 L (4.30-5.90) m/uL Hgb 9.5 L (13.0-17.0) g/dL Hct 29.4 L (39.0-53.0) % RDW 17.2 H (11.5-15.5) % Plt Count 128 L (140-440) X 10*3/uL Plt Count Comment DECREASED A Immature Gran # 0.10 H (0.00-0.04) X 10*3/uL Neutrophils # (1.3-7.7) k/uL Lymphocytes # 0.88 L (1.0-4.8) k/uL Monocytes # 0.04 L (0.20-1.00) X 10*3/uL APTT (22.0-30.0) sec Sodium 136 L (137-145) mmol/L BUN 26 H (9-20) mg/dL BUN/Creatinine Ratio (12.00-20.00) Ratio Glucose 151 H (74-99) mg/dL Plasma Lactic Acid Pola 3.4 H* (0.7-2.0) mmol/L Calcium (8.7-10.3) mg/dL Total Bilirubin 2.8 H (0.2-1.3) mg/dL Total Protein (6.2-8.2) g/dL Albumin (3.8-4.9) g/dL Albumin/Globulin Ratio (1.60-3.17) g/dL Urine Ketones (Negative) 05/13/22 Range/Units 06:20 WBC (3.8-10.6) k/uL RBC (4.30-5.90) m/uL Hgb (13.0-17.0) g/dL Hct (39.0-53.0) % RDW (11.5-15.5) % Plt Count (140-440) X 10*3/uL Plt Count Comment Immature Gran # (0.00-0.04) X 10*3/uL Neutrophils # (1.3-7.7) k/uL Lymphocytes # (1.0-4.8) k/uL Monocytes # (0.20-1.00) X 10*3/uL APTT (22.0-30.0) sec Sodium (137-145) mmol/L BUN (9-20) mg/dL BUN/Creatinine Ratio 24.16 H (12.00-20.00) Ratio Glucose 112 H (74-99) mg/dL Plasma Lactic Acid Pola (0.7-2.0) mmol/L Calcium 8.4 L (8.7-10.3) mg/dL Total Bilirubin 1.50 H (0.2-1.3) mg/dL Total Protein 5.9 L (6.2-8.2) g/dL Albumin 3.3 L (3.8-4.9) g/dL Albumin/Globulin Ratio 1.33 L (1.60-3.17) g/dL Urine Ketones (Negative) Chest x-ray: report reviewed Assessment and Plan (1) Diarrhea Current Visit: Yes Status: Acute Code(s): R19.7 - DIARRHEA, UNSPECIFIED SNOMED Code(s): 70635327 (2) Small cell carcinoma of esophagus Current Visit: Yes Status: Acute Priority: Medium Code(s): C15.9 - MALIGNANT NEOPLASM OF ESOPHAGUS, UNSPECIFIED SNOMED Code(s): 395759422 Plan: N/V/D: -Pt reports symptoms were progressing at home, despite taking home medications for nausea, and was unable to tolerate oral intake, causing dizziness and falls. -Pt reports since admission n/v has subsided with IV compazine. Pt also receiving IV hydration. Will continue with compazine and hydration. Encouraged oral intake as tolerated -Imodium added for diarrhea -General surgery consulted for evaluation for peg tube, as pt continues to lose weight and has poor oral intake at home. Pond Scaler also consulted -Will transition pt to oral pain medications and titrate to effective dose for pain control -Will add zyrexa to next chemo cycle for chemo-induced n/v. Medication sent to patient's pharmacy. Esophageal cancer: -Completed cycle 2 of carbo/etoposide on 05/08 -Plan to continue on carbo/etoposide, will consider dose reduction -Will schedule f/u with Dr Gideon Wells upon discharge before beginning next cycle to reassess patient once fully recovered attests: I have performed a H&P and developed impression and plan of care for patient, discussed with dictator. I agree with dictated note, documented as a scribe
[2022-05-13] MEDS: ONDANSETRON 4 MG/2 ML VIAL IVP PRN (20:38)
[2022-05-14] MEDS: LOPERAMIDE 2 MG CAP PO SCH ×5 (04:58→16:49)
[2022-05-14] MEDS: SODIUM CHLORIDE 0.9% 1,000 ML IV SCH ×2 (07:34→16:15)
[2022-05-14] MEDS: carvediloL 6.25 MG TAB PO SCH ×3 (08:20→16:49)
[2022-05-14] MEDS: ENOXAPARIN 40 MG/0.4 ML SYRINGE SQ SCH (08:21)
[2022-05-14] MEDS: amLODIPine 5 MG TAB PO SCH ×2 (08:21→11:33)
[2022-05-14] MEDS: MORPHINE SULFATE ER 15 MG TABLET PO SCH ×2 (08:21→20:11)
[2022-05-14] MEDS: PANTOPRAZOLE 40 MG/10 ML VIAL IV SCH (08:22)
[2022-05-14] MEDS: ONDANSETRON 4 MG/2 ML VIAL IVP PRN ×2 (08:39→20:09)
[2022-05-14] MEDS: MORPHINE SULFATE IR 15 MG TABLET PO PRN (08:40)
[2022-05-14 09:45] LABS: African American GFR (CKD) 118.9 (60.0-200.0); Albumin 3.2 g/dL (3.8-4.9); Albumin/Globulin Ratio 1.39 (1.60-3.17); Anion Gap 12.7 mmol/L (10.00-18.00); Calcium 8.2 mg/dL (8.7-10.3); Carbon Dioxide 19.3 mmol/L (20.0-27.5); Globulin 2.3 g/dL (1.6-3.3); Magnesium 1.9 mg/dL (1.5-2.4); Non-African American GFR(CKD) 102.6 (60.0-200.0); Potassium 3.9 mmol/L (3.5-5.5); Total Bilirubin 1.3 mg/dL (0.30-1.20); Total Protein 5.5 g/dL (6.2-8.2)
--- NOTE | 2022-05-14 10:06 | FL ---
EXAMINATION TYPE: FL UGI w esophagus DATE OF EXAM: 05/14/2022 9:38 AM COMPARISON: NONE CLINICAL HISTORY: Esophageal CA A total of 116 seconds of fluoroscopic time was utilized during procedure and 17 images obtained. Preliminary view of the abdomen reveals a normal bowel gas pattern. Upper GI examination was performed according to the air contrast technique. Barium and effervescent crystal was swallowed without difficulty or delay. Noted was aspiration and therefore the amount of c ontrast given to the patient was reduced. Esophageal peristalsis and motility are within normal limi ts. Slight irregularity distal esophagus suggested. Correlate with endoscopic findings. No evidence f or obstructing mass. Small reducible hiatal hernia and mild gastroesophageal reflux noted during the course of the examination. The stomach has a normal appearance in terms of its size, shape and location. No gastric filling def ects or ulcer craters are seen. The duodenal bulb and sweep are also free of intraluminal lesion or ulcer crater. Moderate-sized descending duodenal diverticulum. IMPRESSION: 1. Slight irregularity distal esophagus could reflect the site of endoscopic proven esophageal carcin ryan. No evidence for large mass or obstructive change. 2. Aspiration.
[2022-05-14 10:17] LABS: HCT 26.7 % (39.6-50.0); HGB 8.6 g/dL (13.0-17.0); MCH 30.9 pg (27.0-32.0); MCHC 32.2 g/dL (32.0-37.0); Mean Platelet Volume 11.2 fL (9.5-12.2); NRBC Per 100 WBC 0 /100 WBCS (0.0-0.0); Platelet Count 96 X 10*3/uL (140-440); RBC 2.78 X 10*6/uL (4.40-5.60); RDW 16.8 % (11.5-14.5); WBC 2.37 X 10*3/uL (4.50-10.00)
[2022-05-14] MEDS ORDERED: PROCHLORPERAZINE 10 MG TAB PO ONE (10:56)
--- NOTE | 2022-05-14 12:57 | P.PN ---
Subjective Progress Note Date: 05/14/22 CHIEF COMPLAINT: Esophageal cancer HISTORY OF PRESENT ILLNESS: Patient has history of esophageal cancer. It's been having nausea, vomiting and pain. Upper GI completed today with results showing slight irregularity distal esophagus could reflect the site of endoscopic proven esophageal carcinoma. No evidence for large mass or obstructive change. Evidence of aspiration. Patient is currently seen by speech therapy. They are making him NPO due to aspiration. Afebrile. WBC is 2.37 Hgb 8.6 platelets 96 symptoms 137 potassium 3.9 creatinine 0.6 PHYSICAL EXAM: VITAL SIGNS: Reviewed GENERAL: Well-developed in no acute distress. HEENT: No sclera icterus. Extraocular movements grossly intact. Moist buccal mucosa. Head is atraumatic, normocephalic. Hears conversational speech. No nasal drain age. NECK: Supple without lymphadenopathy. CHEST: Non-labored respirations and equal bilateral excursions. CARDIOVASCULAR: Palpable 2+ radial pulses. ABDOMEN: Soft. Nondistended. Nontender. MUSCULOSKELETAL: No clubbing or cyanosis. NEUROLOGIC: No focal or lateralizing signs. Cranial nerves II through XII grossly intact. PSYCH: Appropriate affect. Alert and oriented to person, place and time. SKIN: Well perfused. Good skin turgor. ASSESSMENT: 1. Small cell neuroendocrine esophageal carcinoma 2. Intractable nausea vomiting and diarrhea likely chemotherapy-induced 3. Failure to thrive 4. Lactic acidosis likely related to dehydration. Improved with IV fluids. 5. History of pacemaker PLAN: -Patient scheduled for EGD with PEG tube placement tomorrow, 05/15/[address] Womack -Nothing by mouth after midnight -Continue supportive care Physician Wardrobe Custodian note has been reviewed by physician. Signing provider agrees with the documented findings, assessment, and plan of care. Objective - Vital Signs Vital signs: Vital Signs Temp 98.6 F 05/14/22 07:30 Pulse 60 05/14/22 09:36 Resp 18 05/14/22 07:30 BP 120/70 05/14/22 07:30 Pulse Ox 98 05/14/22 02:50 FiO2 Intake & Output 05/13/22 05/14/22 05/14/22 18:59 06:59 18:59 Output Total 75 Balance -75 Weight 68.039 kg Output: Urine 75 Other: Voiding Method Bedside Commode Bedside Commode Bedside Commode Urinal Urinal Urinal # Voids 1 # Bowel Movements 2 - Labs CBC & Chem 7: 05/14/22 06:46 05/14/22 06:46 Labs: Abnormal Lab Results - Last 24 Hours (Table) 05/14/22 05/14/22 Range/Units 06:46 06:46 WBC 2.37 L (4.50-10.00) X 10*3/uL RBC 2.78 L (4.40-5.60) X 10*6/uL Hgb 8.6 L (13.0-17.0) g/dL Hct 26.7 L (39.6-50.0) % RDW 16.8 H (11.5-14.5) % Plt Count 96 L (140-440) X 10*3/uL Carbon Dioxide 19.3 L (20.0-27.5) mmol/L Calcium 8.2 L (8.7-10.3) mg/dL Total Bilirubin 1.30 H (0.30-1.20) mg/dL Total Protein 5.5 L (6.2-8.2) g/dL Albumin 3.2 L (3.8-4.9) g/dL Albumin/Globulin Ratio 1.39 L (1.60-3.17) g/dL
--- NOTE | 2022-05-14 15:28 | P.PN ---
Subjective Progress Note Date: 05/14/22 Principal diagnosis: n/v/d upon visit today patient is resting comfortably in bed. He is reporting nausea this morning after his swallow study. Also complaining of persisting diarrhea despite Imodium. Denies abdominal pain at this time. PEG tube placement is scheduled tomorrow with surgical team. No other reported complaints at this time. Objective - Vital Signs Vital signs: Vital Signs Temp 98.6 F 05/14/22 13:05 Pulse 64 05/14/22 13:05 Resp 22 05/14/22 13:05 BP 123/73 05/14/22 13:05 Pulse Ox 98 05/14/22 13:05 FiO2 Intake & Output 05/13/22 05/14/22 05/14/22 18:59 06:59 18:59 Output Total 75 Balance -75 Weight 68.039 kg Output: Urine 75 Other: Voiding Method Bedside Commode Bedside Commode Bedside Commode Urinal Urinal Urinal # Voids 1 # Bowel Movements 2 - Constitutional General appearance: Present: average body habitus, no acute distress - EENT Eyes: Present: anicteric sclerae, EOMI ENT: Present: hearing grossly normal - Respiratory Details: breathing is even and unlabored - Cardiovascular Details: skin warm and dry - Gastrointestinal General gastrointestinal: Present: soft. Absent: tenderness - Integumentary Integumentary: Present: pale - Neurologic Neurologic: Present: CNII-XII intact - Musculoskeletal Musculoskeletal: Present: strength equal bilaterally - Psychiatric Psychiatric: Present: A&O x's 3, appropriate affect, intact judgment & insight - Labs CBC & Chem 7: 05/14/22 06:46 05/14/22 06:46 Labs: Abnormal Lab Results - Last 24 Hours (Table) 05/14/22 05/14/22 Range/Units 06:46 06:46 WBC 2.37 L (4.50-10.00) X 10*3/uL RBC 2.78 L (4.40-5.60) X 10*6/uL Hgb 8.6 L (13.0-17.0) g/dL Hct 26.7 L (39.6-50.0) % RDW 16.8 H (11.5-14.5) % Plt Count 96 L (140-440) X 10*3/uL Carbon Dioxide 19.3 L (20.0-27.5) mmol/L Calcium 8.2 L (8.7-10.3) mg/dL Total Bilirubin 1.30 H (0.30-1.20) mg/dL Total Protein 5.5 L (6.2-8.2) g/dL Albumin 3.2 L (3.8-4.9) g/dL Albumin/Globulin Ratio 1.39 L (1.60-3.17) g/dL Assessment and Plan (1) Diarrhea Current Visit: Yes Status: Acute Code(s): R19.7 - DIARRHEA, UNSPECIFIED SNOMED Code(s): 62257275 (2) Small cell carcinoma of esophagus Current Visit: Yes Status: Acute Priority: Medium Code(s): C15.9 - MALIGNANT NEOPLASM OF ESOPHAGUS, UNSPECIFIED SNOMED Code(s): 330446927 Plan: N/V/D: -Pt reports symptoms were progressing at home, despite taking home medications for nausea, and was unable to tolerate oral intake, causing dizziness and falls. -Pt reported since admission n/v has subsided with IV compazine. However, nausea started again this morning, after swallow study. Compazine was d/c. Will restart patient on IVP compazine prn. Encouraged oral intake as tolerated -Imodium added for diarrhea. Will increase dose to 4mg -General surgery consulted for evaluation for peg tube, as pt continues to lose weight and has poor oral intake at home. Plan for peg tube placement tomorrow. Clammer also consulted -Will transition pt to oral pain medications and titrate to effective dose for pain control. Pt continues on morphine XR, and states morphine IR for breakthrough pain is working well to control pain. Will continue on current pain regimen. Medications sent to patients pharmacy on file. -Will add zyrexa to next chemo cycle for chemo-induced n/v. Instructed pt to d/c thorazine Esophageal cancer: -Completed cycle 2 of carbo/etoposide on 05/08 -Plan to continue on carbo/etoposide, will consider dose reduction due to severity of side effects -Will schedule f/u with Dr Gideon Wells upon discharge before beginning next cycle to reassess patient once fully recovered -Pt agreeable with POC attests: I have performed a H&P and developed impression and plan of care for patient, discussed with dictator. I agree with dictated note, documented as a scribe
--- NOTE | 2022-05-14 15:31 | P.PN ---
Subjective Progress Note Date: 05/14/22 Hospital course: Mr. 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 Wells with last chemotherapy treatment being 05/08/22. Patient presented to the emergency department today secondary to weakness resulting from intractable nausea, vomiting, and diarrhea 24 hours. Patient reports he has consistently been on the toilet and pretty much unable to eat or drink which has resulted in significant lightheadedness, dizziness, and weakness which has resulted in 2 falls prior to arrival. Patient denies having any injuries from these falls and denies hitting his head. He reports he was just simply too weak to stand anymore. Patient reports since beginning chemotherapy patient has lost well over 20 pounds and upon further chart review patient's documented weight on 04/22/22 with 87 kg and upon arrival to our facility today patient's weight was 68.039 kg which is a documented 18.96 kg or 41.7 pound weight loss in 20 days. Patient is requesting a PEG tube placement during this admission to ensure he is able to have some form of intake prior to continuing on with chemotherapy. He reports his next dose is supposed to be 05/16/22. Patient denies any recent illnesses or known exposure to ill contacts, fevers, chills, hemoptysis, cough or congestion, chest pain, palpitations, shortness of breath, hematemesis, melena, hematochezia, or exper iencing any difficulties with urination. He underwent full evaluation in the emergency department. Labs completed and reviewed. CBC completed revealing leukocytosis with WBC count of 12.6. BMP revealing prerenal azotemia with BUN of 26. Liver profile revealing elevated total bili of 2.8 which appears to be chronically elevated dating back as far as 2019. Lactic acid elevated at 3.4. Troponin 0.029. EKG completed revealing a dual paced rhythm at 72 bpm. Chest x- ray completed and personally reviewed, lungs appear clear with pacemaker in place to left anterior chest and no signs of acute cardiopulmonary process. Patient and provided with a 2 L bolus for treatment of lactic acidosis and started on normal saline infusion with 0.9% normal saline at 130 mL's per hour. Patient's history and presenting symptoms along with laboratory analysis, EKG, and imaging findings discussed in detail with the ED physician, Dr. Sanon. Patient is being admitted under our services to general medical unit with consultation to oncology and general surgery. Physical exam: Patient seen and fully evaluated at bedside this morning. Patient was visiting with at bedside. He reports he is still having persistent diarrhea and has had one episode of nausea but denies any further episodes of vomiting. Patient states pain is controlled with current pain medication regimen. Vital signs reviewed and stable. General: Nontoxic, no distress and appears stated age. Derm: Skin warm, dry with pallor. Head: Atraumatic, normocephalic and symmetric. Eyes: EOMs intact, no lid lag, and anicteric sclera Mouth: no lip lesions, mucus membranes dry Cardiovascular: regular rate and rhythm with normal S1S2, systolic murmur, positive posterior tibial pulses bilaterally, and cap refill < [address] left anterior chest . Lungs: Respirations even, regular, and unlabored on room air. Lungs CTA bilaterally, no rhonchi, no rales, no wheezing, and no accessory muscle usage. Abdominal: soft, nontender to palpation, no guarding, no appreciable organomegaly Ext: ROM intact. No gross muscle atrophy, no edema, no contractures Neuro: Speech clear, face symmetrical and CN II-XII grossly intact with no noted focal neuro deficits Psych: Alert and oriented to person, place, time, and situation. Appropriate and pleasant affect. 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 CBC revealing pancytopenia with WBC count of 2. 37, hemoglobin 8.6, and platelet count of 96. BMP unremarkable. Liver profile revealing improvement of total bilirubinemia with bilirubin of 1.30. -Oncology following, recommending starting patient on Imodium 2 mg every 4 hours. -Gen. surgery following and discussed plan of care with general surgery PA. General surgery PA stated patient has been scheduled for EGD with PEG tube placement on 05/15/22. -Elevated bilirubin appears chronic and upon chart review dating back as early as 2019, however elevated total bili has improved from initial 2.8 down to 1.3 this morning. -Continue Marinol 5 mg twice daily along with as needed Zofran for breakthrough nausea and vomiting. -We will continue to monitor closely and repeat morning CBC, CMP, and magnesium. CODE STATUS: Full code DVT prophylaxis: Lovenox Discussed with: patient, RN, and general surgery PA Anticipated discharge date: clinical course to determine Anticipated discharge place: Home Patient was seen independently by Nurse Practitioner. This document was prepared using [employer] dictation software. Please allow for errors in fsr while rare they do occur. I reviewed the documentation as provided by the ANNE above, who is the original author of this note. I agree with the documented assessment and plan, with the following changes: none Objective - Vital Signs Vital signs: Vital Signs Temp 98.6 F 05/14/22 07:30 Pulse 60 05/14/22 07:30 Resp 18 05/14/22 07:30 BP 120/70 05/14/22 07:30 Pulse Ox 98 05/14/22 02:50 FiO2 Intake & Output 05/13/22 05/14/22 05/14/22 18:59 06:59 18:59 Output Total 75 Balance -75 Weight 68.039 kg Output: Urine 75 Other: Voiding Method Bedside Commode Bedside Commode Urinal Urinal # Voids 1 # Bowel Movements 2 - Labs CBC & Chem 7: 05/20/22 03:42 05/19/22 10:15 Labs: Abnormal Lab Results - Last 24 Hours (Table) 05/13/22 05/13/22 Range/Units 06:20 06:20 RBC 3.03 L (4.40-5.60) X 10*6/uL Hgb 9.5 L (13.0-17.0) g/dL Hct 29.4 L (39.6-50.0) % RDW 17.2 H (11.5-14.5) % Plt Count 128 L (140-440) X 10*3/uL Plt Count Comment DECREASED A Immature Gran # 0.10 H (0.00-0.04) X 10*3/uL Lymphocytes # 0.88 L (0.90-5.00) X 10*3/uL Monocytes # 0.04 L (0.20-1.00) X 10*3/uL BUN/Creatinine Ratio 24.16 H (12.00-20.00) Ratio Glucose 112 H (70-110) mg/dL Calcium 8.4 L (8.7-10.3) mg/dL Total Bilirubin 1.50 H (0.30-1.20) mg/dL Total Protein 5.9 L (6.2-8.2) g/dL Albumin 3.3 L (3.8-4.9) g/dL Albumin/Globulin Ratio 1.33 L (1.60-3.17) g/dL
[2022-05-14] MEDS: PROCHLORPERAZINE INJ 10 MG/2 ML VIAL IVP PRN (17:38)
[2022-05-15] MEDS: PROCHLORPERAZINE INJ 10 MG/2 ML VIAL IVP PRN (01:33)
[2022-05-15] MEDS: LOPERAMIDE 2 MG CAP PO SCH ×2 (04:48→05:57)
[2022-05-15] MEDS ORDERED: PROPOFOL 10 MG/ML 20 ML VIAL IV ONE (08:01)
[2022-05-15] MEDS ORDERED: SUCCINYLCHOLINE CHLORIDE 200 MG/10 ML VIAL IV ONE (08:01)
[2022-05-15] MEDS ORDERED: WATER FOR INJECTION, STERILE 10 ML VIAL IV ONE (08:01)
[2022-05-15] MEDS ORDERED: ePHEDrine 50 MG/ML 1 ML VIAL ONE (08:01)
[2022-05-15] MEDS ORDERED: LIDOCAINE 2% INJ 20 MG/ML (2 ML VIAL) ONE (08:01)
[2022-05-15] MEDS ORDERED: IV FLUID CONTINUATION 1,000 ML IV ONE ×2 (08:06)
[2022-05-15] MEDS ORDERED: SODIUM CHLORIDE 0.9% 500 ML 500 ML IV ONE (08:46)
--- NOTE | 2022-05-15 08:52 | P.PCN ---
Date of Procedure: 05/15/22 Description of Procedure: PREOPERATIVE DIAGNOSIS: Distal esophageal cancer Intractable nausea vomiting Severe protein malnutrition secondary to inadequate protein intake. Chemotherapy, active Anorexia secondary to chemotherapy and malignancy. Hypoalbuminemia. POSTOPERATIVE DIAGNOSIS: Distal esophageal cancer Intractable nausea vomiting Severe protein malnutrition secondary to inadequate protein intake. Chemotherapy, active Anorexia secondary to chemotherapy and malignancy. Hypoalbuminemia. OPERATION: Esophagogastroduodenoscopy with percutaneous endoscopic gastrostomy tube placement 20-[place], Endovive Push techniquePradeep SURGEON: Kaylynn Womack MD ANESTHESIA: GETA INDICATIONS: The patient is a 71-year-old male who presents with intractable nausea vomiting, distal esophageal cancer, inadequate protein intake and moderate to severe protein malnutrition. Benefits and risks of the procedure were described. Informed consent was obtained. DESCRIPTION: The patient was laid in supine position. After adequate IV sedation a bite block was placed. An Olympus gastroscope was passed along the posterior oropharynx down the distal esophagus. Esophageal malignancy was identified with 75% circumference, friable, 3 cm proximal to squamocolumnar junction. The stomach was entered. Gastritis was encountered. The antrum appeared unremarkable. A point along the anterior surface, greater curvature of the stomach was selected. The skin was cleansed with ChloraPrep and an incision was made after illuminating the proposed PEG tube site and pressure point. The skin was localized with 5 mL 1% lidocaine. Using a 16-[place] Island[place] needle, a guidewire was fed into the stomach under endoscopic visualization. A snare was used to pull the guidewireout of the mouth. Over the guidewire, the PEG tube was pushed then pulled over the guidewire until it exited through the skin incision. The noni dewire was removed. The round fitting clasp was placed over the gastrostomy tube and fixed at 7 cm at the skin. Betadine gel was applied along the gastrostomy tube site. Small 2 x 2 dressing was placed. A feeding adapter was placed at the cut end of the feeding tube. An endoscopic captured image of the gastrostomy tube within the stomach was made. The patient tolerated the procedure well. Findings: 1. Esophageal malignancy was identified with 75% circumference, friable, 3 cm proximal to squamocolumnar junction. 2. The round fitting clasp was placed over the gastrostomy tube and fixed at 7 cm at the skin. 3. No acute gastric ulcers. 4. No acute duodenitis. 5. Food retained into the stomach and gastric cardia Disposition: May start tube feeds immediately with goal determined by talent acquisition partner. Plan - Discharge Summary Discharge Rx Participant: No New Discharge Prescriptions: No Action amLODIPine [Norvasc] 5 mg PO DAILY #30 tab Pantoprazole Sodium [Protonix] 40 mg PO DAILY #30 tab Ondansetron [Zofran] 4 mg PO Q4HR PRN #45 tab PRN Reason: Nausea LORazepam [Ativan] 0.5 mg PO Q6H PRN PRN Reason: Nausea And Vomiting chlorproMAZINE [Thorazine] 10 mg PO Q6H PRN PRN Reason: hiccups Lidocaine Viscous 2% [Xylocaine Viscous] 30 ml PO TID PRN PRN Reason: Pain Prochlorperazine [Compazine] 10 mg PO Q6H PRN PRN Reason: Nausea carvediloL [Coreg] 6.25 mg PO BID HYDROcodone/APAP 7.5-325MG [[place] 7.5-325] 1 tab PO Q6HR PRN PRN Reason: Pain Morphine Sulfate [Morphine Sulfate ER] 15 mg PO BID Acetaminophen Tab [Tylenol] 650 mg PO Q4HR PRN tab PRN Reason: Fever And/ Or Pain Discharge Medication List amLODIPine [Norvasc] 5 mg PO DAILY #30 tab 10/01/19 [Rx] carvediloL [Coreg] 6.25 mg PO BID 03/21/22 [History] Pantoprazole Sodium [Protonix] 40 mg PO DAILY #30 tab 03/23/22 [Rx] HYDROcodone/APAP 7.5-325MG [[place] 7.5-325] 1 tab PO Q6HR PRN 03/30/22 [History] Morphine Sulfate [Morphine Sulfate ER] 15 mg PO BID 03/30/22 [History] Ondansetron [Zofran] 4 mg PO Q4HR PRN #45 tab 04/08/22 [Rx] Acetaminophen Tab [Tylenol] 650 mg PO Q4HR PRN tab 04/09/22 [Rx] LORazepam [Ativan] 0.5 mg PO Q6H PRN 04/17/22 [History] Lidocaine Viscous 2% [Xylocaine Viscous] 30 ml PO TID PRN 05/12/22 [History] Prochlorperazine [Compazine] 10 mg PO Q6H PRN 05/12/22 [History] chlorproMAZINE [Thorazine] 10 mg PO Q6H PRN 05/12/22 [History] Follow up Appointment(s)/Referral(s): Gideon Wells MD [STAFF PHYSICIAN] - 05/20/22 3:00 pm Bart Blackman MD [Primary Care Provider] - 1-2 days [facility], [REFERRING] - 1 Week [facility] Nurse, [NON-STAFF] - 1 Week
--- NOTE | 2022-05-15 08:54 | P.PN ---
Progress Note - Text Progress Note Date: 05/15/22 May start tube feeds. Continue prophylactic antibiotics. Tube feed goals per dietitian.
[2022-05-15] MEDS ORDERED: LOPERAMIDE 2 MG CAP PO PRN (09:21)
[2022-05-15] MEDS: MORPHINE SULFATE IR 15 MG TABLET PO PRN ×2 (10:52→17:04)
[2022-05-15 11:04] LABS: African American GFR (CKD) 118.9 (60.0-200.0); Albumin 2.8 g/dL (3.8-4.9); Albumin/Globulin Ratio 1.33 (1.60-3.17); Anion Gap 7.2 mmol/L (10.00-18.00); BUN/Creat Ratio 10.67 Ratio (12.00-20.00); Blood Urea Nitrogen 6.4 mg/dL (9.0-27.0); Calcium 7.8 mg/dL (8.7-10.3); Carbon Dioxide 23.8 mmol/L (20.0-27.5); Globulin 2.1 g/dL (1.6-3.3); Magnesium 1.8 mg/dL (1.5-2.4); Non-African American GFR(CKD) 102.6 (60.0-200.0); Potassium 3.7 mmol/L (3.5-5.5); Total Bilirubin 1.5 mg/dL (0.30-1.20); Total Protein 4.9 g/dL (6.2-8.2)
[2022-05-15 11:11] LABS: HCT 23.5 % (39.6-50.0); HGB 7.5 g/dL (13.0-17.0); Immature Platelet Fraction 5.9 % (1.1-6.1); MCH 30.9 pg (27.0-32.0); MCHC 31.9 g/dL (32.0-37.0); MCV 96.7 fL (80.0-97.0); Mean Platelet Volume 11.9 fL (9.5-12.2); NRBC Per 100 WBC 0 /100 WBCS (0.0-0.0); Platelet Count 58 X 10*3/uL (140-440); RBC 2.43 X 10*6/uL (4.40-5.60); RDW 16.5 % (11.5-14.5); WBC 0.89 X 10*3/uL (4.50-10.00)
[2022-05-15] MEDS: amLODIPine 5 MG TAB PO SCH (11:20)
[2022-05-15] MEDS: MORPHINE SULFATE ER 15 MG TABLET PO SCH ×2 (11:21→21:21)
[2022-05-15] MEDS: carvediloL 6.25 MG TAB PO SCH ×2 (11:25→17:03)
[2022-05-15] MEDS: ENOXAPARIN 40 MG/0.4 ML SYRINGE SQ SCH (11:26)
[2022-05-15] MEDS: PANTOPRAZOLE 40 MG/10 ML VIAL IV SCH (11:26)
--- NOTE | 2022-05-15 12:05 | P.PN ---
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 Wells with last chemotherapy treatment being 05/08/22. Patient presented to the emergency department today secondary to weakness resulting from intractable nausea, vomiting, and diarrhea 24 hours. Patient reports since beginning chemotherapy patient has lost well over 20 pounds and upon further chart review patient's documented weight on 04/22/22 with 87 kg and upon arrival to our facility today patient's weight was 68.039 kg which is a documented 18.96 kg or 41.7 pound weight loss in 20 days. Patient is requesting a PEG tube placement during this admission to ensure he is able to have some form of intake prior to continuing on with chemotherapy. Initial CBC completed revealing leukocytosis with WBC count of 12.6. BMP revealing prerenal azotemia with BUN of 26. Liver profile revealing elevated total bili of 2.8 which appears to be chronically elevated dating back as far as 2019. Lactic acid elevated at 3.4. Troponin 0.029. EKG completed revealing a dual paced rhythm at 72 bpm. Chest x-ray completed and personally reviewed, lungs appear clear with pacemaker in place to left anterior chest and no signs of acute cardiopulmonary process. Patient and provided with a 2 L bolus for treatment of lactic acidosis and started on normal saline infusion with 0.9% normal saline at 130 mL's per hour. Patient is being admitted under our services to general medical unit with consultation to oncology and general surgery. Patient is now status post EGD and PEG tube placement. Subjective: Patient seen and examined at bedside. No acute events overnight. He just returned from his procedure. He has mild tenderness at the PEG tube site. He denies any nausea, vomiting, any other abdominal pain, chest pain, shortness of breath, urinary or bowel complaints. Pertinent positives and negatives as discussed above, a complete review of systems was performed and all other systems are negative. Vitals Signs Reviewed. General: nontoxic, no distress, appears at stated age Derm: warm, dry Head: atraumatic, normocephalic, symmetric Eyes: EOMI, no lid lag, anicteric sclera Mouth: no lip lesion, mucus membranes moist Cardiovascular: S1S2 reg, systolic murmur Lungs: CTA bilateral, no rhonchi, no rales , no accessory muscle use Abdominal: soft, nontender to palpation, no guarding, no appreciable organomegaly, PEG tube site assaying appears clean, dry, intact Ext: no gross muscle atrophy, no edema, no contractures Neuro: CN II-XI grossly intact, no focal neuro deficits Psych: Alert, oriented, appropriate affect Data Reviewed Today: Pertinent Labs: WBC 0.89, hemoglobin 7.5, platelet 58, sodium 135, potassium 2. 7, creatinine 0.6, magnesium 1.8, total bilirubin 1.5 Assessment and Plan: Active: Dysphagia status post PEG tube placement Severe protein calorie malnutrition Stage IV small cell neuroendocrine esophageal carcinoma Pancytopenia Hyperbilirubinemia -Surgery note reviewed: EGD showed esophageal malignancy with 75% circumference, friable, 3 cm proximal to squamocolumnar junction, no acute gastric ulcer or acute duodenitis -May start tube feeds per surgery -Dietitian consult has been ordered -Oncology following -Pancytopenia likely in the setting of chemotherapy -No active bleeding -Hyperbilirubinemia is chronic Resolved: Intractable nausea, vomiting, diarrhea, chemotherapy-induced Lactic acidosis Chronic: Hypertension DVT ppx: Lovenox Code status: Full code Anticipated discharge place: Pending clinical course Anticipated discharge time: Pending clinical course Objective - Vital Signs Vital signs: Vital Signs Temp 98 F 05/15/22 10:53 Pulse 57 L 05/15/22 10:53 Resp 18 05/15/22 10:53 BP 132/66 05/15/22 10:53 Pulse Ox 98 05/15/22 10:53 FiO2 Intake & Output 05/14/22 05/15/22 05/15/22 18:59 06:59 18:59 Intake Total 350 Output Total 725 800 400 Balance -725 -800 -50 Intake: IV 350 Output: Urine 725 800 400 Other: Voiding Method Bedside Commode Toilet Urinal # Voids 1 1 # Bowel Movements 2 0 - Labs CBC & Chem 7: 05/15/22 07:23 05/15/22 07:23 Labs: Abnormal Lab Results - Last 24 Hours (Table) 05/15/22 05/15/22 Range/Units 07:23 07:23 WBC 0.89 L* (4.50-10.00) X 10*3/uL RBC 2.43 L (4.40-5.60) X 10*6/uL Hgb 7.5 L (13.0-17.0) g/dL Hct 23.5 L (39.6-50.0) % MCHC 31.9 L (32.0-37.0) g/dL RDW 16.5 H (11.5-14.5) % Plt Count 58 L (140-440) X 10*3/uL Anion Gap 7.20 L (10.00-18.00) mmol/L BUN 6.4 L (9.0-27.0) mg/dL BUN/Creatinine Ratio 10.67 L (12.00-20.00) Ratio Calcium 7.8 L (8.7-10.3) mg/dL Total Bilirubin 1.50 H (0.30-1.20) mg/dL Total Protein 4.9 L (6.2-8.2) g/dL Albumin 2.8 L (3.8-4.9) g/dL Albumin/Globulin Ratio 1.33 L (1.60-3.17) g/dL
[2022-05-15] MEDS ORDERED: FILGRASTIM-SNDZ 480 MCG/0.8 ML SYRINGE SQ STA (12:11)
[2022-05-15] MEDS ORDERED: HYDROmorphone 1 MG/ML 1 ML SYRINGE IVP STA (13:16)
--- NOTE | 2022-05-15 14:38 | P.PN ---
Subjective Progress Note Date: 05/15/22 Principal diagnosis: n/v/d Upon visit today patient is resting comfortably in bed. He is s/p peg tube placement. Reports pain at insertion site. He reports n/v has subsided, and that diarrhea has improved. Will switch imodium to 2mg prn. No other reported complaints at this time. Objective - Vital Signs Vital signs: Vital Signs Temp 98.5 F 05/15/22 13:22 Pulse 81 05/15/22 13:22 Resp 16 05/15/22 13:22 BP 153/77 05/15/22 13:22 Pulse Ox 96 05/15/22 13:22 FiO2 Intake & Output 05/14/22 05/15/22 05/15/22 18:59 06:59 18:59 Intake Total 350 Output Total 725 800 400 Balance -725 -800 -50 Weight 68.039 kg Intake: IV 350 Output: Urine 725 800 400 Other: Voiding Method Bedside Commode Toilet Urinal # Voids 1 1 # Bowel Movements 2 0 - Constitutional General appearance: Present: average body habitus, no acute distress - EENT Eyes: Present: anicteric sclerae, EOMI ENT: Present: hearing grossly normal - Respiratory Details: breathing is even and unlabored - Cardiovascular Details: skin is warm and dry - Integumentary Integumentary: Present: pale - Neurologic Neurologic Comment(s): grossly intact - Musculoskeletal Musculoskeletal: Present: strength equal bilaterally - Psychiatric Psychiatric: Present: A&O x's 3, appropriate affect, intact judgment & insight - Labs CBC & Chem 7: 05/15/22 07:23 05/15/22 07:23 Labs: Abnormal Lab Results - Last 24 Hours (Table) 05/15/22 05/15/22 Range/Units 07:23 07:23 WBC 0.89 L* (4.50-10.00) X 10*3/uL RBC 2.43 L (4.40-5.60) X 10*6/uL Hgb 7.5 L (13.0-17.0) g/dL Hct 23.5 L (39.6-50.0) % MCHC 31.9 L (32.0-37.0) g/dL RDW 16.5 H (11.5-14.5) % Plt Count 58 L (140-440) X 10*3/uL Anion Gap 7.20 L (10.00-18.00) mmol/L BUN 6.4 L (9.0-27.0) mg/dL BUN/Creatinine Ratio 10.67 L (12.00-20.00) Ratio Calcium 7.8 L (8.7-10.3) mg/dL Total Bilirubin 1.50 H (0.30-1.20) mg/dL Total Protein 4.9 L (6.2-8.2) g/dL Albumin 2.8 L (3.8-4.9) g/dL Albumin/Globulin Ratio 1.33 L (1.60-3.17) g/dL - Imaging and Cardiology barium swallow study reviewed Assessment and Plan (1) Diarrhea Current Visit: Yes Status: Acute Code(s): R19.7 - DIARRHEA, UNSPECIFIED SNOMED Code(s): 77944939 (2) Small cell carcinoma of esophagus Current Visit: Yes Status: Acute Priority: Medium Code(s): C15.9 - MALIG NANT NEOPLASM OF ESOPHAGUS, UNSPECIFIED SNOMED Code(s): 986987275 (3) Leukopenia due to antineoplastic chemotherapy Current Visit: Yes Status: Acute Priority: Medium Code(s): D70.1 - AGRANULOCYTOSIS SECONDARY TO CANCER CHEMOTHERAPY; T45.1X5A - ADVERSE EFFECT OF ANTINEOPLASTIC AND IMMUNOSUP DRUGS, INIT SNOMED Code(s): 356618430 Plan: N/V/D: -Pt reports symptoms were progressing at home, despite taking home medications for nausea, and was unable to tolerate oral intake, causing dizziness and falls. -Pt reported n/v has subsided with IV compazine. Encouraged oral intake as tolerated -Imodium added for diarrhea. Diarrhea has improved, will change imodium to 2mg prn -General surgery consulted. Peg tube placed today. Home Care Manager Rn also consulted -Barium swallow study revealed slight irregularity distal esophagus which could reflect the site of endoscopic proven esophageal carcinoma. No evidence for large mass or obstructive change. Small reducible hiatal hernia and mild gastroesophageal reflux noted -Will transition pt to oral pain medications and titrate to effective dose for pain control. Pt continues on morphine XR, and states morphine IR for breakthrough pain is working well to control pain. Will continue on current pain regimen. Medications sent to patients pharmacy on file. -Will add zyrexa to next chemo cycle for chemo-induced n/v. Instructed pt to d/c thorazine. Chemo-induced Luekopenia: -WBC 890 today, ANC pending. No signs of acute infection, however with recent surgical procedure will add 1 dose of granix for WBC support -Will continue to monitor counts Esophageal cancer: -Completed cycle 2 of carbo/etoposide on 05/08 -Plan to continue on carbo/etoposide, will consider dose reduction due to severity of side effects -Will schedule f/u with Dr Gideon Wells upon discharge before beginning next cycle to reassess patient once fully recovered -Pt agreeable with POC attests: I have performed a H&P and developed impression and plan of care for patient, discussed with dictator. I agree with dictated note, documented as a scribe
[2022-05-16 00:20] LABS: Basophils # (M) 0.15 X 10*3/uL (0.00-0.10); Eosinophils # (M) 0.15 X 10*3/uL (0.04-0.35); Lymphocytes # (M) 0.58 X 10*3/uL (0.90-5.00); Monocytes # (M) 0 X 10*3/uL (0.20-1.00); Neutrophils % (M) 0 %
[2022-05-16 07:53] LABS: Neutrophils # (M) 0 X 10*3/uL (2.00-8.90)
[2022-05-16] MEDS: carvediloL 6.25 MG TAB PO SCH ×2 (08:22→18:30)
[2022-05-16] MEDS: ONDANSETRON 4 MG/2 ML VIAL IVP PRN ×2 (08:27→19:45)
[2022-05-16] MEDS: MORPHINE SULFATE ER 15 MG TABLET PO SCH ×2 (09:56→20:25)
--- NOTE | 2022-05-16 09:56 | P.PN ---
Subjective Progress Note Date: 05/16/22 CHIEF COMPLAINT: Esophageal cancer HISTORY OF PRESENT ILLNESS: Patient has history of esophageal cancer. Patient is status post PEG tube placement yesterday. He was started on tube feedings yesterday. Patient complaining of vomiting and increased abdominal pain at PEG tube site. Also complains of abdominal bloating. He is having flatus and bowel movements. He did have a temp of 100.5 last night. Labs from today are pending PHYSICAL EXAM: VITAL SIGNS: Reviewed GENERAL: Well-developed in no acute distress. HEENT: No sclera icterus. Extraocular movements grossly intact. Moist buccal mucosa. Head is atraumatic, normocephalic. Hears conversational speech. No nasal drainage. NECK: Supple without lymphadenopathy. CHEST: Non-labored respirations and equal bilateral excursions. CARDIOVASCULAR: Palpable 2+ radial pulses. ABDOMEN: Soft. Tender with palpation around PEG tube site. Mildly distended. MUSCULOSKELETAL: No clubbing or cyanosis. NEUROLOGIC: No focal or lateralizing signs. Cranial nerves II through XII grossly intact. PSYCH: Appropriate affect. Alert and oriented to person, place and time. SKIN: Well perfused. Good skin turgor. ASSESSMENT: 1. Small cell neuroendocrine esophageal carcinoma 2. Intractable nausea vomiting and diarrhea likely chemotherapy-induced 3. Failure to thrive 4. Lactic acidosis likely related to dehydration. Improved with IV fluids. 5. History of pacemaker 6. Severe protein calorie malnutrition secondary to inadequate oral intake. 7. Anorexia secondary to chemotherapy and malignancy PLAN: -Placed tube feeds on hold due to increased abdominal pain and vomiting -CT scan abdomen and pelvis ordered for further evaluation due to increased abdominal pain and vomiting and recent PEG tube placement -Continue to monitor -Continue antiemetics as needed -Continue supportive care Physician Poultry Raiser note has been reviewed by physician. Signing provider agrees with the documented findings, assessment, and plan of care. Objective - Vital Signs Vital signs: Vital Signs Temp 98.7 F 05/16/22 07:22 Pulse 62 05/16/22 07:22 Resp 18 05/16/22 07:22 BP 125/72 05/16/22 07:22 Pulse Ox 97 05/16/22 07:22 FiO2 Intake & Output 05/15/22 05/16/22 05/16/22 18:59 06:59 18:59 Intake Total 350 40 Output Total 1100 Balance -750 40 Weight 68.039 kg 86 kg Intake: IV 350 Tube Feeding 40 Output: Urine 1100 Other: Voiding Method Toilet Toilet # Voids 1 # Bowel Movements 0 - Labs CBC & Chem 7: 05/15/22 07:23 05/15/22 07:23 Labs: Abnormal Lab Results - Last 24 Hours (Table) 05/15/22 05/15/22 Range/Units 07:23 07:23 WBC 0.89 L* (4.50-10.00) X 10*3/uL RBC 2.43 L (4.40-5.60) X 10*6/uL Hgb 7.5 L (13.0-17.0) g/dL Hct 23.5 L (39.6-50.0) % MCHC 31.9 L (32.0-37.0) g/dL RDW 16.5 H (11.5-14.5) % Plt Count 58 L (140-440) X 10*3/uL Plt Count Comment DECREASED A Neutrophils # (Manual) 0 L* (2.00-8.90) X 10*3/uL Lymphocytes # (Manual) 0.58 L (0.90-5.00) X 10*3/uL Monocytes # (Manual) 0 L (0.20-1.00) X 10*3/uL Basophils # (Manual) 0.15 H (0.00-0.10) X 10*3/uL Anion Gap 7.20 L (10.00-18.00) mmol/L BUN 6.4 L (9.0-27.0) mg/dL BUN/Creatinine Ratio 10.67 L (12.00-20.00) Ratio Calcium 7.8 L (8.7-10.3) mg/dL Total Bilirubin 1.50 H (0.30-1.20) mg/dL Total Protein 4.9 L (6.2-8.2) g/dL Albumin 2.8 L (3.8-4.9) g/dL Albumin/Globulin Ratio 1.33 L (1.60-3.17) g/dL
[2022-05-16 10:02] LABS: African American GFR (CKD) 118.9 (60.0-200.0); Albumin/Globulin Ratio 1.25 (1.60-3.17); BUN/Creat Ratio 15.33 Ratio (12.00-20.00); Blood Urea Nitrogen 9.2 mg/dL (9.0-27.0); Globulin 2.4 g/dL (1.6-3.3); Magnesium 1.6 mg/dL (1.5-2.4); Non-African American GFR(CKD) 102.6 (60.0-200.0); Potassium 3.6 mmol/L (3.5-5.5); Total Bilirubin 1.7 mg/dL (0.30-1.20); Total Protein 5.4 g/dL (6.2-8.2)
[2022-05-16] MEDS: amLODIPine 5 MG TAB PO SCH (11:00)
[2022-05-16] MEDS: PANTOPRAZOLE 40 MG/10 ML VIAL IV SCH (11:00)
[2022-05-16] MEDS: MORPHINE SULFATE IR 15 MG TABLET PO PRN ×3 (11:00→20:26)
[2022-05-16] MEDS: PROCHLORPERAZINE INJ 10 MG/2 ML VIAL IVP PRN ×2 (11:22→19:44)
[2022-05-16] MEDS: ENOXAPARIN 40 MG/0.4 ML SYRINGE SQ SCH (11:38)
--- NOTE | 2022-05-16 11:45 | CT ---
EXAMINATION TYPE: CT abdomen pelvis wo con DATE OF EXAM: 05/16/2022 COMPARISON: 05/13/2022 INDICATION: N,V&D. Esophageal cancer on chemo. DLP: 817.70 mGycm, Automated exposure control for dose reduction was used. CONTRAST: 0 mL of Isovue 300. Study performed without Oral Contrast TECHNIQUE: Axial images were obtained from above the diaphragm to the pubic rami in the axial plane a t 5 mm thick sections. Reconstructed images are reviewed on the computer in the coronal plane. FINDINGS: Limited CT sections are obtained the lung bases. Small amount of pleural fluid may be in the depende nt lung bases bilaterally.. The distal esophagus may have some mild diffuse thickening. Correlate with the patient's history this could be related to the patient's esophageal cancer. CT ABDOMEN: Dense barium within the colon causes beam hardening artifact in some limitation in the ev aluation of the upper abdomen. Liver: Normal Spleen: Normal Pancreas: Normal. Some atrophy may be may be present. Adrenal glands: The adrenal glands are normal. Gallbladder: Normal Kidneys: No masses are evident. No hydronephrosis is present. No cysts are present. No renal stone s are identified. Aorta: Vascular calcification is within the aorta. Inferior vena cava: Normal. CT PELVIS: There is a large fecal bolus at the rectum. No suspicious changes to suggest obstruction i s evident. Early fecal impaction could be considered. Small bowel loops visualized appear normal without dilated small bowel loops. Dense barium is within the colon. Some subtle inflammatory changes in the left hemipelvis just inferior to the proximal sigm oid colon. Example image series 6 image 38, series 3 image 62. Some mild diverticulitis could be cons idered. Correlate with patient's symptoms. Appendix: Normal as visualized. Urinary bladder: Normal. Genitourinary structures: Prostate appears normal. Osseous structures: No suspicious lytic or sclerotic lesions. Lymphadenopathy: No suspicious retrocrural adenopathy is evident. No obvious periaortic or retrocaval adenopathy. IMPRESSIONS: 1. Some thickening of the distal esophagus within the [id number] could be related to the patient' s esophageal cancer. 2. No suspicious metastatic disease identified. 3. Clinical consideration for some mild diverticulitis in the left lower quadrant is recommended. 4. Correlate for fecal impaction of the rectum. No obstruction is evident. 5. Some limitation during portions of the exam due to significant beam hardening artifact from barium remain present within the colon
--- NOTE | 2022-05-16 11:56 | P.PN ---
Progress Note - Text Progress Note Date: 05/16/22 CT independently eviewed. No complications from PEG tube placement. Moderate urinary retention. Also has gallstones. Notified his nurse immediately to place coronado catheter for severe urinary retention. Follow up after coronado catheter drainage.
--- NOTE | 2022-05-16 13:30 | P.PN ---
Subjective Progress Note Date: 05/16/22 CHIEF COMPLAINT: New-onset abdominal pain HISTORY OF PRESENT ILLNESS: The patient is a 71-year-old male status post gastrostomy tube placement for esophageal cancer and intractable nausea and vomiting yesterday. Today, patient reported abdominal pain. Additional diagnostic studies were obtained. Gastrostomy tube feedings were on hold. Patient and gives additional history of chronic right upper back pain and intermittent right upper quadrant abdominal pain for years. Patient complained primarily of suprapubic pain. No recent bowel movement. Guzman catheter has been placed. He reports improvement of his lower abdominal pain, suprapubic. ROS: No reports of nausea and vomiting. No bowel movements. No fevers or chills. No new chest pain. No productive sputum PHYSICAL EXAM: VITAL SIGNS: Reviewed CONSTITUTIONAL: Well developed and in no acute distress. EYES: Conjuctivae with mild sclera icterus. Extraocular movements grossly intact. HEAD, EARS, NOSE, THROAT: Moist buccal mucosa. Head is atraumatic, normocephalic. Hears conversational speech. No nasal drainage. RESPIRATORY: Non-labored respirations and equal bilateral excursions. CARDIOVASCULAR: Palpable 2+ radial pulses. ABDOMEN: Gastrostomy tube site clean dry and intact MUSCULOSKELETAL: No gross deformity of the lower extremities noted. No clubbing. No cyanosis. SKIN: Good skin turgor. Well perfused. NEUROLOGIC: Cranial nerves II through XII grossly intact. No focal or lateralizing signs. PSYCH: Appropriate affect. Alert and oriented to person, place and time. : Urine is very dark, jessy CLINICAL LABS: Reviewed. WBC count from yesterday demonstrates neutropenia and thrombocytopenia including anemia from recent chemotherapy. Total bilirubin elevated over 1.5. Current CBC pending STUDIES: CT of the abdomen and pelvis independent review demonstrates moderate retained contrast of the ascending colon. Diffuse gaseous distention. Large fecal retention of the rectum. Extremely large dilated bladder consistent with urinary retention. No bleeding or fluid collection at gastrostomy tube site. Gastrostomy tube site in position of the stomach. This is my independent interpretation. Additional findings of gallstones. ASSESSMENT: 1. Acute urinary retention with lower abdominal pain 2. Gallstones with chronic cholecystitis 3. Esophageal cancer 4. Pancytopenia due to recent chemotherapy 5. Esophageal spasm PLAN: 1. Patient reports feeling better after Guzman catheter was placed. Recommend IV fluid hydration, 2 L over 2 hours 2. Repeat CBC and CMP 3. He has symptomatic gallstones however due to recent chemotherapy, surgical intervention at this time prohibitive. 4. Also patient has esophageal spasm sensitive to temperatures extremes including cold. Patient advised to drink warm or room temperature fluids. Objective - Vital Signs Vital signs: Vital Signs Temp 100.3 F H 05/16/22 12:28 Pulse 65 05/16/22 12:28 Resp 17 05/16/22 12:28 BP 120/69 05/16/22 12:28 Pulse Ox 96 05/16/22 12:28 FiO2 Intake & Output 05/15/22 05/16/22 05/16/22 18:59 06:59 18:59 Intake Total 350 40 Output Total 1100 800 Balance -750 40 -800 Weight 68.039 kg 86 kg Intake: IV 350 Tube Feeding 40 Output: Urine 1100 800 Other: Voiding Method Toilet Toilet # Voids 1 # Bowel Movements 0 - Labs CBC & Chem 7: 05/15/22 07:23 05/16/22 05:34 Labs: Abnormal Lab Results - Last 24 Hours (Table) 05/15/22 05/16/22 Range/Units 07:23 05:34 WBC 0.89 L* (4.50-10.00) X 10*3/uL RBC 2.43 L (4.40-5.60) X 10*6/uL Hgb 7.5 L (13.0-17.0) g/dL Hct 23.5 L (39.6-50.0) % MCHC 31.9 L (32.0-37.0) g/dL RDW 16.5 H (11.5-14.5) % Plt Count 58 L (140-440) X 10*3/uL Plt Count Comment DECREASED A Neutrophils # (Manual) 0 L* (2.00-8.90) X 10*3/uL Lymphocytes # (Manual) 0.58 L (0.90-5.00) X 10*3/uL Monocytes # (Manual) 0 L (0.20-1.00) X 10*3/uL Basophils # (Manual) 0.15 H (0.00-0.10) X 10*3/uL Glucose 127 H (70-110) mg/dL Calcium 8.0 L (8.7-10.3) mg/dL Total Bilirubin 1.70 H (0.30-1.20) mg/dL Total Protein 5.4 L (6.2-8.2) g/dL Albumin 3.0 L (3.8-4.9) g/dL Albumin/Globulin Ratio 1.25 L (1.60-3.17) g/dL
[2022-05-16 13:42] LABS: Basophils # (M) 0 X 10*3/uL (0.00-0.10); Eosinophils # (M) 0 X 10*3/uL (0.04-0.35); HCT 23.9 % (39.6-50.0); HGB 7.8 g/dL (13.0-17.0); Immature Platelet Fraction 7.5 % (1.1-6.1); MCH 31.1 pg (27.0-32.0); MCHC 32.6 g/dL (32.0-37.0); MCV 95.2 fL (80.0-97.0); Mean Platelet Volume 10.7 fL (9.5-12.2); Monocytes # (M) 0.04 X 10*3/uL (0.20-1.00); NRBC Per 100 WBC 0 /100 WBCS (0.0-0.0); Neutrophils # (M) 0.41 X 10*3/uL (2.00-8.90); Neutrophils % (M) 48 %; Platelet Count 42 X 10*3/uL (140-440); RBC 2.51 X 10*6/uL (4.40-5.60); RDW 16.5 % (11.5-14.5); WBC 0.86 X 10*3/uL (4.50-10.00)
[2022-05-16] MEDS ORDERED: SODIUM CHLORIDE 0.9% 2,000 ML IV ONE (13:56)
[2022-05-16] MEDS ORDERED: FILGRASTIM-SNDZ 480 MCG/0.8 ML SYRINGE SQ STA (14:53)
[2022-05-16] MEDS: LACTULOSE 20 GM/30 ML CUP PO SCH ×2 (15:01→20:29)
--- NOTE | 2022-05-16 15:03 | P.PN ---
Subjective Progress Note Date: 05/16/22 Principal diagnosis: n/v/d Upon visit today patient is resting comfortably in bed. He is s/p peg tube placement. Reports pain at insertion site. He also reports back pain and n/v x 3 today. He reports diarrhea has subsided. No other reported complaints at this time. Objective - Vital Signs Vital signs: Vital Signs Temp 100.3 F H 05/16/22 12:28 Pulse 65 05/16/22 12:28 Resp 17 05/16/22 12:28 BP 120/69 05/16/22 12:28 Pulse Ox 96 05/16/22 12:28 FiO2 Intake & Output 05/15/22 05/16/22 05/16/22 18:59 06:59 18:59 Intake Total 350 40 Output Total 1100 800 Balance -750 40 -800 Weight 68.039 kg 86 kg Intake: IV 350 Tube Feeding 40 Output: Urine 1100 800 Other: Voiding Method Toilet Toilet # Voids 1 # Bowel Movements 0 - Constitutional General appearance: Present: average body habitus, no acute distress - EENT Eyes: Present: anicteric sclerae, EOMI ENT: Present: hearing grossly normal - Respiratory Details: breathing is even and unlabored - Cardiovascular Details: skin warm and dry - Integumentary Integumentary: Present: pale - Neurologic Neurologic Comment(s): grossly intact - Musculoskeletal Musculoskeletal: Present: strength equal bilaterally - Psychiatric Psychiatric: Present: A&O x's 3, appropriate affect, intact judgment & insight - Labs CBC & Chem 7: 05/16/22 05:34 05/16/22 05:34 Labs: Abnormal Lab Results - Last 24 Hours (Table) 05/15/22 05/16/22 05/16/22 Range/Units 07:23 05:34 05:34 WBC 0.89 L* 0.86 L* (4.50-10.00) X 10*3/uL RBC 2.43 L 2.51 L (4.40-5.60) X 10*6/uL Hgb 7.5 L 7.8 L (13.0-17.0) g/dL Hct 23.5 L 23.9 L (39.6-50.0) % MCHC 31.9 L (32.0-37.0) g/dL RDW 16.5 H 16.5 H (11.5-14.5) % Plt Count 58 L 42 L (140-440) X 10*3/uL Plt Count Comment DECREASED A A Neutrophils # (Manual) 0 L* 0.41 L* (2.00-8.90) X 10*3/uL Lymphocytes # (Manual) 0.58 L 0.40 L (0.90-5.00) X 10*3/uL Monocytes # (Manual) 0 L 0.04 L (0.20-1.00) X 10*3/uL Eosinophils # (Manual) 0 L (0.04-0.35) X 10*3/uL Basophils # (Manual) 0.15 H (0.00-0.10) X 10*3/uL Immature Plt Fraction 7.5 H (1.1-6.1) % Glucose 127 H (70-110) mg/dL Calcium 8.0 L (8.7-10.3) mg/dL Total Bilirubin 1.70 H (0.30-1.20) mg/dL Total Protein 5.4 L (6.2-8.2) g/dL Albumin 3.0 L (3.8-4.9) g/dL Albumin/Globulin Ratio 1.25 L (1.60-3.17) g/dL Assessment and Plan (1) Diarrhea Current Visit: Yes Status: Acute Code(s): R19.7 - DIARRHEA, UNSPECIFIED SNOMED Code(s): 20986846 (2) Small cell carcinoma of esophagus Current Visit: Yes Status: Acute Priority: Medium Code(s): C15.9 - MALIGNANT NEOPLASM OF ESOPHAGUS, UNSPECIFIED SNOMED Code(s): 096721491 (3) Leukopenia due to antineoplastic chemotherapy Current Visit: Yes Status: Acute Priority: Medium Code(s): D70.1 - AGRANULOCYTOSIS SECONDARY TO CANCER CHEMOTHERAPY; T45.1X5A - ADVERSE EFFECT OF ANTINEOPLASTIC AND IMMUNOSUP DRUGS, INIT SNOMED Code(s): 607293257 Plan: N/V/D: -Pt reports symptoms were progressing at home, despite taking home medications for nausea, and was unable to tolerate oral intake, causing dizziness and falls. -Pt reported n/v has worsened today. Has tried zofran without relief, let nurse know to give dose of compazine. Ativan also ordered prn for n/v -Imodium added for diarrhea. Diarrhea has improved and pt reports it has sub sided. -General surgery consulted. S/p Peg tube placement. Whip Operator also consulted -Barium swallow study revealed slight irregularity distal esophagus which could reflect the site of endoscopic proven esophageal carcinoma. No evidence for large mass or obstructive change. Small reducible hiatal hernia and mild gastroesophageal reflux noted -Will transition pt to oral pain medications and titrate to effective dose for pain control. Pt continues on morphine XR, and states morphine IR for rhea kthrough pain is working well to control pain. Will continue on current pain regimen. Medications sent to patients pharmacy on file. -Will add zyrexa to next chemo cycle for chemo-induced n/v. Instructed pt to d/c thorazine. Chemo-induced Luekopenia: -WBC 860 today, ANC 410, improved from yesterday. No signs of acute infection, however with recent surgical procedure will add additional dose of granix for WBC support, with goal of ANC of 1000 -Will continue to monitor counts Esophageal cancer: -Completed cycle 2 of carbo/etoposide on 05/08 -Plan to continue on carbo/etoposide, will consider dose reduction due to severity of side effects -Will schedule f/u with Dr Gideon Wells upon discharge before beginning next cycle to reassess patient once fully recovered -Pt agreeable with POC
--- NOTE | 2022-05-16 16:01 | P.PN ---
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 Wells with last chemotherapy treatment being 05/08/22. Patient presented to [facility] emergency department secondary to weakness resulting from intractable nausea, vomiting, and diarrhea 24 hours. Patient reports since beginning chemotherapy patient has lost well over 20 pounds and upon further chart review patient's documented weight on 04/22/22 with 87 kg and upon arrival to our facility today patient's weight was 68.039 kg which is a documented 18.96 kg or 41.7 pound weight loss in 20 days. Patient is requesting a PEG tube placement during this admission to ensure he is able to have some form of intake prior to continuing on with chemotherapy. Initial CBC completed revealing leukocytosis with WBC count of 12.6. BMP revealing prerenal azotemia with BUN of 26. Liver profile revealing elevated total bili of 2.8 which appears to be chronically elevated dating back as far as 2019. Lactic acid elevated at 3.4. Troponin 0.029. EKG completed revealing a dual paced rhythm at 72 bpm. Chest x-ray completed and personally reviewed, lungs appear clear with pacemaker in place to left anterior chest and no signs of acute cardiopulmonary process. Patient is being admitted under our services to general medical unit with consultation to oncology and general surgery. Patient is now status post EGD and PEG tube placement. Patient seen and examined at bedside. No acute events overnight. He reports abdominal pain at the side of PEG tube. Her reports nausea but no vomiting. He denies any chest pain, shortness breath or palpitations. No fever or chills. General: nontoxic, no distress, appears at stated age Derm: warm, dry Head: atraumatic, normocephalic, symmetric Eyes: EOMI, no lid lag, anicteric sclera Mouth: no lip lesion, mucus membranes moist Cardiovascular: S1S2 reg, systolic murmur Lungs: CTA bilateral, no rhonchi, no rales , no accessory muscle use Abdominal: soft, nontender to palpation, no guarding, no appreciable organomegaly, PEG tube site assaying appears clean, dry, intact Ext: no gross muscle atrophy, no edema, no contractures Neuro: no focal neuro deficits Psych: Alert, oriented, appropriate affect Dysphagia status post PEG tube placement Severe protein calorie malnutrition 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 I have reviewed the following audit consultant notes: Oncology note 05/16, additional dose of granix ordered today for ANC of 410, continue current pain regimen, Zofran/Compazine/Ativan as needed for nausea and vomiting. Surgery note 05/16, recommend IV hydration of 2 L. I have reviewed the results of the following tests: CBC shows WBC count of 0.86, hemoglobin 7.8 and platelet count of 42. CMP shows glucose 127, calcium of 8.0, total bilirubin of 1.7, albumin of 3. I have ordered the following tests: CBC ordered for tomorrow morning. I have discussed the care of this patient with the following independent historian: None. I have independently interpreted the following test below: None. I have discussed the management of this patient with the following physician: None. This patient has a moderate risk of morbidity due to the following reasons: Patient has a chronic diagnosis of dysphagia secondary to esophageal carcinoma leading to severe protein calorie malnutrition and failure to thrive. He is status post PEG tube placement POD 1. He is currently receiving tube feeds. Pain is somewhat controlled on MS Contin 15 mg by mouth twice a day along with MSIR 15 mg by mouth every 4 hours as needed for severe pain. His WBC count is 0.86 with ANC of 410. He is to receive a second dose of Granix today. Plans for swallow evaluation tomorrow as discussed with speech therapy. Objective - Vital Signs Vital signs: Vital Signs Temp 99.9 F H 05/16/22 15:06 Pulse 65 05/16/22 12:28 Resp 17 05/16/22 12:28 BP 120/69 05/16/22 12:28 Pulse Ox 96 05/16/22 12:28 FiO2 Intake & Output 05/15/22 05/16/22 05/16/22 18:59 06:59 18:59 Intake Total 350 40 Output Total 1100 800 Balance -750 40 -800 Weight 68.039 kg 86 kg Intake: IV 350 Tube Feeding 40 Output: Urine 1100 800 Other: Voiding Method Toilet Toilet # Voids 1 # Bowel Movements 0 - Labs CBC & Chem 7: 05/16/22 05:34 05/16/22 05:34 Labs: Abnormal Lab Results - Last 24 Hours (Table) 05/15/22 05/16/22 05/16/22 Range/Units 07:23 05:34 05:34 WBC 0.89 L* 0.86 L* (4.50-10.00) X 10*3/uL RBC 2.43 L 2.51 L (4.40-5.60) X 10*6/uL Hgb 7.5 L 7.8 L (13.0-17.0) g/dL Hct 23.5 L 23.9 L (39.6-50.0) % MCHC 31.9 L (32.0-37.0) g/dL RDW 16.5 H 16.5 H (11.5-14.5) % Plt Count 58 L 42 L (140-440) X 10*3/uL Plt Count Comment DECREASED A A Neutrophils # (Manual) 0 L* 0.41 L* (2.00-8.90) X 10*3/uL Lymphocytes # (Manual) 0.58 L 0.40 L (0.90-5.00) X 10*3/uL Monocytes # (Manual) 0 L 0.04 L (0.20-1.00) X 10*3/uL Eosinophils # (Manual) 0 L (0.04-0.35) X 10*3/uL Basophils # (Manual) 0.15 H (0.00-0.10) X 10*3/uL Immature Plt Fraction 7.5 H (1.1-6.1) % Glucose 127 H (70-110) mg/dL Calcium 8.0 L (8.7-10.3) mg/dL Total Bilirubin 1.70 H (0.30-1.20) mg/dL Total Protein 5.4 L (6.2-8.2) g/dL Albumin 3.0 L (3.8-4.9) g/dL Albumin/Globulin Ratio 1.25 L (1.60-3.17) g/dL
[2022-05-17] MEDS: MORPHINE SULFATE IR 15 MG TABLET PO PRN ×4 (00:51→15:23)
[2022-05-17] MEDS: PROCHLORPERAZINE INJ 10 MG/2 ML VIAL IVP PRN ×3 (00:52→16:43)
[2022-05-17] MEDS: ONDANSETRON 4 MG/2 ML VIAL IVP PRN ×2 (04:24→13:18)
[2022-05-17 05:47] LABS: Anisocytosis Slight; HCT 21.4 % (39.0-53.0); MCH 32.5 pg (25.0-35.0); MCHC 35.1 g/dL (31.0-37.0); MCV 92.4 fL (80.0-100.0); Poikilocytosis Slight; RBC 2.32 m/uL (4.30-5.90); RDW 16.5 % (11.5-15.5)
[2022-05-17 06:36] LABS: WBC 0.5 k/uL (3.8-10.6)
[2022-05-17 06:37] LABS: HGB 7.5 gm/dL (13.0-17.5)
[2022-05-17 06:38] LABS: Platelet Count 22 k/uL (150-450)
[2022-05-17] MEDS: PANTOPRAZOLE 40 MG/10 ML VIAL IV SCH (10:01)
[2022-05-17] MEDS: carvediloL 6.25 MG TAB PO SCH ×2 (10:03→16:41)
[2022-05-17] MEDS: ACETAMINOPHEN TAB 325 MG TAB PO PRN ×2 (10:33→16:45)
[2022-05-17] MEDS: LACTULOSE 20 GM/30 ML CUP PO SCH ×2 (10:47→21:38)
[2022-05-17] MEDS: MORPHINE SULFATE ER 15 MG TABLET PO SCH (10:50)
--- NOTE | 2022-05-17 10:53 | P.PN ---
Subjective Progress Note Date: 05/17/22 CHIEF COMPLAINT: Esophageal cancer HISTORY OF PRESENT ILLNESS: Patient has history of esophageal cancer. Patient is status post PEG tube placement on 05/15/22. Tube feedings held yesterday due to increased nausea vomiting and abdominal bloating with pain. Patient was found to have evidence of urinary retention with Guzman catheter placed. Also evidence of symptomatic gallstones. Patient reports that his abdominal pain is less today. The nausea and vomiting is not as frequent. Guzman catheter with dark urine. He is having flatus. No bowel movement. Did have a low-grade temp of 100.2 this morning. WBC is 0.5 a should be 7.5 platelets 22. He's scheduled for a modified barium swallow study today. His tube feedings have been resumed. 2 P2 currently at 50 mL per hour. PHYSICAL EXAM: VITAL SIGNS: Reviewed GENERAL: Well-developed in no acute distress. HEENT: No sclera icterus. Extraocular movements grossly intact. Moist buccal mucosa. Head is atraumatic, normocephalic. Hears conversational speech. No nasal drainage. NECK: Supple without lymphadenopathy. CHEST: Non-labored respirations and equal bilateral excursions. CARDIOVASCULAR: Palpable 2+ radial pulses. ABDOMEN: Softer. Nondistended. Abdomen mild diffuse tenderness. But less than yesterday. PEG tube site clean dry and intact. MUSCULOSKELETAL: No clubbing or cyanosis. NEUROLOGIC: No focal or lateralizing signs. Cranial nerves II through XII grossly intact. PSYCH: Appropriate affect. Alert and oriented to person, place and time. SKIN: Well perfused. Good skin turgor. ASSESSMENT: 1. Esophageal cancer 2. Gallstones with chronic cholecystitis 3. Pancytopenia due to recent chemotherapy 4. Esophageal spasm 5. Urinary retention with lower abdominal pain improved PLAN: -Continue tube feedings -Patient has symptomatic gallstones and due to recent chemotherapy surgical intervention is not prohibited at this time -Patient has esophageal spasm sensitive to temperatures extremes including cold. Patient advised to drink warm or room temperature fluids. -Continue to monitor -Continue antiemetics as needed -Continue supportive care Physician Rope Maker note has been reviewed by physician. Signing provider agrees with the documented findings, assessment, and plan of care. Objective - Vital Signs Vital signs: Vital Signs Temp 100.2 F H 05/17/22 07:32 Pulse 70 05/17/22 07:32 Resp 18 03/31/23 07:32 BP 127/74 05/17/22 07:32 Pulse Ox 96 05/17/22 07:32 FiO2 Intake & Output 05/16/22 05/17/22 05/17/22 18:59 06:59 18:59 Intake Total 240 Output Total 1425 550 Balance -1425 -310 Weight 84.5 kg Intake: Oral 240 Output: Urine 1425 550 Other: Voiding Method Toilet Toilet Indwelling Catheter Indwelling Catheter - Labs CBC & Chem 7: 05/17/22 05:22 05/16/22 05:34 Labs: Abnormal Lab Results - Last 24 Hours (Table) 05/16/22 05/16/22 05/17/22 Range/Units 05:34 05:34 05:22 WBC 0.86 L* 0.5 L* (4.50-10.00) X 10*3/uL RBC 2.51 L 2.32 L (4.40-5.60) X 10*6/uL Hgb 7.8 L 7.5 L D (13.0-17.0) g/dL Hct 23.9 L 21.4 L (39.6-50.0) % RDW 16.5 H 16.5 H (11.5-14.5) % Plt Count 42 L 22 L D (140-440) X 10*3/uL Plt Count Comment A Neutrophils # (Manual) 0.41 L* (2.00-8.90) X 10*3/uL Lymphocytes # (Manual) 0.40 L (0.90-5.00) X 10*3/uL Monocytes # (Manual) 0.04 L (0.20-1.00) X 10*3/uL Eosinophils # (Manual) 0 L (0.04-0.35) X 10*3/uL Immature Plt Fraction 7.5 H (1.1-6.1) % Glucose 127 H (70-110) mg/dL Calcium 8.0 L (8.7-10.3) mg/dL Total Bilirubin 1.70 H (0.30-1.20) mg/dL Total Protein 5.4 L (6.2-8.2) g/dL Albumin 3.0 L (3.8-4.9) g/dL Albumin/Globulin Ratio 1.25 L (1.60-3.17) g/dL
[2022-05-17] MEDS: amLODIPine 5 MG TAB PO SCH (10:54)
--- NOTE | 2022-05-17 10:54 | FL ---
EXAMINATION TYPE: FL barium swallow w video DATE OF EXAM: 05/17/2022 MODIFIED SWALLOW / DEGLUTITION STUDY CLINICAL HISTORY: Dysphagia. History of esophageal cancer and recent PEG tube. TECHNIQUE: Deglutition study is performed utilizing thin liquid barium, thick applesauce, and barium coated cracker. 15 seconds of fluoro time and 0 images obtained. COMPARISON: None. FINDINGS: Limited quantities tested. The oral and pharyngeal phases show satisfactory initiation and propagation with all modalities tested. Satisfactory mastication. There is no evidence of penetratio n or aspiration with any modality tested. No significant pharyngeal residue was appreciated. IMPRESSION: No penetration or aspiration observed. Please refer to speech therapist notes for further details if necessary.
[2022-05-17] MEDS ORDERED: FILGRASTIM-SNDZ 480 MCG/0.8 ML SYRINGE SQ STA (12:35)
[2022-05-17 13:29] LABS: Appearance,Urine Clear (Clear); Bilirubin,Urine 1+ (Negative); Blood,Urine Negative (Negative); Color,Urine Orange; Glucose,Urine (UA) Trace (Negative); Ketones,Urine Negative (Negative); Leukocyte Esterase,Urine Negative (Negative); Mucus,Urine Occasional /hpf; Nitrite,Urine Negative (Negative); PH, Urine 6.5 (5.0-8.0); Protein,Urine 1+ (Negative); RBC,Urine 2 /hpf (0-5); Specific Gravity,Urine 1.023 (1.001-1.035); Squamous Epithelial Cell,Urine <1 /hpf (0-4); Urobilinogen,Urine >12.0 mg/dL (<2.0); WBC,Urine 4 /hpf (0-5)
--- NOTE | 2022-05-17 14:26 | P.PN ---
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 Wells with last chemotherapy treatment being 05/08/22. Patient presented to [facility] emergency department secondary to weakness resulting from intractable nausea, vomiting, and diarrhea 24 hours. Patient reports since beginning chemotherapy patient has lost well over 20 pounds and upon further chart review patient's documented weight on 04/22/22 with 87 kg and upon arrival to our facility today patient's weight was 68.039 kg which is a documented 18.96 kg or 41.7 pound weight loss in 20 days. Patient is requesting a PEG tube placement during this admission to ensure he is able to have some form of intake prior to continuing on with chemotherapy. Initial CBC completed revealing leukocytosis with WBC count of 12.6. BMP revealing prerenal azotemia with BUN of 26. Liver profile revealing elevated total bili of 2.8 which appears to be chronically elevated dating back as far as 2019. Lactic acid elevated at 3.4. Troponin 0.029. EKG completed revealing a dual paced rhythm at 72 bpm. Chest x-ray completed and personally reviewed, lungs appear clear with pacemaker in place to left anterior chest and no signs of acute cardiopulmonary process. Patient is being admitted under our services to general medical unit with consultation to oncology and general surgery. Patient is now status post EGD and PEG tube placement. Patient seen and examined at bedside. No acute events overnight. He reports abdominal pain at the side of PEG tube. Pain is 8/10 in severity. Her reports nausea but no vomiting. He denies any chest pain, shortness breath or palpitations. Tmax of 100.2F. General: nontoxic, no distress, appears at stated age Derm: warm, dry Head: atraumatic, normocephalic, symmetric Eyes: EOMI, no lid lag, anicteric sclera Mouth: no lip lesion, mucus membranes moist Cardiovascular: S1S2 reg, systolic murmur Lungs: CTA bilateral, no rhonchi, no rales , no accessory muscle use Abdominal: soft, nontender to palpation, no guarding, no appreciable organom egaly, PEG tube site assaying appears clean, dry, intact Ext: no gross muscle atrophy, no edema, no contractures Neuro: no focal neuro deficits Psych: Alert, oriented, appropriate affect Dysphagia status post PEG tube placement Severe protein calorie malnutrition 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 I have reviewed the following independent marketing consultant notes: Surgery note 05/17, continue tube feed, supportive care I have reviewed the results of the following tests: CBC shows WBC count of 0.5, hemoglobin 7.5 and platelet count of 22. I have ordered the following tests: CBC ordered for tomorrow morning. I have discussed the care of this patient with the following independent historian: None. I have independently interpreted the following test below: None. I have discussed the management of this patient with the following physician: None. This patient has a moderate risk of morbidity due to the following reasons: Patient has a chronic diagnosis of dysphagia secondary to esophageal carcinoma leading to severe protein calorie malnutrition and failure to thrive. He is status post PEG tube placement POD 1. He is currently receiving tube feeds. Pain is somewhat controlled on MS Contin 15 mg by mouth twice a day along with MSIR 15 mg by mouth every 4 hours as needed for severe pain. His WBC count is 0.5. He is to receive a third dose of Granix today. Cefepime 2 g IV every 8 hours order by oncology along with chest x-ray. Patient is spiking low-grade fevers while being severely neutropenic. Start on IV antibiotics. Objective - Vital Signs Vital signs: Vital Signs Temp 99.1 F 05/17/22 13:09 Pulse 82 05/17/22 13:09 Resp 16 05/17/22 13:09 BP 97/65 05/17/22 13:09 Pulse Ox 97 05/17/22 13:09 FiO2 Intake & Output 05/16/22 05/17/22 05/17/22 18:59 06:59 18:59 Intake Total 240 Output Total 1425 550 Balance -1425 -310 Weight 84.5 kg Intake: Oral 240 Output: Urine 1425 550 Other: Voiding Method Toilet Toilet Indwelling Catheter Indwelling Catheter - Labs CBC & Chem 7: 05/17/22 05:22 05/16/22 05:34 Labs: Abnormal Lab Results - Last 24 Hours (Table) 05/17/22 05/17/22 Range/Units 05:22 13:14 WBC 0.5 L* (3.8-10.6) k/uL RBC 2.32 L (4.30-5.90) m/uL Hgb 7.5 L D (13.0-17.5) gm/dL Hct 21.4 L (39.0-53.0) % RDW 16.5 H (11.5-15.5) % Plt Count 22 L D (150-450) k/uL Urine Protein 1+ H (Negative) Urine Glucose (UA) Trace H (Negative) Urine Bilirubin 1+ H (Negative) Urine Mucus Occasional H (None) /hpf
[2022-05-17] MEDS: CEFEPIME 2 GM in SODIUM CHLORIDE 0.9% 100 ML IVPB SCH ×2 (14:32→21:41)
--- NOTE | 2022-05-17 15:22 | P.PN ---
Subjective Progress Note Date: 05/17/22 Principal diagnosis: n/v/d Upon visit today patient is in bedside chair. He is s/p peg tube placement, reports pain at insertion site. Pain medications are helping control pain. Also reports persisting nausea but no vomiting, with improvement on antiemetics. Reports mild diarrhea. Pt has also been having low grade fevers over the last 48hrs. No other reported complaints at this time. Objective - Vital Signs Vital signs: Vital Signs Temp 99.1 F 05/17/22 13:09 Pulse 82 05/17/22 13:09 Resp 16 05/17/22 13:09 BP 97/65 05/17/22 13:09 Pulse Ox 97 05/17/22 13:09 FiO2 Intake & Output 05/16/22 05/17/22 05/17/22 18:59 06:59 18:59 Intake Total 240 Output Total 1425 550 Balance -1425 -310 Weight 84.5 kg Intake: Oral 240 Output: Urine 1425 550 Other: Voiding Method Toilet Toilet Indwelling Catheter Indwelling Catheter - Constitutional General appearance: Present: average body habitus, no acute distress - EENT Eyes: Present: anicteric sclerae, EOMI ENT: Present: hearing grossly normal - Respiratory Details: breathing is even and unlabored - Cardiovascular Details: skin warm and dry - Gastrointestinal Gastrointestinal Comment(s): tenderness surround peg tube insertion site, no LLQ tenderness present General gastrointestinal: Present: soft, tenderness - Integumentary Integumentary: Present: pale - Neurologic Neurologic Comment(s): grossly intact - Musculoskeletal Musculoskeletal: Present: generalized weakness - Psychiatric Psychiatric: Present: A&O x's 3, appropriate affect, intact judgment & insight - Labs CBC & Chem 7: 05/17/22 05:22 05/16/22 05:34 Labs: Abnormal Lab Results - Last 24 Hours (Table) 05/17/22 05/17/22 Range/Units 05:22 13:14 WBC 0.5 L* (3.8-10.6) k/uL RBC 2.32 L (4.30-5.90) m/uL Hgb 7.5 L D (13.0-17.5) gm/dL Hct 21.4 L (39.0-53.0) % RDW 16.5 H (11.5-15.5) % Plt Count 22 L D (150-450) k/uL Urine Protein 1+ H (Negative) Urine Glucose (UA) Trace H (Negative) Urine Bilirubin 1+ H (Negative) Urine Mucus Occasional H (None) /hpf - Imaging and Cardiology CT scan - abdomen: report reviewed CT scan - pelvis: report reviewed Assessment and Plan (1) Diarrhea Current Visit: Yes Status: Acute Code(s): R19.7 - DIARRHEA, UNSPECIFIED SNOMED Code(s): 51815347 (2) Small cell carcinoma of esophagus Current Visit: Yes Status: Acute Priority: Medium Code(s): C15.9 - MALIGNANT NEOPLASM OF ESOPHAGUS, UNSPECIFIED SNOMED Code(s): 171483524 (3) Leukopenia due to antineoplastic chemotherapy Current Visit: Yes Status: Acute Priority: Medium Code(s): D70.1 - AGRANULOCYTOSIS SECONDARY TO CANCER CHEMOTHERAPY; T45.1X5A - ADVERSE EFFECT OF ANTINEOPLASTIC AND IMMUNOSUP DRUGS, INIT SNOMED Code(s): 870072209 Plan: N/V/D: -Pt reports symptoms were progressing at home, despite taking home medications for nausea, and was unable to tolerate oral intake, causing dizziness and falls. -N/V have been waxing and waning suring admission. Will continue on zofran, compazine, and ativan prn for symptomatic management. -Imodium added for diarrhea. Diarrhea has improved -General surgery consulted. S/p Peg tube placement. Staffing Branch Manager also consulted -Barium swallow study revealed slight irregularity distal esophagus which could reflect the site of endoscopic proven esophageal carcinoma. No evidence for large mass or obstructive change. Small reducible hiatal hernia and mild gastroesophageal reflux noted -CT abdomen and pelvis revealed some thickening of the distal esophagus within the field of view. No suspicious metastatic disease identified. Clinical consideration for some mild diverticulitis in the left lower quadrant is recommended. Correlate for fecal impaction of the rectum. No obstruction is evident. -Will transition pt to oral pain medications and titrate to effective dose for pain control. Pt continues on morphine XR, and states morphine IR for breakthrough pain is working well to control pain. Will continue on current pain regimen. -Will add zyrexa to next chemo cycle for chemo-induced n/v. Instructed pt to d/c thorazine. Chemo-induced Luekopenia: -WBC 500, ANC 410 yesterday. Third dose of granix given for WBC support, with goal of ANC of at least 1000 -Intermittent low grade fever noted. Blood cultures, UA with reflex, c-diff studies/culture, and CXR ordered. Will start patient on empiric cefepime -Will continue to monitor counts Esophageal cancer: -Completed cycle 2 of carbo/etoposide on 05/08 -Plan to continue on carbo/etoposide, will consider dose reduction due to sever ity of side effects -Will schedule f/u with Dr Gideon Wells upon discharge before beginning next c ycle to reassess patient once fully recovered -Pt agreeable with POC Attests: I have performed H&P and developed impression and plan of care for patient, discussed with dictator. I agree with dictated note, documented as a scribe
--- NOTE | 2022-05-17 15:48 | XR ---
EXAMINATION TYPE: XR chest 2V DATE OF EXAM: 05/17/2022 COMPARISON: 05/12/2022 HISTORY: Neutropenia and fever TECHNIQUE: Frontal and lateral views of the chest are obtained. FINDINGS: Lungs are clear of consolidative or interstitial opacity. There has been interval development of tiny bilateral pleural effusions. There is no pneumothorax. Heart size normal pulmonary vasculature is not congested. There is a 2-lead cardiac pacemaker. The osseous structures are intact IMPRESSION: 1. Interval development tiny bilateral pleural effusions. 2. No airspace consolidation or abnormal interstitial opacity. 3. Normal heart size and normal pulmonary vasculature.
[2022-05-18] MEDS: MORPHINE SULFATE ER 15 MG TABLET PO SCH ×2 (00:39→09:02)
[2022-05-18] MEDS: CEFEPIME 2 GM in SODIUM CHLORIDE 0.9% 100 ML IVPB SCH ×2 (05:31→14:45)
[2022-05-18] MEDS: MORPHINE SULFATE IR 15 MG TABLET PO PRN (05:57)
[2022-05-18] MEDS: ONDANSETRON 4 MG/2 ML VIAL IVP PRN ×3 (05:57→20:37)
[2022-05-18 07:01] LABS: Anisocytosis Slight; Basophils % (A) 0 %; Eosinophils % (A) 4 %; Lymphocytes # (A) 0.3 k/uL (1.0-4.8); Lymphocytes % (A) 71 %; MCH 32.6 pg (25.0-35.0); MCHC 35.1 g/dL (31.0-37.0); MCV 92.8 fL (80.0-100.0); Mean Platelet Volume 10.7; Monocytes % (A) 5 %; Neutrophils % (A) 13 %; Poikilocytosis Slight; RBC 2.05 m/uL (4.30-5.90); RDW 16.5 % (11.5-15.5)
[2022-05-18 07:27] LABS: HGB 6.7 gm/dL (13.0-17.5)
[2022-05-18 07:30] LABS: Platelet Count 11 k/uL (150-450)
[2022-05-18 07:33] LABS: WBC 0.4 k/uL (3.8-10.6)
[2022-05-18] MEDS: carvediloL 6.25 MG TAB PO SCH (08:12)
[2022-05-18] MEDS: LACTULOSE 20 GM/30 ML CUP PO SCH ×2 (08:12→20:39)
[2022-05-18] MEDS: PANTOPRAZOLE 40 MG/10 ML VIAL IV SCH (09:01)
--- NOTE | 2022-05-18 09:38 | P.PN ---
Progress Note - Text Progress Note Date: 05/18/22 Patient is still. He has minimal complaints of abdominal pain. On exam vital signs appear stable. Abdomen soft. There is minimal tenderness. History of symptomatic lithiasis. Patient will continue medical management.
--- NOTE | 2022-05-18 11:06 | P.PN ---
Subjective Progress Note Date: 05/18/22 Patient is afebrile. He generalized weakness. He continues to have some discomfort at the PEG site insertion but is tolerating tube feeds well subjectively. He notes some small amounts of loose stools off and on. No obvious bleeding. Objective - Vital Signs Vital signs: Vital Signs Temp 97.8 F 05/18/22 08:00 Pulse 74 05/18/22 08:00 Resp 16 05/18/22 08:00 BP 99/61 05/18/22 08:00 Pulse Ox 96 05/18/22 08:00 FiO2 Intake & Output 05/17/22 05/18/22 05/18/22 18:59 06:59 18:59 Intake Total 680 1730 Output Total 500 150 Balance 180 1580 Weight 84.5 kg 84 kg Intake: Intake, IV Titration 200 200 Amount Cefepime 2 gm In Sodium 200 200 Chloride 0.9% 100 ml @ 25 mls/hr IVPB Q8HR@0600, 1400,2200 [facility] Rx#: [id number] Oral 750 Tube Feeding 780 Other 480 Output: Urine 500 150 Other: Voiding Method Toilet Toilet Indwelling Catheter Indwelling Catheter # Voids 0 - Constitutional General appearance: Present: no acute distress - EENT Eyes: Present: EOMI ENT: Present: hearing grossly normal, normal oropharynx - Respiratory Respiratory: bilateral: diminished - Cardiovascular Rhythm: regular Heart sounds: normal: S1, S2 - Gastrointestinal General gastrointestinal: Present: normal bowel sounds, soft Localized gastrointestinal: tender: epigastric periumbilical (On direct palpation over site of the PEG tube insertion) - Integumentary Integumentary: Present: normal - Neurologic Neurologic: Present: CNII-XII intact - Musculoskeletal Musculoskeletal: Present: generalized weakness, strength equal bilaterally - Psychiatric Psychiatric: Present: A&O x's 3, appropriate affect - Labs CBC & Chem 7: 05/18/22 06:36 05/16/22 05:34 Labs: Abnormal Lab Results - Last 24 Hours (Table) 05/17/22 05/18/22 Range/Units 13:14 06:36 WBC 0.4 L* (3.8-10.6) k/uL RBC 2.05 L (4.30-5.90) m/uL Hgb 6.7 L* (13.0-17.5) gm/dL Hct 19.0 L* (39.0-53.0) % RDW 16.5 H (11.5-15.5) % Plt Count 11 L* (150-450) k/uL Neutrophils # 0.1 L* (1.3-7.7) k/uL Lymphocytes # 0.3 L (1.0-4.8) k/uL Urine Protein 1+ H (Negative) Urine Glucose (UA) Trace H (Negative) Urine Bilirubin 1+ H (Negative) Urine Mucus Occasional H (None) /hpf Assessment and Plan (1) Pancytopenia due to antineoplastic chemotherapy Narrative/Plan: The patient continues to have severe pancytopenia. Case was discussed in detail with the admitting service. He is at his consuelo currently from his last chemotherapy. - Total WBC remained at 0.4. Continue G-CSF and antibiotics. Patient is afebrile. - . Counts were at 11. On careful evaluation, there appears to be no obvious bleeding. Therefore continue to monitor with plans to transfuse if crit drops below 10. He does develop any active bleeding, then the target platelet count would be 30-40. - Transfuse to keep hemoglobin greater than 7. 1 unit PRBC to be transfused today for hemoglobin of 6.7 - Would typically expect to start seeing some improvement in counts over the next 2-3 days. Current Visit: No Status: Acute Code(s): D61.810 - ANTINEOPLASTIC CHEMOTHERAPY INDUCED PANCYTOPENIA; T45.1X5A - ADVERSE EFFECT OF ANTINEOPLASTIC AND IMMUNOSUP DRUGS, INIT SNOMED Code(s): 755748610876759 (2) Small cell carcinoma of esophagus Narrative/Plan: Treatment is on hold until patient recovers in a satisfactory manner from his current issues. He'll most likely require dose modification, as well as upfront G-CSF support with the next cycle. Current Visit: Yes Status: Acute Priority: Medium Code(s): C15.9 - MALIGNANT NEOPLASM OF ESOPHAGUS, UNSPECIFIED SNOMED Code(s): 090335246 Plan: - Continue tube feeds - There was some concern for change in mentation yesterday. The patient however appears to be fairly normal today. He states that he just felt very tired and weak yesterday.
[2022-05-18] MEDS: amLODIPine 5 MG TAB PO SCH (11:14)
[2022-05-18] MEDS: ACETAMINOPHEN TAB 325 MG TAB PO PRN (12:19)
--- NOTE | 2022-05-18 14:05 | P.PN ---
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 Wells with last chemotherapy treatment being 05/08/22. Patient presented to [facility] emergency department secondary to weakness resulting from intractable nausea, vomiting, and diarrhea 24 hours. Patient reports since beginning chemotherapy patient has lost well over 20 pounds and upon further chart review patient's documented weight on 04/22/22 with 87 kg and upon arrival to our facility today patient's weight was 68.039 kg which is a documented 18.96 kg or 41.7 pound weight loss in 20 days. Patient is requesting a PEG tube placement during this admission to ensure he is able to have some form of intake prior to continuing on with chemotherapy. Initial CBC completed revealing leukocytosis with WBC count of 12.6. BMP revealing prerenal azotemia with BUN of 26. Liver profile revealing elevated total bili of 2.8 which appears to be chronically elevated dating back as far as 2019. Lactic acid elevated at 3.4. Troponin 0.029. EKG completed revealing a dual paced rhythm at 72 bpm. Chest x-ray completed and personally reviewed, lungs appear clear with pacemaker in place to left anterior chest and no signs of acute cardiopulmonary process. Patient is being admitted under our services to general medical unit with consultation to oncology and general surgery. Patient is now status post EGD and PEG tube placement. Patient seen and examined at bedside. No acute events overnight. He reports well controlled abdominal pain at the side of PEG tube. Her reports nausea but no vomiting. He denies any chest pain, shortness breath or palpitations. Tmax of 99.9F. General: nontoxic, no distress, appears at stated age Derm: warm, dry Head: atraumatic, normocephalic, symmetric Eyes: EOMI, no lid lag, anicteric sclera Mouth: no lip lesion, mucus membranes moist Cardiovascular: S1S2 reg, systolic murmur Lungs: CTA bilateral, no rhonchi, no rales , no accessory muscle use Abdominal: soft, nontender to palpation, no guarding, no appreciable organomegaly, PEG tube site assaying appears clean, dry, intact Ext: no gross muscle atrophy, no edema, no contractures Neuro: no focal neuro deficits Psych: Alert, oriented, appropriate affect Neutropenic fever Dysphagia status post PEG tube placement Severe protein calorie malnutrition 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 I have reviewed the following managed services sales consultant notes: Surgery note 05/18, continue tube feed, supportive care Oncology note 05/18, transfuse 1 unit PRBC, transfuse platelet if less than 10 I have reviewed the results of the following tests: CBC shows WBC count of 0.4, hemoglobin 6.7 and platelet count of 11. Chest x-ray showed no acute findings. I have ordered the following tests: CBC ordered for tomorrow morning. Agree with blood culture, stool culture, Giardia antigen, cryptosporidium antigen, C. diff ordered by oncology for workup of fever in the setting of severe neutropenia. I have discussed the care of this patient with the following independent historian: None. I have independently interpreted the following test below: None. I have discussed the management of this patient with the following physician: The case was discussed with Dr. Mendez with plans of transfusing 1 unit PRBC. No indication for platelet transfusion unless under 10 or signs of active bleeding. This patient has a moderate risk of morbidity due to the following reasons: Patient has a chronic diagnosis of dysphagia secondary to esophageal carcinoma leading to severe protein calorie malnutrition and failure to thrive. He is status post PEG tube placement POD 3. He is currently receiving tube feeds. Pain is well-controlled controlled on MS Contin 15 mg by mouth twice a day along with MSIR 15 mg by mouth every 4 hours as needed for severe pain. His WBC count is 0.4. He has received 3 dose of Granix. Cefepime 2 g IV every 8 hours order by oncology for neutropenic fever along with blood culture and stool studies. Objective - Vital Signs Vital signs: Vital Signs Temp 98.8 F 05/18/22 13:35 Pulse 70 05/18/22 13:35 Resp 16 05/18/22 13:35 BP 97/62 05/18/22 13:35 Pulse Ox 96 05/18/22 08:00 FiO2 Intake & Output 05/17/22 05/18/22 05/18/22 18:59 06:59 18:59 Intake Total 680 1730 310 Output Total 500 150 Balance 180 1580 310 Weight 84.5 kg 84 kg Intake: Intake, IV Titration 200 200 Amount Cefepime 2 gm In Sodium 200 200 Chloride 0.9% 100 ml @ 25 mls/hr IVPB Q8HR@0600, 1400,2200 [facility] Rx#: [id number] Oral 750 Tube Feeding 780 Blood Product 310 Rc Irr As1 Unit 310 [id number] Other 480 Output: Urine 500 150 Other: Voiding Method Toilet Toilet Indwelling Catheter Indwelling Catheter # Voids 0 - Labs CBC & Chem 7: 05/18/22 06:36 05/16/22 05:34 Labs: Abnormal Lab Results - Last 24 Hours (Table) 05/18/22 05/18/22 Range/Units 06:36 09:51 WBC 0.4 L* (3.8-10.6) k/uL RBC 2.05 L (4.30-5.90) m/uL Hgb 6.7 L* (13.0-17.5) gm/dL Hct 19.0 L* (39.0-53.0) % RDW 16.5 H (11.5-15.5) % Plt Count 11 L* (150-450) k/uL Neutrophils # 0.1 L* (1.3-7.7) k/uL Lymphocytes # 0.3 L (1.0-4.8) k/uL Crossmatch See Detail Microbiology - Last 24 Hours (Table) 05/18/22 05:50 Stool Culture - Preliminary Stool
[2022-05-19] MEDS: carvediloL 6.25 MG TAB PO SCH ×3 (01:22→17:44)
[2022-05-19] MEDS: MORPHINE SULFATE ER 15 MG TABLET PO SCH ×3 (01:25→21:17)
[2022-05-19] MEDS: CEFEPIME 2 GM in SODIUM CHLORIDE 0.9% 100 ML IVPB SCH ×4 (01:27→21:17)
[2022-05-19] MEDS: MORPHINE SULFATE IR 15 MG TABLET PO PRN ×2 (05:26→19:44)
[2022-05-19] MEDS: ONDANSETRON 4 MG/2 ML VIAL IVP PRN ×3 (05:59→23:58)
[2022-05-19] MEDS: amLODIPine 5 MG TAB PO SCH (08:59)
[2022-05-19] MEDS: PANTOPRAZOLE 40 MG/10 ML VIAL IV SCH (08:59)
[2022-05-19] MEDS: LACTULOSE 20 GM/30 ML CUP PO SCH ×2 (10:16→21:17)
[2022-05-19] MEDS: PROCHLORPERAZINE INJ 10 MG/2 ML VIAL IVP PRN ×2 (10:32→19:39)
--- NOTE | 2022-05-19 11:14 | P.PN ---
Progress Note - Text Progress Note Date: 05/19/22 Patient's complaints of nausea and abdominal distention. He is currently receiving tube feeds at goal. On exam vital signs are stable. Abdomen soft mildly distended. Dietary will adjust tube feed rate. Patient will have his tube feeds template and off.
[2022-05-19 11:27] LABS: Anisocytosis Slight; HCT 22.1 % (39.0-53.0); HGB 7.7 gm/dL (13.0-17.5); MCH 31.4 pg (25.0-35.0); MCHC 34.8 g/dL (31.0-37.0); MCV 90.2 fL (80.0-100.0); Mean Platelet Volume 8.5; Poikilocytosis Moderate; RBC 2.45 m/uL (4.30-5.90); RDW 16.9 % (11.5-15.5)
[2022-05-19 11:29] LABS: Platelet Count 10 k/uL (150-450); WBC 1.1 k/uL (3.8-10.6)
[2022-05-19 11:38] LABS: African American GFR (CKD) >90 (>60 ml/min/1.73 sqM); Anion Gap 4 mmol/L; Blood Urea Nitrogen 16 mg/dL (9-20); Calcium 7.1 mg/dL (8.4-10.2); Carbon Dioxide 30 mmol/L (22-30); Chloride 101 mmol/L (98-107); Glucose 163 mg/dL (74-99); Non-African American GFR(CKD) >90 (>60 ml/min/1.73 sqM); Sodium 135 mmol/L (137-145)
--- NOTE | 2022-05-19 11:41 | P.PN ---
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 Wells with last chemotherapy treatment being 05/08/22. Patient presented to [facility] emergency department secondary to weakness resulting from intractable nausea, vomiting, and diarrhea 24 hours. Patient reports since beginning chemotherapy patient has lost well over 20 pounds and upon further chart review patient's documented weight on 04/22/22 with 87 kg and upon arrival to our facility today patient's weight was 68.039 kg which is a documented 18.96 kg or 41.7 pound weight loss in 20 days. Patient is requesting a PEG tube placement during this admission to ensure he is able to have some form of intake prior to continuing on with chemotherapy. Initial CBC completed revealing leukocytosis with WBC count of 12.6. BMP revealing prerenal azotemia with BUN of 26. Liver profile revealing elevated total bili of 2.8 which appears to be chronically elevated dating back as far as 2019. Lactic acid elevated at 3.4. Troponin 0.029. EKG completed revealing a dual paced rhythm at 72 bpm. Chest x-ray completed and personally reviewed, lungs appear clear with pacemaker in place to left anterior chest and no signs of acute cardiopulmonary process. Patient is being admitted under our services to general medical unit with consultation to oncology and general surgery. Patient is now status post EGD and PEG tube placement. Patient seen and examined at bedside. No acute events overnight. He reports well controlled abdominal pain at the side of PEG tube. Her reports nausea and one episode of vomiting. Patient reports abdominal fullness from the tube feeds. General: nontoxic, no distress, appears at stated age Derm: warm, dry Head: atraumatic, normocephalic, symmetric Eyes: EOMI, no lid lag, anicteric sclera Mouth: no lip lesion, mucus membranes moist Cardiovascular: S1S2 reg, systolic murmur Lungs: CTA bilateral, no rhonchi, no rales , no accessory muscle use Abdominal: soft, nontender to palpation, no guarding, no appreciable organomegaly, PEG tube site appears clean, dry, intact Ext: no gross muscle atrophy, no edema, no contractures Neuro: no focal neuro deficits Psych: Alert, oriented, appropriate affect Neutropenic fever Dysphagia status post PEG tube placement Severe protein calorie malnutrition 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 I have reviewed the following center lead consultant notes: Surgery note 05/19, dietary will adjust tube feed rate. I have reviewed the results of the following tests: CBC shows WBC count of 1.1 and hemoglobin is 7.7 with platelet count of 10. Blood culture prelim negative at 24 hours. I have ordered the following tests: CBC ordered for tomorrow morning. Agree with blood culture, stool culture, Giardia antigen, cryptosporidium antigen, C. diff ordered by oncology for workup of fever in the setting of severe neutropenia. I have discussed the care of this patient with the following independent historian: None. I have independently interpreted the following test below: None. I have discussed the management of this patient with the following physician: None. This patient has a moderate risk of morbidity due to the following reasons: Patient has a chronic diagnosis of dysphagia secondary to esophageal carcinoma leading to severe protein calorie malnutrition and failure to thrive. He is status post PEG tube placement POD 4. He is currently receiving tube feeds. He reports abdominal fullness and nausea vomiting which is probably related to his tube feeds. Dietary will need to adjust the rates of his tube feed. Pain is well-controlled controlled on MS Contin 15 mg by mouth twice a day along with MSIR 15 mg by mouth every 4 hours as needed for severe pain. His WBC count is 1.1. He has received 3 dose of Granix. Cefepime 2 g IV every 8 hours order by oncology for neutropenic fever along with blood culture and stool studies which is currently pending. His hemoglobin is improved to 7.7 after 1 unit PRBC on 05/18. His platelet count is 10 today and he has no active signs of bleeding. We will defer decision for platelet transfusion to hematology. Nursing instructed to discontinue Guzman catheter and attempt a voiding trial. Anticipated discharge home in the next 1-2 days. Objective - Vital Signs Vital signs: Vital Signs Temp 99.2 F 05/19/22 07:45 Pulse 82 05/19/22 09:03 Resp 14 05/19/22 07:45 BP 120/68 05/19/22 09:03 Pulse Ox 97 05/19/22 07:45 FiO2 Intake & Output 05/18/22 05/19/22 05/19/22 18:59 06:59 18:59 Intake Total 310 Output Total 1200 Balance 310 -1200 Weight 81 kg Intake: Blood Product 310 Rc Irr As1 Unit 310 [id number] Output: Urine 1200 Other: # Bowel Movements 1 - Labs CBC & Chem 7: 05/19/22 10:15 05/16/22 05:34 Labs: Abnormal Lab Results - Last 24 Hours (Table) 05/18/22 05/19/22 Range/Units 09:51 10:15 WBC 1.1 L* (3.8-10.6) k/uL RBC 2.45 L (4.30-5.90) m/uL Hgb 7.7 L (13.0-17.5) gm/dL Hct 22.1 L (39.0-53.0) % RDW 16.9 H (11.5-15.5) % Plt Count 10 L* (150-450) k/uL Crossmatch See Detail Microbiology - Last 24 Hours (Table) 05/17/22 15:18 Blood Culture - Preliminary Blood No Growth after 24 hours 05/18/22 05:50 Stool Culture - Preliminary Stool
[2022-05-19 12:12] LABS: Lymphocytes # (M) 0.75 k/uL (1.0-4.8); Monocytes # (M) 0.11 k/uL (0-1.0); Neutrophils # (M) 0.24 k/uL (1.3-7.7); Neutrophils % (M) 22 %; Nucleated Red Blood Cells 0 /100 WBC (0-0); Total Cells Counted 100
[2022-05-19] MEDS: LORazepam 0.5 MG TAB PO PRN (19:44)
[2022-05-20] MEDS ORDERED: polyethylene glycoL 3350 17 GM POWD.PACK PO STA (00:03)
[2022-05-20] MEDS ORDERED: NA PHOS,M-B/NA PHOS,DI-BA 133 ML ENEMA RECTAL ONE (00:30)
[2022-05-20] MEDS: MORPHINE SULFATE IR 15 MG TABLET PO PRN ×2 (02:49→12:25)
[2022-05-20] MEDS: PROCHLORPERAZINE INJ 10 MG/2 ML VIAL IVP PRN ×2 (02:59→21:09)
[2022-05-20 04:41] LABS: Anisocytosis Slight; HCT 22.6 % (39.0-53.0); HGB 7.7 gm/dL (13.0-17.5); MCHC 34.2 g/dL (31.0-37.0); MCV 90.8 fL (80.0-100.0); Mean Platelet Volume 13.1; Poikilocytosis Moderate; RBC 2.49 m/uL (4.30-5.90); RDW 16.9 % (11.5-15.5); WBC 1.7 k/uL (3.8-10.6)
[2022-05-20 04:42] LABS: Platelet Count 12 k/uL (150-450)
[2022-05-20] MEDS: CEFEPIME 2 GM in SODIUM CHLORIDE 0.9% 100 ML IVPB SCH (05:57)
[2022-05-20] MEDS: MORPHINE SULFATE ER 15 MG TABLET PO SCH ×2 (09:23→21:09)
[2022-05-20] MEDS: carvediloL 6.25 MG TAB PO SCH ×2 (09:24→22:00)
[2022-05-20] MEDS: LACTULOSE 20 GM/30 ML CUP PO SCH ×2 (09:24→21:10)
[2022-05-20] MEDS: METOCLOPRAMIDE 5 MG TAB PO SCH ×2 (09:24→17:21)
[2022-05-20] MEDS: amLODIPine 5 MG TAB PO SCH (09:24)
[2022-05-20] MEDS: PANTOPRAZOLE 40 MG/10 ML VIAL IV SCH (09:25)
--- NOTE | 2022-05-20 11:39 | P.PN ---
Subjective Progress Note Date: 05/20/22 CHIEF COMPLAINT: Esophageal cancer HISTORY OF PRESENT ILLNESS: Patient has history of esophageal cancer. Patient is status post PEG tube placement on 05/15/22. 2 feeds have been running at 68 mL per hour. Patient does report some nausea and vomiting. However the emesis is smaller amount and less frequent. Medicine service did add Reglan. Patient did have a small bowel movement after the enema yesterday. Reports improvement in his abdominal pain. He is still having issues with urinary retention. There is a staff did report the patient had a small bowel movement today that had dark red blood noted. WBC is 1.7 Hgb 7.7 platelets 12. Afebrile. PHYSICAL EXAM: VITAL SIGNS: Reviewed GENERAL: Well-developed in no acute distress. HEENT: No sclera icterus. Extraocular movements grossly intact. Moist buccal mucosa. Head is atraumatic, normocephalic. Hears conversational speech. No nasal drainage. NECK: Supple without lymphadenopathy. CHEST: Non-labored respirations and equal bilateral excursions. CARDIOVASCULAR: Palpable 2+ radial pulses. ABDOMEN: Softer. Nondistended. PEG tube site clean dry and intact. Minimal tenderness with palpation MUSCULOSKELETAL: No clubbing or cyanosis. NEUROLOGIC: No focal or lateralizing signs. Cranial nerves II through XII grossly intact. PSYCH: Appropriate affect. Alert and oriented to person, place and time. SKIN: Well perfused. Good skin turgor. ASSESSMENT: 1. Esophageal cancer 2. Gallstones with chronic cholecystitis 3. Pancytopenia due to recent chemotherapy 4. Esophageal spasm 5. Urinary retention with lower abdominal pain improved PLAN: -Continue tube feedings -Patient has symptomatic gallstones and due to recent chemotherapy surgical intervention is not prohibited at this time -Continue to monitor for any signs or symptoms of bleeding -Continue to monitor for urinary retention -Continue antiemetics as needed -Continue supportive care -Encouraged patient to increase activity level Physician Senior Director Of [employer] note has been reviewed by physician. Signing provider agrees with the documented findings, assessment, and plan of care. Objective - Vital Signs Vital signs: Vital Signs Temp 98.4 F 05/20/22 07:28 Pulse 62 05/20/22 07:28 Resp 18 05/20/22 07:28 BP 112/72 05/20/22 07:28 Pulse Ox 98 05/20/22 07:28 FiO2 Intake & Output 05/19/22 05/20/22 05/20/22 18:59 06:59 18:59 Intake Total 916 Output Total 950 560 Balance -34 -560 Weight 85.5 kg Intake: Intake, IV Titration 100 Amount Cefepime 2 gm In Sodium 100 Chloride 0.9% 100 ml @ 25 mls/hr IVPB Q8HR@0600, 1400,2200 [facility] Rx#: [id number] Oral 0 Tube Feeding 816 Output: Urine 950 560 Straight 560 Other: # Bowel Movements 1 - Labs CBC & Chem 7: 05/20/22 03:42 05/19/22 10:15 Labs: Abnormal Lab Results - Last 24 Hours (Table) 05/19/22 05/19/22 05/20/22 Range/Units 10:15 10:15 03:42 WBC 1.1 L* 1.7 L (3.8-10.6) k/uL RBC 2.45 L 2.49 L (4.30-5.90) m/uL Hgb 7.7 L 7.7 L (13.0-17.5) gm/dL Hct 22.1 L 22.6 L (39.0-53.0) % RDW 16.9 H 16.9 H (11.5-15.5) % Plt Count 10 L* 12 L* (150-450) k/uL Neutrophils # (Manual) 0.24 L* (1.3-7.7) k/uL Lymphocytes # (Manual) 0.75 L (1.0-4.8) k/uL Sodium 135 L (137-145) mmol/L Creatinine 0.48 L (0.66-1.25) mg/dL Glucose 163 H (74-99) mg/dL Calcium 7.1 L (8.4-10.2) mg/dL Microbiology - Last 24 Hours (Table) 05/18/22 05:50 Stool Culture - Preliminary Stool 05/17/22 15:18 Blood Culture - Preliminary Blood No Growth after 48 hours
[2022-05-20] MEDS: TAMSULOSIN 0.4 MG CAP.ER.24H PO SCH ×2 (12:23→21:09)
--- NOTE | 2022-05-20 13:55 | P.PN ---
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 Wells with last chemotherapy treatment being 05/08/22. Patient presented to [facility] emergency department secondary to weakness resulting from intractable nausea, vomiting, and diarrhea 24 hours. Patient reports since beginning chemotherapy patient has lost well over 20 pounds and upon further chart review patient's documented weight on 04/22/22 with 87 kg and upon arrival to our facility today patient's weight was 68.039 kg which is a documented 18.96 kg or 41.7 pound weight loss in 20 days. Patient is requesting a PEG tube placement during this admission to ensure he is able to have some form of intake prior to continuing on with chemotherapy. Initial CBC completed revealing leukocytosis with WBC count of 12.6. BMP revealing prerenal azotemia with BUN of 26. Liver profile revealing elevated total bili of 2.8 which appears to be chronically elevated dating back as far as 2019. Lactic acid elevated at 3.4. Troponin 0.029. EKG completed revealing a dual paced rhythm at 72 bpm. Chest x-ray completed and personally reviewed, lungs appear clear with pacemaker in place to left anterior chest and no signs of acute cardiopulmonary process. Patient is being admitted under our services to general medical unit with consultation to oncology and general surgery. Patient is now status post EGD and PEG tube placement. Patient was noted to be severely neutropenic as well as spiking fevers as high as 100.5 Fahrenheit. He was empirically started on cefepime IV and cultures were collected along with chest x-ray. Chest x-ray was negative for consolidation. Urinalysis was negative for leukocyte esterase or nitrite. C. diff was also negative. Blood cultures are currently negative at 48 hours. Stool cultures are preliminarily negative for Salmonella, Shigella or E. coli. Patient seen and examined at bedside. No acute events overnight. He reports well controlled abdominal pain at the side of PEG tube. He reports a liquid bloody bowel movement today. Patient continues to report abdominal fullness from the tube feeds. Nursing is noted urinary retention since removing his Guzman catheter yesterday which required straight cath 2. Nursing reports ur inary retention of 700 mL today so Guzman catheter was reinserted. General: nontoxic, no distress, appears at stated age Derm: warm, dry Head: atraumatic, normocephalic, symmetric Eyes: EOMI, no lid lag, anicteric sclera Mouth: no lip lesion, mucus membranes moist Cardiovascular: S1S2 reg, systolic murmur Lungs: CTA bilateral, no rhonchi, no rales , no accessory muscle use Abdominal: soft, nontender to palpation, no guarding, no appreciable organomegaly, PEG tube site appears clean, dry, intact Ext: no gross muscle atrophy, no edema, no contractures Neuro: no focal neuro deficits Psych: Alert, oriented, appropriate affect Urinary retention Right red blood per rectum Neutropenic fever Dysphagia status post PEG tube placement Severe protein calorie malnutrition 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 I have reviewed the following telesales consultant notes: Surgery note 05/20, recommend no enemas or any medication placed rectally due to high risk of colon rupture from pancytopenia, continue to monitor for bloody stools. I have reviewed the results of the following tests: CBC shows WBC count of 1.7 and hemoglobin is 7.7 with platelet count of 12. Blood culture prelim negative at 48 hours. I have ordered the following tests: CBC ordered for tomorrow morning. Agree with blood culture, stool culture, Giardia antigen, cryptosporidium antigen, C. diff ordered by oncology for workup of fever in the setting of severe neutropenia. I have discussed the care of this patient with the following independent historian: None. I have independently interpreted the following test below: None. I have discussed the management of this patient with the following physician: None. This patient has a moderate risk of morbidity due to the following reasons: Patient has a chronic diagnosis of dysphagia secondary to esophageal carcinoma leading to severe protein calorie malnutrition and failure to thrive. He is status post PEG tube placement POD 5. He is currently receiving tube feeds. He reports abdominal fullness and nausea vomiting which is probably related to his tube feeds. Dietary has lowered the rates of his tube feed and Reglan has been added. Continue Protonix 40 mg IV daily. His hemoglobin is improved to 7.7 after 1 unit PRBC on 05/18. His platelet count is 12 today and he has had one episode of liquid bloody bowel movement. Defer decision for platelet transfusion to oncology. Patient has been retaining a significant amount of urine since Guzman catheter was discontinued. This required straight cath 2 yesterday. Today, his retaining 700 mL of urine. Guzman catheter has been reinserted and urology has been consulted. Patient will be started on Flomax 0.4 mg by mouth twice a day. Pain is well-controlled controlled on MS Contin 15 mg by mouth twice a day along with MSIR 15 mg by mouth every 4 hours as needed for severe pain. His WBC count is 1.7. He has received 3 dose of Granix. Cefepime 2 g IV every 8 hours order by oncology for neutropenic fever. Blood culture, UA, CXR stool culture, Giardia antigen, cryptosporidium antigen, C. diff are so far negative. He has been afebrile since 05/17. I will discontinue his cefepime today. Objective - Vital Signs Vital signs: Vital Signs Temp 98.9 F 05/20/22 12:48 Pulse 58 L 05/20/22 12:48 Resp 16 05/20/22 12:48 BP 127/75 05/20/22 12:48 Pulse Ox 97 05/20/22 12:48 FiO2 Intake & Output 05/19/22 05/20/22 05/20/22 18:59 06:59 18:59 Intake Total 916 Output Total 950 560 768 Balance -34 -560 -768 Weight 85.5 kg 85.5 kg Intake: Intake, IV Titration 100 Amount Cefepime 2 gm In Sodium 100 Chloride 0.9% 100 ml @ 25 mls/hr IVPB Q8HR@0600, 1400,2200 [facility] Rx#: [id number] Oral 0 Tube Feeding 816 Output: Urine 950 560 Straight 560 Post Void Residual 768 Other: # Bowel Movements 1 - Labs CBC & Chem 7: 05/20/22 03:42 05/19/22 10:15 Labs: Abnormal Lab Results - Last 24 Hours (Table) 05/20/22 Range/Units 03:42 WBC 1.7 L (3.8-10.6) k/uL RBC 2.49 L (4.30-5.90) m/uL Hgb 7.7 L (13.0-17.5) gm/dL Hct 22.6 L (39.0-53.0) % RDW 16.9 H (11.5-15.5) % Plt Count 12 L* (150-450) k/uL Microbiology - Last 24 Hours (Table) 05/18/22 05:50 Stool Culture - Preliminary Stool 05/17/22 15:18 Blood Culture - Preliminary Blood No Growth after 48 hours
--- NOTE | 2022-05-20 14:42 | P.GSCN ---
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 Wells with last chemotherapy treatment being 05/08/22. Patient present ed to the emergency department on with weakness resulting from intractable nausea, vomiting, and diarrhea 24 hours. t reports he fell 3 times and doesn't remember falling. Pt reports that he was experiencing n/v/d despite taking home medications, as well as decreased appetite. Patient has lost approx 40-50lbs since 01/08. Pt also reporting intermittent abdominal pain and low back pain. The patient has received antiemetics and swallow as well as IV hydration. General surgery was consulted for a PEG tube which was placed on 05/15/22. The patient has had urinary retention since the the surgery. Review of Systems - Constitutional Reports weakness, Reports weight loss, Denies chills, Denies fever - Cardiovascular Denies shortness of breath - Gastrointestinal Reports constipation, Reports diarrhea, Denies loss of appetite Past Medical History Past Medical History: Cancer, Hypertension Additional Past Medical History / Comment(s): esophageal cancer dx . History of Any Multi-Drug Resistant Organisms: None Reported Past Surgical History: Pacemaker Past Anesthesia/Blood Transfusion Reactions: No Reported Reaction Type of Cardiac Device: Permanent Pacemaker Device Placement Date:: 2020 Past Psychological History: No Psychological Hx Reported Smoking Status: Never smoker Past Alcohol Use History: None Reported Past Drug Use History: None Reported - Past Family History Mother Family Medical History: Hypertension Medications and Allergies Home Medications Medication Instructions Recorded Confirmed Type amLODIPine [Norvasc] 5 mg PO DAILY #30 tab 10/01/19 05/12/22 Rx carvediloL [Coreg] 6.25 mg PO BID 03/21/22 05/12/22 History Pantoprazole Sodium [Protonix] 40 mg PO DAILY #30 tab 03/23/22 05/12/22 Rx HYDROcodone/APAP 7.5-325MG [[place] 1 tab PO Q6HR PRN 03/30/22 05/12/22 History 7.5-325] Morphine Sulfate [Morphine Sulfate 15 mg PO BID 03/30/22 05/12/22 History ER] Ondansetron [Zofran] 4 mg PO Q4HR PRN #45 tab 04/08/22 05/12/22 Rx Acetaminophen Tab [Tylenol] 650 mg PO Q4HR PRN tab 04/09/22 05/12/22 Rx LORazepam [Ativan] 0.5 mg PO Q6H PRN 04/17/22 05/12/22 History Lidocaine Viscous 2% [Xylocaine 30 ml PO TID PRN 05/12/22 05/12/22 History Viscous] Prochlorperazine [Compazine] 10 mg PO Q6H PRN 05/12/22 05/12/22 History chlorproMAZINE [Thorazine] 10 mg PO Q6H PRN 05/12/22 05/12/22 History Allergies Allergy/AdvReac Type Severity Reaction Status Date / Time No Known Allergies Allergy Verified 05/12/22 16:09 Surgical - Exam Vital Signs Temp Pulse Resp BP Pulse Ox 98.4 F 99 18 113/75 98 05/12/22 12:41 05/12/22 12:41 05/12/22 12:41 05/12/22 12:41 05/12/22 12:41 General: Well developed, well nourished. No acute distress. Chronically ill appearing. Cachectic. HEENT: Head is atraumatic, normocephalic. Lungs: Respirations even and nonlabored. Abdomen/GI: Soft, non-distended. No guarding, rigidity, or abdominal tenderness. No flank tenderness. Tube site clean dry and intact. : No suprapubic tenderness. Guzman catheter present draining clear yellow urine. Skin: Warm and dry Neurologic: Alert and oriented 3, CN II-XII grossly intact. No focal deficits. Psychiatric: Appropriate mood and affect. Results - Labs 05/20/22 03:42 05/19/22 10:15 Abnormal Lab Results - Last 24 Hours (Table) 05/20/22 Range/Units 03:42 WBC 1.7 L (3.8-10.6) k/uL RBC 2.49 L (4.30-5.90) m/uL Hgb 7.7 L (13.0-17.5) gm/dL Hct 22.6 L (39.0-53.0) % RDW 16.9 H (11.5-15.5) % Plt Count 12 L* (150-450) k/uL Microbiology - Last 24 Hours (Table) 05/18/22 05:50 Stool Culture - Preliminary Stool 05/17/22 15:18 Blood Culture - Preliminary Blood No Growth after 48 hours - Imaging Abdominal x-ray: report reviewed CT scan - pelvis: report reviewed Assessment and Plan Assessment: The patient denies any history of kidney stones, bladder or renal cancer, or any urological surgeries. No history of BPH or recurrent UTIs. He denies any prior hematuria, dysuria, or urinary frequency. He reports having a strong stream and being able to empty his bladder completely prior to his PEG tube placement. The patient states that his catheter was removed after surgery and he has not been able to urinate since. He has been straight catheterized a couple of times. His PVR was 768ml this morning and a Guzman catheter was placed. He is afebrile and neutropenic with a WBC of 1.7. Serum creatinin 0.48, urinalysis not suggestive of infection. Abdomen/pelvis CT without contrast from 05/16/22 shows a normal-appearing prostate, no renal masses are evident. No hydronephrosis and no renal stones are identified. Urinary retention likely secondary to inactivity and anesthesia. Plan: - Continue Flomax, started 4/3 - Maintain Guzman catheter for 3-5 days - Increase activity Thank you for this consultation Impression and plan of care have been directed as dictated by the signing physician. Kaylee Vaca nurse practitioner acting as scribe for signing physician. Kaylee Vaca [facility] Palliative Care/Urology [facility] [id number] Email: [email or web address] I personally performed and participated in the history, physical, the decision making, I agree with the assessment and plan of [employer] BR[employer] ARTIST
--- NOTE | 2022-05-20 16:12 | P.PN ---
Subjective Progress Note Date: 05/20/22 Principal diagnosis: Intractable nausea, vomiting, diarrhea, on treatment for squamous cell esophageal carcinoma In follow-up today patient is tolerating tube feeds but feels very full, since PEG tube insertion-which did require sedation-patient has not been able to urinate on his own, he has not urinated since yesterday, he has been straight catheterized twice. Reports constipation, no BM since admission. No fever, nausea or vomiting. Objective - Vital Signs Vital signs: Vital Signs Temp 98.9 F 05/20/22 12:48 Pulse 58 L 05/20/22 12:48 Resp 16 05/20/22 12:48 BP 127/75 05/20/22 12:48 Pulse Ox 97 05/20/22 12:48 FiO2 Intake & Output 05/19/22 05/20/22 05/20/22 18:59 06:59 18:59 Intake Total 916 Output Total 757 703 6508 Balance -34 -560 -1668 Weight 85.5 kg 85.5 kg Intake: Intake, IV Titration 100 Amount Cefepime 2 gm In Sodium 100 Chloride 0.9% 100 ml @ 25 mls/hr IVPB Q8HR@0600, 1400,2200 [facility] Rx#: [id number] Oral 0 Tube Feeding 816 Output: Urine 950 560 900 Straight 560 Post Void Residual 768 Other: # Bowel Movements 1 - Constitutional General appearance: Present: average body habitus, cooperative, no acute distress - EENT Eyes: Present: anicteric sclerae, EOMI ENT: Present: hearing grossly normal - Respiratory Respiratory: bilateral: CTA - Cardiovascular Rhythm: regular - Peripheral edema leg Peripheral Edema: bilateral: None - Gastrointestinal Gastrointestinal Comment(s): PEG tube in situ, mild drainage on dressing General gastrointestinal: Present: decreased bowel sounds (Distant bowel sounds), distended, soft, tenderness (Mild, generalized) - Integumentary Integumentary: Present: normal - Neurologic Neurologic: Present: CNII-XII intact - Musculoskeletal Musculoskeletal: Present: strength equal bilaterally - Psychiatric Psychiatric: Present: A&O x's 3, appropriate affect, intact judgment & insight - Labs CBC & Chem 7: 05/20/22 03:42 05/19/22 10:15 Labs: Abnormal Lab Results - Last 24 Hours (Table) 05/20/22 Range/Units 03:42 WBC 1.7 L (3.8-10.6) k/uL RBC 2.49 L (4.30-5.90) m/uL Hgb 7.7 L (13.0-17.5) gm/dL Hct 22.6 L (39.0-53.0) % RDW 16.9 H (11.5-15.5) % Plt Count 12 L* (150-450) k/uL Microbiology - Last 24 Hours (Table) 05/18/22 05:50 Stool Culture - Preliminary Stool 05/17/22 15:18 Blood Culture - Preliminary Blood No Growth after 48 hours Assessment and Plan (1) Chemotherapy induced nausea and vomiting Current Visit: Yes Status: Acute Priority: High Code(s): R11.2 - NAUSEA WITH VOMITING, UNSPECIFIED; T45.1X5A - ADVERSE EFFECT OF ANTINEOPLASTIC AND IMMUNOSUP DRUGS, INIT SNOMED Code(s): 82938114 (2) Small cell carcinoma of esophagus Current Visit: Yes Status: Acute Priority: Medium Code(s): C15.9 - MALIGN ANT NEOPLASM OF ESOPHAGUS, UNSPECIFIED SNOMED Code(s): 115615200 (3) Pancytopenia due to antineoplastic chemotherapy Current Visit: Yes Status: Acute Priority: High Code(s): D61.810 - ANTINEOPLASTIC CHEMOTHERAPY INDUCED PANCYTOPENIA; T45.1X5A - ADVERSE EFFECT OF ANTINEOPLASTIC AND IMMUNOSUP DRUGS, INIT SNOMED Code(s): 624837583940111 Plan: Pancytopenia secondary to chemotherapy -Transfuse for hemoglobin less than 7 and platelets less than 10,000 unless patient is symptomatic. Hemoglobin 7.7 today, platelets 12,000, no transfusions today. Patient is received 2 doses of G-CSF. WBC is 1.7 today, Differential not performed. -CBC in the a.m. 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 Poor physical and hematological tolerance -Rescheduling next cycle of chemotherapy. -Follow-up with Medical Oncologist prior to resuming therapy. Primary Oncologist will determine any dose adjustments, addition of G-CSF Nausea, vomiting, diarrhea -Improvement in symptoms since admission. Continue supportive medications -No bowel movement since admission. Surgery following. Medications have been ordered to promote a bowel movement Dysphagia -Status post PEG insertion -Tolerating tube feedings -Did report "fullness", Reglan is ordered -Surgery following Urinary retention post anesthesia -Urology has seen patient attests: I seen and examined patient, performed H&P, developed impression and plan of care. Discussed with dictator. Agree with documentation, dictated as a scribe
[2022-05-20 17:08] LABS: Cryptosporidium Antigen Negative (Negative)
[2022-05-21] MEDS: MORPHINE SULFATE IR 15 MG TABLET PO PRN (00:49)
[2022-05-21 07:11] LABS: Anisocytosis Slight; HCT 20.3 % (39.0-53.0); HGB 7.1 gm/dL (13.0-17.5); MCH 31.7 pg (25.0-35.0); MCHC 34.9 g/dL (31.0-37.0); MCV 90.9 fL (80.0-100.0); Mean Platelet Volume 11.4; Poikilocytosis Slight; RBC 2.24 m/uL (4.30-5.90); RDW 16.9 % (11.5-15.5); WBC 1.7 k/uL (3.8-10.6)
[2022-05-21 07:50] LABS: Platelet Count 13 k/uL (150-450)
[2022-05-21] MEDS: carvediloL 6.25 MG TAB PO SCH ×2 (08:36→18:13)
[2022-05-21] MEDS: amLODIPine 5 MG TAB PO SCH (08:37)
[2022-05-21] MEDS: METOCLOPRAMIDE 5 MG TAB PO SCH ×2 (08:37→18:13)
[2022-05-21] MEDS: MORPHINE SULFATE ER 15 MG TABLET PO SCH ×2 (08:38→21:35)
[2022-05-21] MEDS: TAMSULOSIN 0.4 MG CAP.ER.24H PO SCH ×2 (08:39→21:35)
[2022-05-21] MEDS: PANTOPRAZOLE 40 MG/10 ML VIAL IV SCH (08:39)
[2022-05-21] MEDS: LACTULOSE 20 GM/30 ML CUP PO SCH ×2 (08:39→21:36)
[2022-05-21] MEDS: metroNIDAZOLE 250 MG TABLET PO SCH ×2 (09:05→15:24)
[2022-05-21] MEDS: PROCHLORPERAZINE INJ 10 MG/2 ML VIAL IVP PRN (09:52)
[2022-05-21 10:06] LABS: Eosinophils # (M) 0.02 k/uL (0-0.7); Monocytes # (M) 0.12 k/uL (0-1.0); Neutrophils # (M) 0.56 k/uL (1.3-7.7); Neutrophils % (M) 33 %; Nucleated Red Blood Cells 0 /100 WBC (0-0); Total Cells Counted 100
--- NOTE | 2022-05-21 10:38 | P.PN ---
Subjective Progress Note Date: 05/21/22 CHIEF COMPLAINT: New-onset abdominal pain HISTORY OF PRESENT ILLNESS: The patient is a 71-year-old male status post gastrostomy tube placement for esophageal cancer and intractable nausea. He has complaints of urinary retention. He denies abdominal pain at this time. He reports emesis with his meals and pills. He is tolerating tube feeds at 51 mL/hr. He reports passing gas and having bowel movements in his diaper. He is on lactulose. He is pancytopenic due to chemotherapy. ROS: No new chest pain. No productive sputum PHYSICAL EXAM: VITAL SIGNS: Reviewed CONSTITUTIONAL: Well developed and in no acute distress. EYES: Conjuctivae with mild sclera icterus. Extraocular movements grossly inta ct. HEAD, EARS, NOSE, THROAT: Moist buccal mucosa. Head is atraumatic, normocephalic. Hears conversational speech. No nasal drainage. RESPIRATORY: Non-labored respirations and equal bilateral excursions. CARDIOVASCULAR: Palpable 2+ radial pulses. ABDOMEN: Gastrostomy tube site clean dry and intact. Non-tender. No moderate gaseous distention. MUSCULOSKELETAL: No gross deformity of the lower extremities noted. No clubbing. No cyanosis. SKIN: Good skin turgor. Well perfused. NEUROLOGIC: Cranial nerves II through XII grossly intact. No focal or lateralizing signs. PSYCH: Appropriate affect. Alert and oriented to person, place and time. : Urine is clear. CLINICAL LABS: Reviewed. WBC less than 3.0. Hgb less than 8.0 ASSESSMENT: 1. Intractable nausea and vomiting 2. Gallstones with chronic cholecystitis 3. Esophageal cancer 4. Pancytopenia due to recent chemotherapy 5. Esophageal spasm 6. Urinary retention 7. Dysphagia PLAN: 1. Continue lactulose, however as needed 2. Antibiotics for risk of typhlitis 3. Avoid rectal insertion with enemas due to pancytopenia and expected increased risk for bleeding 4. Continue tube feeds 5. Recommend adjusting medication to liquid, crushed or cut due to esophageal spasms and dysphagia 6. Add Simethicone for gaseous distention Objective - Vital Signs Vital signs: Vital Signs Temp 98.9 F 05/21/22 08:00 Pulse 69 05/21/22 08:00 Resp 18 05/21/22 08:00 BP 133/65 05/21/22 08:00 Pulse Ox 97 05/21/22 08:00 FiO2 Intake & Output 05/20/22 05/21/22 05/21/22 18:59 06:59 18:59 Intake Total 540 Output Total 1668 950 Balance -1128 -950 Weight 85.5 kg 74.5 kg Intake: Oral 540 Output: Urine 900 950 Post Void Residual 768 Other: Voiding Method Indwelling Catheter - Labs CBC & Chem 7: 05/21/22 06:37 05/19/22 10:15 Labs: Abnormal Lab Results - Last 24 Hours (Table) 05/20/22 05/21/22 Range/Units 12:13 06:37 WBC 1.7 L (3.8-10.6) k/uL RBC 2.24 L (4.30-5.90) m/uL Hgb 7.1 L (13.0-17.5) gm/dL Hct 20.3 L (39.0-53.0) % RDW 16.9 H (11.5-15.5) % Plt Count 13 L* (150-450) k/uL Neutrophils # (Manual) 0.56 L (1.3-7.7) k/uL Stl Giardia Antigen Positive A (Negative) Microbiology - Last 24 Hours (Table) 05/18/22 05:50 Stool Culture - Final Stool 05/17/22 15:18 Blood Culture - Preliminary Blood No Growth after 72 hours
--- NOTE | 2022-05-21 11:27 | CDI ---
Documentation Clarification Form Date: 05/21/2022 10:58:05 AM From: Jackie Valdivia RN, CCDS Admit Date: 05/12/2022 4:13:00 PM Patient Name: Ede Mcneill Visit Number: [id number] Discharge Date: ATTENTION: The Clinical Documentation Specialists (CDI) and [facility] Coding Staff appreciate your assistance in clarifying documentation. Please respond to the clarification below the line at the bottom and electronically sign. The CDI & [facility] Coding staff will review the response and follow-up if needed. Please note: Queries are made part of the Legal Health Record. If you have any questions, please contact the author of this message via ITS. Dr. Anu Cat Urinary retention is documented in the progress notes starting on 05/16/2022 and the patient had a PEG tube placed on 05/15/2022. Additional clarification is requested regarding the relationship, if any, that exists between the diagnosis and the procedure. Patients Admitting Diagnosis: Distal esophageal cancer, intractable nausea vomiting, severe protein malnutrition. Post-Operative Diagnosis: Same Procedure performed: Esophagogastroduodenoscopy with percutaneous endoscopic gastrostomy tube placement. History/Risk Factors: Esophageal cancer on chemotherapy, Hypertension Clinical Indicators: 71-year-old male present with intractable nausea vomiting, diarrhea, distal esophageal cancer, and inadequate protein intake had PEG tube insertion on 05/15/22. He had moderate urinary retention with large, dilated bladder per nursing documentation. Guzman catheter was placed. 05/20 Urology consult: Patient denies any history of BPH or recent UTIs. He denies any prior hematuria, dysuria, or urinary frequency. He reports having a strong stream and being able to empty his bladder completely prior to his PEG tube placement. Urinary retention likely secondary to inactivity and anesthesia Treatment: Guzman Catheter for 3-5 days Flomax 0.4 MG PO BID Increase activity What relationship, if any, exists between the diagnosis of Urinary retention and the procedure? [ x ] Urinary retention is a complication of surgical procedure [ ] Urinary retention is an expected outcome of the surgical procedure [ ] Urinary retention is related to patients co-morbid condition(s) of [insert co-morbid ds] & not a complication of the procedure [ ] Other please specify ____ [ ] Unable to determine (Template Last Revised: April 2020) MTDD
[2022-05-21] MEDS: ONDANSETRON 4 MG/2 ML VIAL IVP PRN (12:10)
--- NOTE | 2022-05-21 12:57 | P.PN ---
Subjective Progress Note Date: 05/21/22 She continues to report nausea. Had episodes of emesis. Has not had a bowel movement today. Has some bloating. 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 Wells with last chemotherapy treatment being 05/08/22. Patient presented to the emergency department secondary to weakness resulting from intractable nausea, vomiting, and diarrhea 24 hours. Initial CBC completed revealing leukocytosis with WBC count of 12.6. BMP revealing prerenal azotemia with BUN of 26. Liver profile revealing elevated total bili of 2.8 which appears to be chronically elevated dating back as far as 2019. Lactic acid elevated at 3.4. Troponin 0.029. EKG completed revealing a dual paced rhythm at 72 bpm. Chest x- ray completed and personally reviewed, lungs appear clear with pacemaker in place to left anterior chest and no signs of acute cardiopulmonary process. Patient is being admitted under our services to general medical unit with consultation to oncology and general surgery. Patient is now status post EGD and PEG tube placement. Patient was noted to be severely neutropenic as well as spiking fevers as high as 100.5 Fahrenheit. He was empirically started on cefepime IV and cultures were collected along with chest x-ray. Chest x-ray was negative for consolidation. Urinalysis was negative for leukocyte esterase or nitrite. C. diff was also negative. Blood cultures are currently negative at 48 hours. Stool cultures are negative for Salmonella, Shigella or E. coli. Giardia stool antigen was positive, and patient was started on Flagyl. During hospitalization, nursing is noted urinary retention since removing his Coronado catheter yesterday which required straight cath 2. Nursing reports urinary retention of 700 mL today so Coronado catheter was reinserted. 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 Pancytopenia Hyperbilirubinemia Plan: Today, patient is afebrile, 133/65, heart rate 69, 97% on room air. CBC today shows white blood cell count of 1.7, absolute neutrophil count of 0.56, hemoglobin of 7.1, platelets of 13 Stool Giardia antigen is positive Stool cryptosporidium is negative C. diff is negative Ordered CBC, basic parabolic panel, magnesium for tomorrow Gen. surgery no reviewed, continue lactulose as needed, avoid rectal insertion with enemas due to pancytopenia, continue tube feeds, adjust medication to liquids, crushed or cut Urology no reviewed, they agree with Flomax, maintaining Coronado catheter, increasing activity Start Flagyl 250 mg every 8 hours Continue morphine 15 mg twice a day +15 mg every 4 hours when necessary Continue lactulose 30 mg twice a day Continue Flomax 0.4 mg twice a day Discontinue cefepime Patient is full code Objective - Vital Signs Vital signs: Vital Signs Temp 98.9 F 05/21/22 08:00 Pulse 69 05/21/22 08:00 Resp 18 05/21/22 08:00 BP 133/65 05/21/22 08:00 Pulse Ox 97 05/21/22 08:00 FiO2 Intake & Output 05/20/22 05/21/22 05/21/22 18:59 06:59 18:59 Intake Total 540 Output Total 1668 950 750 Balance -1128 -950 -750 Weight 85.5 kg 74.5 kg Intake: Oral 540 Output: Urine 900 950 750 Post Void Residual 768 Other: Voiding Method Indwelling Catheter Indwelling Catheter # Bowel Movements 1 - Labs CBC & Chem 7: 05/21/22 06:37 05/19/22 10:15 Labs: Abnormal Lab Results - Last 24 Hours (Table) 05/20/22 05/21/22 Range/Units 12:13 06:37 WBC 1.7 L (3.8-10.6) k/uL RBC 2.24 L (4.30-5.90) m/uL Hgb 7.1 L (13.0-17.5) gm/dL Hct 20.3 L (39.0-53.0) % RDW 16.9 H (11.5-15.5) % Plt Count 13 L* (150-450) k/uL Neutrophils # (Manual) 0.56 L (1.3-7.7) k/uL Stl Giardia Antigen Positive A (Negative) Microbiology - Last 24 Hours (Table) 05/18/22 05:50 Stool Culture - Final Stool 05/17/22 15:18 Blood Culture - Preliminary Blood No Growth after 72 hours
[2022-05-21] MEDS: LORazepam 0.5 MG TAB PO PRN (13:36)
[2022-05-21] MEDS ORDERED: FILGRASTIM-SNDZ 480 MCG/0.8 ML SYRINGE SQ STA (17:29)
--- NOTE | 2022-05-21 17:35 | P.PN ---
Subjective Progress Note Date: 05/21/22 Principal diagnosis: Intractable nausea, vomiting, diarrhea, on treatment for squamous cell esophageal carcinoma In follow-up today patient had a BM, abd is less bloated, he has nausea and vomiting despite numerous meds for the same. Reports that only a small amount of his emesis today was tube feeding. Objective - Vital Signs Vital signs: Vital Signs Temp 98.9 F 05/21/22 13:17 Pulse 60 05/21/22 13:17 Resp 20 05/21/22 13:17 BP 117/70 05/21/22 13:17 Pulse Ox 98 05/21/22 13:17 FiO2 Intake & Output 05/20/22 05/21/22 05/21/22 18:59 06:59 18:59 Intake Total 540 Output Total 1668 950 750 Balance -1128 -950 -750 Weight 85.5 kg 74.5 kg Intake: Oral 540 Output: Urine 900 950 750 Post Void Residual 768 Other: Voiding Method Indwelling Catheter Indwelling Catheter # Bowel Movements 1 - Constitutional General appearance: Present: average body habitus, cooperative, no acute distress - EENT Eyes: Present: anicteric sclerae, EOMI ENT: Present: hearing grossly normal - Respiratory Respiratory: bilateral: CTA - Cardiovascular Rhythm: regular Heart sounds: normal: S1, S2 Abnormal Heart Sounds: Absent: systolic murmur, diastolic murmur, rub, S3 Gallop, S4 Gallop, click, other - Peripheral edema leg Peripheral Edema: bilateral: None - Gastrointestinal General gastrointestinal: Present: decreased bowel sounds, soft, tenderness. Absent: absent bowel sounds, distended, hepatomegaly, hyperactive bowel sounds, normal bowel sounds, organomegaly, rigid, scaphoid, splenomegaly, umbilical hernia, ventral hernia - Integumentary Integumentary Comment(s): better color today - Neurologic Neurologic: Present: CNII-XII intact - Musculoskeletal Musculoskeletal: Present: strength equal bilaterally - Psychiatric Psychiatric: Present: A&O x's 3, appropriate affect, intact judgment & insight - Labs CBC & Chem 7: 05/21/22 06:37 05/19/22 10:15 Labs: Abnormal Lab Results - Last 24 Hours (Table) 05/20/22 05/21/22 Range/Units 12:13 06:37 WBC 1.7 L (3.8-10.6) k/uL RBC 2.24 L (4.30-5.90) m/uL Hgb 7.1 L (13.0-17.5) gm/dL Hct 20.3 L (39.0-53.0) % RDW 16.9 H (11.5-15.5) % Plt Count 13 L* (150-450) k/uL Neutrophils # (Manual) 0.56 L (1.3-7.7) k/uL Stl Giardia Antigen Positive A (Negative) Microbiology - Last 24 Hours (Table) 05/18/22 05:50 Stool Culture - Final Stool 05/17/22 15:18 Blood Culture - Preliminary Blood No Growth after 72 hours Assessment and Plan (1) Chemotherapy induced nausea and vomiting Current Visit: Yes Status: Acute Priority: High Code(s): R11.2 - NAUSEA WITH VOMITING, UNSPECIFIED; T45.1X5A - ADVERSE EFFECT OF ANTINEOPLASTIC AND IMMUNOSUP DRUGS, INIT SNOMED Code(s): 45093478 (2) Small cell carcinoma of esophagus Current Visit: Yes Status: Acute Priority: Medium Code(s): C15.9 - MALIGNANT NEOPLASM OF ESOPHAGUS, UNSPECIFIED SNOMED Code(s): 337631574 (3) Pancytopenia due to antineoplastic chemotherapy Current Visit: Yes Status: Acute Priority: High Code(s): D61.810 - ANTINEOPLASTIC CHEMOTHERAPY INDUCED PANCYTOPENIA; T45.1X5A - ADVERSE EFFECT OF ANTINEOPLASTIC AND IMMUNOSUP DRUGS, INIT SNOMED Code(s): 471281334926585 Plan: Pancytopenia secondary to chemotherapy -Transfuse for hemoglobin less than 7 and platelets less than 10,000 unless patient is symptomatic. Hemoglobin 7.1 today, platelets 13,000, no transfusions today. S/P 2 doses of G-CSF. WBC is 1.7 today, ANC 560. Dose of GCSF ordered for today, pt has giardia infection. -CBC in the a.m. 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 Poor physical and hematological tolerance -Rescheduling next cycle of chemotherapy. -Follow-up with Medical Oncologist prior to resuming therapy. Primary Oncologist will determine any dose adjustments, addition of G-CSF Nausea, vomiting, diarrhea -Improvement overall in symptoms since admission but, he cont to have N,V a few times a day despite significant number of supportive medications. Adjustments made. Assess pt daily -Finally had a BM today, pt reports improvement in abd distension and bloating -Giardia stool study positive Dysphagia -Status post PEG insertion -Tolerating tube feedings overall well -Surgery following Urinary retention post anesthesia -Urology has seen patient, coronado in place
[2022-05-21] MEDS ORDERED: polyethylene glycoL 3350 17 GM POWD.PACK PO PRN (17:36)
[2022-05-21] MEDS: OLANZapine 2.5 MG TAB PO SCH (21:35)
[2022-05-21] MEDS: SENNOSIDES-DOCUSATE SODIUM 1 EACH TAB PO SCH (21:36)
[2022-05-22] MEDS: metroNIDAZOLE 250 MG TABLET PO SCH ×3 (00:45→15:53)
[2022-05-22 08:05] LABS: African American GFR (CKD) >90 (>60 ml/min/1.73 sqM); Anion Gap 2 mmol/L; Blood Urea Nitrogen 11 mg/dL (9-20); Calcium 7.5 mg/dL (8.4-10.2); Carbon Dioxide 35 mmol/L (22-30); Chloride 99 mmol/L (98-107); Glucose 137 mg/dL (74-99); Non-African American GFR(CKD) >90 (>60 ml/min/1.73 sqM); Potassium 4.2 mmol/L (3.5-5.1); Sodium 136 mmol/L (137-145)
[2022-05-22 08:58] LABS: Anisocytosis Slight; Basophils % (A) 0 %; Eosinophils % (A) 1 %; HCT 20.9 % (39.0-53.0); HGB 7.3 gm/dL (13.0-17.5); Lymphocytes # (A) 0.9 k/uL (1.0-4.8); Lymphocytes % (A) 27 %; MCH 32.4 pg (25.0-35.0); MCV 92.4 fL (80.0-100.0); Mean Platelet Volume 11.6; Monocytes # (A) 0.2 k/uL (0-1.0); Monocytes % (A) 6 %; Neutrophils # (A) 2.2 k/uL (1.3-7.7); Neutrophils % (A) 63 %; Poikilocytosis Slight; RBC 2.26 m/uL (4.30-5.90); RDW 16.5 % (11.5-15.5); WBC 3.5 k/uL (3.8-10.6)
[2022-05-22] MEDS: METOCLOPRAMIDE 5 MG TAB PO SCH ×2 (08:58→16:32)
[2022-05-22] MEDS: carvediloL 6.25 MG TAB PO SCH ×3 (08:58→16:32)
[2022-05-22] MEDS: LACTULOSE 20 GM/30 ML CUP PO SCH ×2 (08:59→20:12)
[2022-05-22] MEDS: MORPHINE SULFATE ER 15 MG TABLET PO SCH ×2 (08:59→20:13)
[2022-05-22] MEDS: amLODIPine 5 MG TAB PO SCH ×2 (08:59→10:02)
[2022-05-22] MEDS: PANTOPRAZOLE 40 MG/10 ML VIAL IV SCH (09:04)
[2022-05-22] MEDS: TAMSULOSIN 0.4 MG CAP.ER.24H PO SCH ×2 (09:08→20:12)
[2022-05-22] MEDS: SENNOSIDES-DOCUSATE SODIUM 1 EACH TAB PO SCH ×2 (09:34→20:12)
[2022-05-22 10:03] LABS: Platelet Count 16 k/uL (150-450)
--- NOTE | 2022-05-22 11:13 | P.PN ---
Subjective Progress Note Date: 05/22/22 He continues to report nausea, but improved since he had his bowel movement. Patient feels less bloated today. Tolerating his tube feeds. 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 Wells with last chemotherapy treatment being 05/08/22. Patient presented to the emergency department secondary to weakness resulting from intractable nausea, vomiting, and diarrhea 24 hours. Initial CBC completed revealing leukocytosis with WBC count of 12.6. BMP revealing prerenal azotemia with BUN of 26. Liver profile revealing elevated total bili of 2.8 which appears to be chronically elevated dating back as far as 2019. Lactic acid elevated at 3.4. Troponin 0.029. EKG completed revealing a dual paced rhythm at 72 bpm. Chest x- ray completed and personally reviewed, lungs appear clear with pacemaker in place to left anterior chest and no signs of acute cardiopulmonary process. Patient is being admitted under our services to general medical unit with consultation to oncology and general surgery. Patient is now status post EGD and PEG tube placement. Patient was noted to be severely neutropenic as well as spiking fevers as high as 100.5 Fahrenheit. He was empirically started on cefepime IV and cultures were collected along with chest x-ray. Chest x-ray was negative for consolidation. Urinalysis was negative for leukocyte esterase or nitrite. C. diff was also negative. Blood cultures are currently negative at 48 hours. Stool cultures are negative for Salmonella, Shigella or E. coli. Giardia stool antigen was positive, and patient was started on Flagyl. During hospitalization, nursing is noted urinary retention since removing his Coronado catheter yesterday which required straight cath 2. Nursing reports urinary retention of 700 mL today so Coronado catheter was reinserted. 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 Pancytopenia Hyperbilirubinemia Plan: Today, patient is afebrile, 115/69, heart rate 67, 98% on room air CBC today shows improvement of white blood cell count 3.5, anemias 7.3 and stable, platelets of 16 Ordered CBC, basic parabolic panel, magnesium for tomorrow Continue Flagyl 250 mg every 8 hours Continue morphine 15 mg twice a day +15 mg every 4 hours when necessary Continue lactulose 30 mg twice a day Continue Flomax 0.4 mg twice a day Discontinue cefepime Patient is full code Objective - Vital Signs Vital signs: Vital Signs Temp 98.7 F 05/22/22 08:00 Pulse 65 05/22/22 09:51 Resp 18 05/22/22 09:51 BP 115/69 05/22/22 08:00 Pulse Ox 97 05/22/22 02:00 FiO2 Intake & Output 05/21/22 05/22/22 05/22/22 18:59 06:59 18:59 Intake Total 590 Output Total 975 2600 60 Balance -9760 Weight 86.5 kg Intake: Oral 590 Output: Urine 975 2600 60 Other: Voiding Method Indwelling Catheter Indwelling Catheter Indwelling Catheter # Bowel Movements 1 - Labs CBC & Chem 7: 05/22/22 06:51 05/22/22 06:51 Labs: Abnormal Lab Results - Last 24 Hours (Table) 05/22/22 05/22/22 Range/Units 06:51 06:51 WBC 3.5 L (3.8-10.6) k/uL RBC 2.26 L (4.30-5.90) m/uL Hgb 7.3 L (13.0-17.5) gm/dL Hct 20.9 L (39.0-53.0) % RDW 16.5 H (11.5-15.5) % Plt Count 16 L* (150-450) k/uL Lymphocytes # 0.9 L (1.0-4.8) k/uL Sodium 136 L (137-145) mmol/L Carbon Dioxide 35 H (22-30) mmol/L Creatinine 0.49 L (0.66-1.25) mg/dL Glucose 137 H (74-99) mg/dL Calcium 7.5 L (8.4-10.2) mg/dL Microbiology - Last 24 Hours (Table) 05/17/22 15:18 Blood Culture - Preliminary Blood No Growth after 96 hours 05/18/22 05:50 Stool Culture - Final Stool
[2022-05-22] MEDS: ONDANSETRON 4 MG/2 ML VIAL IVP PRN (12:28)
[2022-05-22 14:27] VITALS: BMI 27.3
--- NOTE | 2022-05-22 14:34 | P.PN ---
Subjective Progress Note Date: 05/22/22 CHIEF COMPLAINT: Esophageal cancer HISTORY OF PRESENT ILLNESS: Patient has history of esophageal cancer. Patient is status post PEG tube placement on 05/15/22. Tube feeds are running at 51ml/hr. no residual per nursing staff. Patient has some tenderness around PEG tube site. He is having bowel movements. He is having nausea and vomiting. He reports that it is better today than it has been. He was able to eat part of a doughnut and drinks some milk this morning for breakfast. Patient has Guzman catheter in place for urinary retention. Afebrile. WBC is 3.5 Hgb 7.3 and platelets are 16 PHYSICAL EXAM: VITAL SIGNS: Reviewed GENERAL: Well-developed in no acute distress. HEENT: No sclera icterus. Extraocular movements grossly intact. Moist buccal mucosa. Head is atraumatic, normocephalic. Hears conversational speech. No nasal drainage. NECK: Supple without lymphadenopathy. CHEST: Non-labored respirations and equal bilateral excursions. CARDIOVASCULAR: Palpable 2+ radial pulses. ABDOMEN: Softer. Nondistended. PEG tube site clean dry and intact. Minimal tenderness with palpation MUSCULOSKELETAL: No clubbing or cyanosis. NEUROLOGIC: No focal or lateralizing signs. Cranial nerves II through XII grossly intact. PSYCH: Appropriate affect. Alert and oriented to person, place and time. SKIN: Well perfused. Good skin turgor. ASSESSMENT: 1. Esophageal cancer 2. Gallstones with chronic cholecystitis 3. Pancytopenia due to recent chemotherapy 4. Esophageal spasm 5. Urinary retention 7. Intractable nausea and vomiting PLAN: -Continue tube feedings -Continue lactulose for constipation -Antibiotics for risk of typhlitis -Avoid rectal insertion with enemas due to pancytopenia and expected increased risk for bleeding Physician Laboratory Director note has been reviewed by physician. Signing provider agrees with the documented findings, assessment, and plan of care. Objective - Vital Signs Vital signs: Vital Signs Temp 98.7 F 05/22/22 08:00 Pulse 65 05/22/22 09:51 Resp 18 05/22/22 09:51 BP 115/69 05/22/22 08:00 Pulse Ox 97 05/22/22 02:00 FiO2 Intake & Output 05/21/22 05/22/22 05/22/22 18:59 06:59 18:59 Intake Total 590 Output Total 975 2600 60 Balance -97 Weight 86.5 kg Intake: Oral 590 Output: Urine 975 2600 60 Other: Voiding Method Indwelling Catheter Indwelling Catheter Indwelling Catheter # Bowel Movements 1 - Labs CBC & Chem 7: 05/22/22 06:51 05/22/22 06:51 Labs: Abnormal Lab Results - Last 24 Hours (Table) 05/22/22 05/22/22 Range/Units 06:51 06:51 WBC 3.5 L (3.8-10.6) k/uL RBC 2.26 L (4.30-5.90) m/uL Hgb 7.3 L (13.0-17.5) gm/dL Hct 20.9 L (39.0-53.0) % RDW 16.5 H (11.5-15.5) % Plt Count 16 L* (150-450) k/uL Lymphocytes # 0.9 L (1.0-4.8) k/uL Sodium 136 L (137-145) mmol/L Carbon Dioxide 35 H (22-30) mmol/L Creatinine 0.49 L (0.66-1.25) mg/dL Glucose 137 H (74-99) mg/dL Calcium 7.5 L (8.4-10.2) mg/dL Microbiology - Last 24 Hours (Table) 05/17/22 15:18 Blood Culture - Preliminary Blood No Growth after 96 hours
--- NOTE | 2022-05-22 14:34 | P.PN ---
Subjective Progress Note Date: 05/22/22 Principal diagnosis: Intractable nausea, vomiting, diarrhea, on treatment for squamous cell esophageal carcinoma In follow-up today Persistent nausea but, no vomiting, no bowel movement today, denies fever or abdominal pain. He did eat part of a muffin and drank some milk today. He is ambulating in the room. Objective - Vital Signs Vital signs: Vital Signs Temp 98.7 F 05/22/22 08:00 Pulse 65 05/22/22 09:51 Resp 18 05/22/22 09:51 BP 115/69 05/22/22 08:00 Pulse Ox 97 05/22/22 02:00 FiO2 Intake & Output 05/21/22 05/22/22 05/22/22 18:59 06:59 18:59 Intake Total 590 Output Total 975 2600 60 Balance - Weight 86.5 kg Intake: Oral 590 Output: Urine 975 2600 60 Other: Voiding Method Indwelling Catheter Indwelling Catheter Indwelling Catheter # Bowel Movements 1 - Constitutional General appearance: Present: average body habitus, cooperative, no acute distress - EENT Eyes: Present: anicteric sclerae, EOMI ENT: Present: hearing grossly normal - Respiratory Details: Respirations even and unlabored at rest - Peripheral edema leg Peripheral Edema: bilateral: None - Gastrointestinal Gastrointestinal Comment(s): PEG tube General gastrointestinal: Present: distended, soft - Integumentary Integumentary: Present: normal - Neurologic Neurologic: Present: CNII-XII intact - Musculoskeletal Musculoskeletal: Present: generalized weakness - Psychiatric Psychiatric: Present: A&O x's 3, appropriate affect, intact judgment & insight - Labs CBC & Chem 7: 05/22/22 06:51 05/22/22 06:51 Labs: Abnormal Lab Results - Last 24 Hours (Table) 05/22/22 05/22/22 Range/Units 06:51 06:51 WBC 3.5 L (3.8-10.6) k/uL RBC 2.26 L (4.30-5.90) m/uL Hgb 7.3 L (13.0-17.5) gm/dL Hct 20.9 L (39.0-53.0) % RDW 16.5 H (11.5-15.5) % Plt Count 16 L* (150-450) k/uL Lymphocytes # 0.9 L (1.0-4.8) k/uL Sodium 136 L (137-145) mmol/L Carbon Dioxide 35 H (22-30) mmol/L Creatinine 0.49 L (0.66-1.25) mg/dL Glucose 137 H (74-99) mg/dL Calcium 7.5 L (8.4-10.2) mg/dL Microbiology - Last 24 Hours (Table) 05/17/22 15:18 Blood Culture - Preliminary Blood No Growth after 96 hours Assessment and Plan (1) Chemotherapy induced nausea and vomiting Current Visit: Yes Status: Acute Priority: High Code(s): R11.2 - NAUSEA WITH VOMITING, UNSPECIFIED; T45.1X5A - ADVERSE EFFECT OF ANTINEOPLASTIC AND I MMUNOSUP DRUGS, INIT SNOMED Code(s): 80563615 (2) Small cell carcinoma of esophagus Current Visit: Yes Status: Acute Priority: Medium Code(s): C15.9 - MALIGNANT NEOPLASM OF ESOPHAGUS, UNSPECIFIED SNOMED Code(s): 579897878 (3) Pancytopenia due to antineoplastic chemotherapy Current Visit: Yes Status: Acute Priority: High Code(s): D61.810 - ANTINEOPLASTIC CHEMOTHERAPY INDUCED PANCYTOPENIA; T45.1X5A - ADVERSE EFFECT OF ANTINEOPLASTIC AND IMMUNOSUP DRUGS, INIT SNOMED Code(s): 478714367345651 Plan: Pancytopenia secondary to chemotherapy -CBC is showing stability today. Hemoglobin is 7.3, platelets 16,000. WBC 3.5, ANC 2200. Stability likely because of treatment of infection and patient as far enough out from chemotherapy that his counts would begin to recover. -CBC in the a.m. 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 Poor physical and hematological tolerance -Next cycle of chemotherapy on hold for now. -Follow-up with Medical Oncologist prior to resuming therapy, appt in Discharge plan. Primary Oncologist will determine any dose adjustments, addition of G-CSF Nausea, vomiting, diarrhea -Persistent nausea but no vomiting today. Based on patient complaints, we will increase Reglan dose, add scopolamine and review med list for any medications that can be held or discontinued for now. Assess pt daily -Semi-formed BM yesterday. No BM today. Abd distension and bloating Is mild at this time -Giardia stool study positive, Patient is on antibiotics for the same Dysphagia -Status post PEG insertion -Tolerating tube feedings overall well -He did tolerate some solid food and milk today. Patient is to eat what he can tolerate -Surgery following Urinary retention post anesthesia -Urology has seen patient, coronado in place
[2022-05-22] MEDS ORDERED: SCOPOLAMINE 1 MG/72 HR PATCH TRANSDERM SCH (15:00)
[2022-05-22] MEDS: MORPHINE SULFATE IR 15 MG TABLET PO PRN (15:53)
[2022-05-22] MEDS: OLANZapine 2.5 MG TAB PO SCH (20:13)
[2022-05-23] MEDS: metroNIDAZOLE 250 MG TABLET PO SCH ×2 (00:38→08:11)
[2022-05-23 07:36] VITALS: RESP 17
[2022-05-23] MEDS: amLODIPine 5 MG TAB PO SCH (08:11)
[2022-05-23] MEDS: SENNOSIDES-DOCUSATE SODIUM 1 EACH TAB PO SCH (08:11)
[2022-05-23] MEDS: MORPHINE SULFATE ER 15 MG TABLET PO SCH (08:11)
[2022-05-23] MEDS: PANTOPRAZOLE 40 MG/10 ML VIAL IV SCH (08:13)
[2022-05-23] MEDS: LACTULOSE 20 GM/30 ML CUP PO SCH (08:13)
[2022-05-23] MEDS: TAMSULOSIN 0.4 MG CAP.ER.24H PO SCH (08:13)
[2022-05-23] MEDS: ONDANSETRON 4 MG/2 ML VIAL IVP PRN ×2 (08:14→13:55)
[2022-05-23] MEDS: METOCLOPRAMIDE 5 MG TAB PO SCH (08:18)
[2022-05-23] MEDS: carvediloL 6.25 MG TAB PO SCH (08:18)
--- NOTE | 2022-05-23 10:53 | P.DS ---
Providers Date of admission: 05/12/22 16:13 Expected date of discharge: 05/23/22 Attending physician: Ari Erickson MD Consults: 05/12/22 16:13 Consult Physician Urgent Consulting Provider: Javier Wells Consult Reason/Comments: esophageal cancer on chemo Do you want consulting provider notified?: Yes Consult Physician Urgent Consulting Provider: Kaylynn Womack Consult Reason/Comments: failure to thrive, anorexia, peg tube placement Do you want consulting provider notified?: Yes 05/20/22 11:40 Consult Physician Stat Consulting Provider: Lloyd Chris Consult Reason/Comments: Urinary retention Do you want consulting provider notified?: Yes [facility]: 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 Wells with last chemotherapy treatment being 05/08/22. Patient presented to the emergency department secondary to weakness resulting from intractable nausea, vomiting, and diarrhea 24 hours. Initial CBC completed revealing leukocytosis with WBC count of 12.6. BMP revealing prerenal azotemia with BUN of 26. Liver profile revealing elevated total bili of 2.8 which appears to be chronically elevated dating back as far as 2019. Lactic acid elevated at 3.4. Troponin 0.029. EKG completed revealing a dual paced rhythm at 72 bpm. Chest x- ray completed and personally reviewed, lungs appear clear with pacemaker in place to left anterior chest and no signs of acute cardiopulmonary process. Patient is being admitted under our services to general medical unit with consultation to oncology and general surgery. Patient is now status post EGD and PEG tube placement. Patient was noted to be severely neutropenic as well as spiking fevers as high as 100.5 Fahrenheit. He was empirically started on cefepime IV and cultures were collected along with chest x-ray. Chest x-ray was negative for consolidation. Urinalysis was negative for leukocyte esterase or nitrite. C. diff was also negative. Blood cultures are currently negative at 48 hours. Stool cultures are negative for Salmonella, Shigella or E. coli. Giardia stool antigen was positive, and patient was started on Flagyl. During hospitalization, nursing is noted urinary retention since removing his Coronado catheter yesterday which required straight cath 2. Nursing reports urinary retention of 700 mL today so Coronado catheter was reinserted. Patient did have a large bowel movement the day prior to discharge and felt his nausea had improved though had not resolved. Patient was able to tolerate minimal amounts of by mouth intake, and was able tolerate his tube feeds. Patient was subsequently discharged home with 5 additional days of Flagyl to complete a seven-day course of antibiotics for Giardia infection. He was also prescribed Flomax for urinary retention and discharged with Coronado catheter and urology follow-up. For his chronic nausea, he was newly prescribed Zyprexa. For constipation he was prescribed Senokot-S, Reglan. He was prescribed dronabinol to improve his appetite. He'll follow-up with his medical oncologist prior to resuming chemotherapy. I spent 45 minutes coordinating this discharge on 05/23 Gen: awake, alert HEENT: normocephalic, atraumatic, good hearing acuity, moist mucous membranes Resp: good air exchange, breathing comfortably with no accessory muscle use CVS: good distal perfusion x 4, GI: soft, NTTP, ND : no SPT, no CVAT, coronado catheter is present MSK: no pitting edema, no clubbing Neuro: non-focal, moving all extremities Psych: cooperative, euthymic mood Patient Condition at Discharge: Good Plan - Discharge Summary Discharge Rx Participant: No New Discharge Prescriptions: No Action amLODIPine [Norvasc] 5 mg PO DAILY #30 tab Pantoprazole Sodium [Protonix] 40 mg PO DAILY #30 tab Ondansetron [Zofran] 4 mg PO Q4HR PRN #45 tab PRN Reason: Nausea LORazepam [Ativan] 0.5 mg PO Q6H PRN PRN Reason: Nausea And Vomiting chlorproMAZINE [Thorazine] 10 mg PO Q6H PRN PRN Reason: hiccups Lidocaine Viscous 2% [Xylocaine Viscous] 30 ml PO TID PRN PRN Reason: Pain Prochlorperazine [Compazine] 10 mg PO Q6H PRN PRN Reason: Nausea carvediloL [Coreg] 6.25 mg PO BID HYDROcodone/APAP 7.5-325MG [Llewellyn 7.5-325] 1 tab PO Q6HR PRN PRN Reason: Pain Morphine Sulfate [Morphine Sulfate ER] 15 mg PO BID Acetaminophen Tab [Tylenol] 650 mg PO Q4HR PRN tab PRN Reason: Fever And/ Or Pain Discharge Medication List amLODIPine [Norvasc] 5 mg PO DAILY #30 tab 10/01/19 [Rx] carvediloL [Coreg] 6.25 mg PO BID 03/21/22 [History] Pantoprazole Sodium [Protonix] 40 mg PO DAILY #30 tab 03/23/22 [Rx] HYDROcodone/APAP 7.5-325MG [Llewellyn 7.5-325] 1 tab PO Q6HR PRN 03/30/22 [History] Morphine Sulfate [Morphine Sulfate ER] 15 mg PO BID 03/30/22 [History] Ondansetron [Zofran] 4 mg PO Q4HR PRN #45 tab 04/08/22 [Rx] Acetaminophen Tab [Tylenol] 650 mg PO Q4HR PRN tab 04/09/22 [Rx] LORazepam [Ativan] 0.5 mg PO Q6H PRN 04/17/22 [History] Lidocaine Viscous 2% [Xylocaine Viscous] 30 ml PO TID PRN 05/12/22 [History] Prochlorperazine [Compazine] 10 mg PO Q6H PRN 05/12/22 [History] chlorproMAZINE [Thorazine] 10 mg PO Q6H PRN 05/12/22 [History] Follow up Appointment(s)/Referral(s): Gideon Wells MD [STAFF PHYSICIAN] - 05/31/22 3:30 pm Bart Blackman MD [Primary Care Provider] - 1-2 days [facility], [REFERRING] - 1 Week [facility] Visiting Nurse, [NON-STAFF] - 1 Week Patient Instructions/Handouts: Olanzapine (By mouth)
--- NOTE | 2022-05-23 12:12 | P.PN ---
Subjective Progress Note Date: 05/23/22 Principal diagnosis: Intractable nausea, vomiting, diarrhea, on treatment for squamous cell esophageal carcinoma In follow-up today pt states no nausea or vomiting since yesterday afternoon! He had another BM today. Abd mildly tender, he still have coronado catheter in. No fever. He is tolerating oral intake along with the PEG feeding, no other c/o. Objective - Vital Signs Vital signs: Vital Signs Temp 98.2 F 05/23/22 07:15 Pulse 59 L 05/23/22 07:15 Resp 17 05/23/22 07:15 BP 123/69 05/23/22 07:15 Pulse Ox 96 05/23/22 07:15 FiO2 Intake & Output 05/22/22 05/23/22 05/23/22 18:59 06:59 18:59 Intake Total 561 Output Total 1260 1600 500 Balance -1260 -1039 -500 Weight 86.5 kg Intake: Tube Feeding 561 Output: Urine 1260 1600 500 Other: Voiding Method Indwelling Catheter Indwelling Catheter Indwelling Catheter # Bowel Movements 1 - Constitutional General appearance: Present: average body habitus, cooperative, no acute distress - EENT Eyes: Present: anicteric sclerae, EOMI ENT: Present: hearing grossly normal, normal oropharynx - Respiratory Respiratory: bilateral: CTA - Cardiovascular Rhythm: regular Heart sounds: normal: S1, S2 Abnormal Heart Sounds: Absent: systolic murmur, diastolic murmur, rub, S3 Gallop, S4 Gallop, click, other - Peripheral edema leg Peripheral Edema: bilateral: None - Gastrointestinal Gastrointestinal Comment(s): foul smelling BM General gastrointestinal: Present: distended (less then previously), normal bowel sounds, soft, tenderness (around PEG insertion, no unrealistic pain) - Integumentary Integumentary: Present: normal - Neurologic Neurologic: Present: CNII-XII intact - Musculoskeletal Musculoskeletal: Present: generalized weakness, strength equal bilaterally - Psychiatric Psychiatric: Present: A&O x's 3, appropriate affect, intact judgment & insight - Labs CBC & Chem 7: 05/22/22 06:51 05/22/22 06:51 Labs: Microbiology - Last 24 Hours (Table) 05/17/22 15:18 Blood Culture - Preliminary Blood No Growth after 120 hours Assessment and Plan (1) Chemotherapy induced nausea and vomiting Current Visit: Yes Status: Acute Priority: High Code(s): R11.2 - NAUSEA WITH VOMITING, UNSPECIFIED; T45.1X5A - ADVERSE EFFECT OF ANTINEOPLASTIC AND IMMUNOSUP DRUGS, INIT SNOMED Code(s): 19489297 (2) Small cell carcinoma of esophagus Current Visit: Yes Status: Acute Priority: Medium Code(s): C15.9 - MALIG NANT NEOPLASM OF ESOPHAGUS, UNSPECIFIED SNOMED Code(s): 635170137 (3) Pancytopenia due to antineoplastic chemotherapy Current Visit: Yes Status: Acute Priority: High Code(s): D61.810 - ANTINEOPLASTIC CHEMOTHERAPY INDUCED PANCYTOPENIA; T45.1X5A - ADVERSE EFFECT OF ANTINEOPLASTIC AND IMMUNOSUP DRUGS, INIT SNOMED Code(s): 182349450955663 Plan: Pancytopenia secondary to chemotherapy -CBC ordered, pending. Anticipate the counts being stable-pt is feeling good, is on treatment for infection, he had GCSF, and he is far enough out from chemo to anticipate count recovery from that. Squamous cell esophageal carcinoma -Patient is status post 2 cycles carbo WE[employer]. Poor physical and hematological tolerance -Chemotherapy is on hold for now, pt is aware. -Follow-up with Medical Oncologist prior to resuming therapy, appt in Discharge plan. Primary Oncologist will determine when chemo to be resumed, dose adjustments, and if addition of G-CSF is needed. Nausea, vomiting, diarrhea -No N,V since yesterday afternoon. Scop patch was the only med change yesterday. Rx sent to the same for pt to continue at home -Formed BM this AM. Abd distension and bloating little less then yesterday -Giardia stool study positive, Patient is on antibiotics for the same Dysphagia -Status post PEG insertion -Tolerating tube feedings overall well -Tolerating some solid foods and liquids. Patient will eat what he can tolerate -Surgery following Urinary retention post anesthesia -Pending Urology recommendations foley. Mccall from Hem/Onc standpoint for DC once cleared by Attending and other Consulting MDs
[2022-05-23 12:42] VITALS: BP 118/72; PULSE 58; TEMP 98.5
[2022-05-23 12:49] LABS: Anisocytosis Slight; HCT 24.5 % (39.0-53.0); HGB 8.3 gm/dL (13.0-17.5); MCH 31.6 pg (25.0-35.0); MCHC 33.7 g/dL (31.0-37.0); MCV 93.7 fL (80.0-100.0); Mean Platelet Volume 12.7; Poikilocytosis Slight; RBC 2.62 m/uL (4.30-5.90); RDW 16.9 % (11.5-15.5); WBC 4.4 k/uL (3.8-10.6)
[2022-05-23 13:00] LABS: African American GFR (CKD) >90 (>60 ml/min/1.73 sqM); Anion Gap 3 mmol/L; Blood Urea Nitrogen 11 mg/dL (9-20); Calcium 7.8 mg/dL (8.4-10.2); Carbon Dioxide 34 mmol/L (22-30); Chloride 98 mmol/L (98-107); Glucose 145 mg/dL (74-99); Magnesium 2.1 mg/dL (1.6-2.3); Non-African American GFR(CKD) >90 (>60 ml/min/1.73 sqM); Potassium 4.7 mmol/L (3.5-5.1); Sodium 135 mmol/L (137-145)
[2022-05-23 13:04] LABS: Platelet Count 36 k/uL (150-450)
[2022-05-23 14:35] LABS: Band Neutrophils % 2 %; Eosinophils # (M) 0.04 k/uL (0-0.7); Lymphocytes # (M) 1.41 k/uL (1.0-4.8); Metamyelocytes # (M) 0.09 k/uL (0); Metamyelocytes % 2 %; Myelocytes # (M) 0.09 k/uL (0); Myelocytes % 2 %; Neutrophils % (M) 54 %; Nucleated Red Blood Cells 1 /100 WBC (0-0); Total Cells Counted 200
== END 2022-05-23 16:31 | disposition home health service (06) | DRG 808 ==
LOC: EC 12:37 → 5NMEDONC 16:13
PROVIDERS: ADMIT Student in an Organized Health Care Education/Training Program; ATTEND Student in an Organized Health Care Education/Training Program
PROC: 3E0G76Z Introduction of Nutritional Substance into Upper GI, Via Natural or Artificial Opening (ICD-10-PCS; 2022-05-15)
PROC: 0DH63UZ Insertion of Feeding Device into Stomach, Percutaneous Approach (ICD-10-PCS; principal; 2022-05-15 08:00)
DX: D70.1 Agranulocytosis secondary to cancer chemotherapy (principal); E43 Unspecified severe protein-calorie malnutrition; A07.1 Giardiasis [lambliasis]; C15.5 Malignant neoplasm of lower third of esophagus; E87.20 Acidosis, unspecified; K80.10 Calculus of gallbladder with chronic cholecystitis without obstruction; C78.7 Secondary malignant neoplasm of liver and intrahepatic bile duct; C7A.8 Other malignant neuroendocrine tumors; N99.89 Other postprocedural complications and disorders of genitourinary system; D61.810 Antineoplastic chemotherapy induced pancytopenia; E88.09 Other disorders of plasma-protein metabolism, not elsewhere classified; R62.7 Adult failure to thrive; I10 Essential (primary) hypertension; R33.8 Other retention of urine; R50.81 Fever presenting with conditions classified elsewhere; K22.4 Dyskinesia of esophagus; T45.1X5A Adverse effect of antineoplastic and immunosuppressive drugs, initial encounter; K29.70 Gastritis, unspecified, without bleeding; E86.0 Dehydration; W19.XXXA Unspecified fall, initial encounter; R29.6 Repeated falls; M54.50 Low back pain, unspecified; K59.00 Constipation, unspecified; R01.1 Cardiac murmur, unspecified; I25.10 Atherosclerotic heart disease of native coronary artery without angina pectoris; Z95.810 Presence of automatic (implantable) cardiac defibrillator; Z68.27 Body mass index [BMI] 27.0-27.9, adult; Z79.899 Other long term (current) drug therapy; Z91.81 History of falling
CPT/HCPCS: 36415; 43246; 71046; 71260; 74176; 74177; 74230; 74240; 80048; 80053; 81001; 81003; 83605; 83735; 84484; 85025; 85027; 85610; 85730; 86850; 86900; 86901; 86920; 87040; 87045; 87046; 87324; 87328; 87329; 87493; 93005; 96361; 96374; 96375; 99285